=== PATIENT | male | born 1930 | race Caucasian/White ===

== ENCOUNTER → 2017-04-23 | Outpatient (CLI) | payer OTHER ==
[~2017-04-23] MED LIST: ARC10 PO; ASPI81TA28 PO; B-COTAB18 PO; FINA5TAB PO; GLC500 PO; LISI-461 PO; PANT40TA PO; SIMV40TA2 PO; TERA1CAP63 PO
[2017-04-23 12:28] LABS: HEMATOCRIT 34.1 % (42-52); MEAN CORPUSCULAR HEMOGLOBIN 29.5 pg (25-34); MEAN CORPUSCULAR HGB CONC 31.1 g/dl (32-36); MEAN PLATELET VOLUME 15.5 fL (7.4-10.4); PLATELET COUNT 199 K/uL (130-400); RED BLOOD COUNT 3.59 M/uL (4.7-6.1); WHITE BLOOD COUNT 4.67 K/uL (4.8-10.8)
[2017-04-23 13:12] LABS: BLOOD UREA NITROGEN 29 mg/dl (7-18); BUN/CREATININE RATIO 16.9 (10-20); CALCIUM 8.5 mg/dl (8.5-10.1); CARBON DIOXIDE 27 mmol/L (21-32); CHLORIDE 109 mmol/L (98-107); GLUCOSE 88 mg/dl (70-99); POTASSIUM 4.2 mmol/L (3.5-5.1); SODIUM 141 mmol/L (136-145)
== END | disposition home or self-care (01) ==
LOC: C.LABWYN 15:23
PROVIDERS: ATTEND Internal Medicine
DX: N18.9 Chronic kidney disease, unspecified (principal); M85.80 Other specified disorders of bone density and structure, unspecified site; E55.9 Vitamin D deficiency, unspecified

== ENCOUNTER → 2018-03-30 | Outpatient (CLI) | payer OTHER ==
[2018-03-30 12:54] LABS: HEMATOCRIT 36.2 % (42-52); HEMOGLOBIN 11.2 g/dL (14.0-18.0); MEAN CELL VOLUME 94.8 fL (80-100); MEAN CORPUSCULAR HEMOGLOBIN 29.3 pg (25-34); MEAN CORPUSCULAR HGB CONC 30.9 g/dl (32-36); MEAN PLATELET VOLUME 14.9 fL (7.4-10.4); PLATELET COUNT 220 K/uL (130-400); RED CELL DISTRIBUTION WIDTH CV 14.4 % (11.5-14.5); WHITE BLOOD COUNT 6.42 K/uL (4.8-10.8)
[2018-03-30 13:33] LABS: BLOOD UREA NITROGEN 31 mg/dl (7-18); CALCIUM 8.7 mg/dl (8.5-10.1); CARBON DIOXIDE 25 mmol/L (21-32); CREATININE 1.72 mg/dl (0.60-1.40); GLUCOSE 87 mg/dl (70-99); POTASSIUM 4.1 mmol/L (3.5-5.1); SODIUM 139 mmol/L (136-145)
== END | disposition home or self-care (01) ==
LOC: C.LABWYN 16:22
PROVIDERS: ATTEND Internal Medicine
DX: N18.2 Chronic kidney disease, stage 2 (mild) (principal)

== ENCOUNTER 2019-06-02 12:48 | Inpatient (IN) ==
[2019-06-02] MEDS ORDERED: OPTIRAY 320 125ml IV PRN (12:58)
--- NOTE | 2019-06-02 13:10 | CT Scan Report ---
HEAD CT NONCONTRAST CT DOSE: 1331.70 mGy.cm HISTORY: Stroke evaluation TECHNIQUE: Multiaxial CT images of the head were performed without the use of intravenous contrast. A utomated exposure control was utilized for this study. A dose lowering technique was utilized adheri ng to the principles of ALARA. Comparison: Head CT 05/15/2018. Findings: Mild mucosal thickening within the paranasal sinuses. The mastoid air cells are clear. 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 The calvarium and skull base are intact. There is no mass, hematoma, midli ne shift, acute infarct. White matter hypodensity is nonspecific but suggestive of microvascular isch emic change. The ventricles and sulci demonstrate mild age-related involutional changes. Focal area o f encephalomalacia within the left posterior temporal lobe consistent with an old MCA territory infar ct. Impression: No acute intracranial abnormality. Old left MCA territory infarct. Electronically signed by: Daryn Taylor M.D. 06/02/2019 1:08 PM
--- NOTE | 2019-06-02 13:16 | XRay Report ---
XR chest 1V portable CLINICAL HISTORY: weakness COMPARISON STUDY: 11/12/2018 FINDINGS: The heart is enlarged. There is no lobar consolidation. There is no failure. There are no s ignificant pleural effusions. There is minor basilar atelectasis/scarring.[ IMPRESSION: No active disease in the chest. Electronically signed by: Wesley Dinh M.D. 06/02/2019 1:15 PM
--- NOTE | 2019-06-02 13:16 | CT Scan Report ---
CT angio head w con CLINICAL HISTORY: weakness TECHNIQUE: CT angiography of the head was performed in a dynamic helical fashion during intravenous a dministration of 119 cc of Optiray 320. MIP imaging was performed. A dose lowering technique was util ized adhering to the principles of ALARA. CT DOSE: COMPARISON STUDY: May 15, 2018 FINDINGS: There are no lesion suspicious for aneurysm. There are no major intracranial branch occlusi ons. The dural venous sinuses appear patent. There is an old left temporal lobe infarct IMPRESSION: 1. Old left temporal lobe infarct 2. Otherwise unremarkable CT angiography of the brain. Electronically signed by: Wesley Dinh M.D. 06/02/2019 1:14 PM
--- NOTE | 2019-06-02 13:19 | CT Scan Report ---
CT angio neck with con CLINICAL HISTORY: 89 years-old Male presenting with weakness, stroke evaluation. TECHNIQUE: Multidetector CT angiography of the neck was performed after the administration of intrave nous contrast. 3-D volumetric and/or maximum intensity projection (MIP) images were subsequently boris nstructed for review. IV contrast: 119 mL of Optiray 320. One or more dose lowering techniques were u sed consistent with the principles of ALARA (as low as reasonably achievable), including automatic ex posure control, mA or kV adjustment to individual patient size, and/or use of iterative reconstructio n. Stenosis measurements were based on NASCET-like criteria (distal lumen diameter as the denominator for stenosis measurement). COMPARISON: 05/15/2018. CT DOSE (mGy.cm): The estimated cumulative dose is 1331.70. FINDINGS: Patch Sander topogram: Unremarkable. Aortic arch: Atherosclerosis of the three-vessel aortic arch with patent origins of the branch vessel s. Innominate artery: Patent. Right subclavian artery: Patent. Right common carotid artery: Patent. Right internal and external carotid arteries: Extensive largely calcified atherosclerotic plaque at t he carotid bifurcation. This does not result in significant narrowing of the origins or lumens of the internal/external carotid arteries. Left common carotid artery: Patent. Left internal and external carotid arteries: Predominantly calcified atherosclerotic plaque at the ca rotid bifurcation with less than 25% stenosis of the origin of the internal carotid artery. The remai nder of the course of the internal carotid artery is widely patent. External carotid artery origin an d proximal course narrowed less than 50% by noncalcified atherosclerotic plaque. Left subclavian artery: Patent. Vertebral arteries: Codominant vertebral arteries. Origins and courses of the bilateral vertebral art eries patent. Other: Limited intracranial evaluation within normal limits. Soft tissues of the neck normal allowing for the phase of contrast. Degenerative changes of the cervical spine. 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 Lung apices clear. IMPRESSION: 1. Atherosclerosis with less than 25% stenosis of the left ICA. No significant stenosis of the right ICA. 2. No evidence of focal vessel occlusion or dissection. Electronically signed by: Ole Allen M.D. 06/02/2019 1:18 PM
[2019-06-02 13:22] LABS: Basophils # (auto) 0.07 K/uL (0-0.2); Basophils % (auto) 1.4 %; Eosinophils # (auto) 0.71 K/uL (0-0.5); Eosinophils % (auto) 13.7 %; Hematocrit (blood only) 26.5 % (42-52); Hemoglobin 8.1 g/dL (14.0-18.0); Immature Granulocytes # (auto) 0.01 K/uL (0.00-0.02); Immature Granulocytes % (auto) 0.2 %; Lymphocytes # (auto) 0.56 K/uL (1.2-3.4); Lymphocytes % (auto) 10.8 %; Mean Corpuscular Hemoglobin 26.7 pg (25-34); Mean Corpuscular Hgb Conc 30.6 g/dL (32-36); Mean Corpuscular Volume 87.5 fL (80-100); Mean Platelet Volume 10.4 fL (7.4-10.4); Monocytes # (auto) 0.57 K/uL (0.11-0.59); Neutrophils # (auto) 3.25 K/uL (1.4-6.5); Neutrophils % (auto) 62.9 %; Platelet Count 207 K/uL (130-400); RDW Coefficient of Variation 16.4 % (11.5-14.5); RDW Standard Deviation 52.6 fL (36.4-46.3); Red Blood Count 3.03 M/uL (4.7-6.1); White Blood Count 5.17 K/uL (4.8-10.8)
[2019-06-02] MEDS ORDERED: ALTEPLASE For Stroke IV STA (13:28)
[2019-06-02 13:33] LABS: INR 1.1 (0.9-1.1); Partial Thromboplastin Ratio 0.9; Partial Thromboplastin Time 23.9 Seconds (21.0-31.0); Prothrombin Time 11.5 Seconds (9.0-12.0)
[2019-06-02] MEDS ORDERED: SODIUM CHLORIDE 0.9% 1000ML 500 ML IV ONE (13:36)
[2019-06-02] MEDS ORDERED: Alteplase Bolus 9 MG in SYRINGE 0 ML IV ONE (13:38)
[2019-06-02 13:39] LABS: Alanine Aminotransferase 13 U/L (12-78); Albumin Level 3.2 gm/dl (3.4-5.0); Aspartate Aminotransferase 10 U/L (15-37); BUN Creatinine Ratio 15.5 (10-20); Blood Urea Nitrogen 26 mg/dl (7-18); Calcium 7.8 mg/dl (8.5-10.1); Carbon Dioxide 27 mmol/L (21-32); Chloride 107 mmol/L (98-107); Est GFR (African American) 42.6; Est GFR (Non-African American) 36.8; Glucose 99 mg/dl (70-99); Magnesium 2.2 mg/dl (1.8-2.4); Potassium 4.4 mmol/L (3.5-5.1); Sodium 138 mmol/L (136-145)
[2019-06-02] MEDS ORDERED: ALTEPLASE, RECOMBINANT 81 MG in EMPTY BAG 0 ML IV ONE (13:39)
[2019-06-02] MEDS ORDERED: PRIMARY PLUMSET, PE LINED TUBING, 113 IN, NON-DEHP (2260-0500) IV ONE (13:39)
[2019-06-02 13:44] LABS: Albumin Globulin Ratio 0.9 (0.9-2); Alkaline Phosphatase 73 U/L (45-117); Bilirubin,Total 0.4 mg/dl (0.2-1); Globulin 3.6 gm/dl (2.5-4.0); Total Protein 6.8 gm/dl (6.4-8.2); Troponin I < 0.015 ng/ml (0-0.045)
[2019-06-02 13:49] LABS: iSTAT Creatinine 1.8 mg/dl (0.6-1.3); iSTAT Hemoglobin 8.2 g/dl (14.0-18.0); iSTAT Ionized Calcium 1.12 mmol/l (1.12-1.32); iSTAT Potassium 4.4 mEq/L (3.3-5.0)
[2019-06-02] MEDS: MAGNESIUM SULFATE / D5W 1 GM/100 ML BAG IV SCH ×2 (13:49→14:43)
[2019-06-02] MEDS: SODIUM CHLORIDE 0.9% 1000ML 1,000 ML IV SCH (13:49)
--- NOTE | 2019-06-02 13:59 | Emergency Department Note ---
Entered by Monica Crystal acting as a scribe for Vinny Pina DO History of Present Illness General Chief complaint: Stroke Alert Time Seen by Provider: 06/02/19 12:49 Source: family and EMS History of Present Illness Provider complaint: stroke symtpoms Onset (ago): hour(s) less than 1 Location: head Radiation: non-radiation Pain Consistency: + constant Quality: + other (stroke symtpoms) The patient is an 89 y/o male who presents to the emergency department for evaluation of stroke symptoms that began prior to arrival. EMS states that the last known well was when he was up and walking around at 09:30am. At 11:50am they note that he was found slumped over by staff. They note that he takes Plavix and aspirin daily. EMS states that the patient is conscious but was not answering questions well. The son notes that the patient does have a dementia history but a few days ago when they talked the patient was slightly confused. They note that the patient had a stroke in 04/2018. The patient was following commands but was not answering questions on exam. HPI and ROS are limited secondary to patients condition. Home Medications Home Medications Medication Instructions Recorded Confirmed Type aspirin [Aspirin Low Dose] 81 mg PO QAM 05/15/18 06/02/19 History finasteride 5 mg PO DAILY 05/15/18 06/02/19 History lisinopril 5 mg PO DAILY 05/15/18 06/02/19 History loratadine 10 mg PO DAILY 05/15/18 06/02/19 History pantoprazole 40 mg PO DAILYBB 05/15/18 06/02/19 History terazosin 10 mg PO DAILY 05/15/18 06/02/19 History vitamin B complex [B Complex 1] 1 tab PO DAILY 05/15/18 06/02/19 History clopidogrel 75 mg PO QAM #90 tab 05/18/18 06/02/19 Rx acetaminophen [Tylenol] 650 mg PO Q6H PRN 11/12/18 06/02/19 History atorvastatin [Lipitor] 40 mg PO QAM 11/12/18 06/02/19 History dextromethorphan-guaifenesin 5 ml PO Q4 PRN 11/12/18 06/02/19 History [Tussin DM] triamcinolone acetonide 1 applic TOPICAL BID PRN 06/02/19 06/02/19 History Allergies Allergy/AdvReac Type Severity Reaction Status Date / Time No Known Allergies Allergy Unverified 06/02/19 13:23 Past Med/Surg History Medical History History of ischemic left MCA stroke (Chronic) CKD (chronic kidney disease), stage III (Chronic) Hyperlipidemia (Chronic) Dementia (Chronic) BPH (benign prostatic hyperplasia) (Chronic) Hypertension (Chronic) Anemia (Chronic) Surgical History History of shoulder surgery (Resolved) History of hernia surgery (Resolved 2014) Hx of cataract surgery (Resolved 2013) Family History Other Hypertension Social History Preferred Language: Armenian Communication Ability: Impaired [employer]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 status: retired Other Information That Helps Us Care for You: No Feels Safe at Home: Yes Safety Concerns: Feels Safe At This Time Smoking Status: Never smoker Hx Alcohol Use: No Hx Substance Use: No Review of Systems HPI and ROS are limited secondary to patients condition. Physical Exam Vital Signs Vital Signs - 24 hr 06/02/19 12:54 06/02/19 13:52 06/02/19 14:07 Temperature 36.7 C Temperature Source Oral Sepsis Recent Fever Within 48 Hours No Sepsis Action Taken by Nursing No Action Required Pulse Rate 61 Pulse Rate [Apical] 60 57 L Pulse Rhythm Regular Pulse Rhythm [Apical] Regular Regular Pulse Strength Normal Pulse Strength [Apical] Normal Respiratory Rate 18 18 20 Respiratory Effort / Characteristics Non-Labored Spontaneous Non-Labored Spontaneous Non-Labored Spontaneous Respiratory Depth Normal Normal Normal Respiratory Pattern Regular Regular Regular Blood Pressure 131/52 L Blood Pressure [Left Arm] 120/51 L 120/62 Blood Pressure Mean 78 Blood Pressure Mean [Left Arm] 74 81 Blood Pressure Position [Left Arm] Lying Pulse Oximetry 99 99 97 Oxygen Delivery Method Room Air Room Air Room Air 06/02/19 14:22 06/02/19 14:37 06/02/19 14:52 Temperature Temperature Source Sepsis Recent Fever Within 48 Hours Sepsis Action Taken by Nursing Pulse Rate Pulse Rate [Apical] 67 58 L 64 Pulse Rhythm Pulse Rhythm [Apical] Regular Pulse Strength Pulse Strength [Apical] Normal Normal Respiratory Rate 18 20 20 Respiratory Effort / Characteristics Non-Labored Spontaneous Non-Labored Spontaneous Non-Labored Spontaneous Respiratory Depth Normal Normal Normal Respiratory Pattern Regular Regular Regular Blood Pressure Blood Pressure [Left Arm] 128/49 L 134/49 L 141/59 H Blood Pressure Mean Blood Pressure Mean [Left Arm] 75 77 86 Blood Pressure Position [Left Arm] Sitting Sitting Sitting Pulse Oximetry 99 99 100 Oxygen Delivery Method Room Air Room Air Room Air 06/02/19 15:07 06/02/19 15:22 06/02/19 15:37 Temperature Temperature Source Sepsis Recent Fever Within 48 Hours Sepsis Action Taken by Nursing Pulse Rate Pulse Rate [Apical] 74 63 63 Pulse Rhythm Pulse Rhythm [Apical] Regular Regular Regular Pulse Strength Pulse Strength [Apical] Respiratory Rate 20 20 20 Respiratory Effort / Characteristics Non-Labored Spontaneous Non-Labored Spontaneous Non-Labored Spontaneous Respiratory Depth Normal Normal Normal Respiratory Pattern Regular Regular Blood Pressure Blood Pressure [Left Arm] 151/60 H 132/63 138/57 L Blood Pressure Mean Blood Pressure Mean [Left Arm] 90 86 84 Blood Pressure Position [Left Arm] Lying Lying Lying Pulse Oximetry 98 97 97 Oxygen Delivery Method Room Air Room Air Room Air GENERAL: Patient is listless and slow to respond to questions. He does respond to questions and follows commands slowly. EYES: The conjunctivae are clear. The pupils are round and reactive. No gaze preference was noted. EARS, NOSE, MOUTH AND THROAT: The nose is without any evidence of any deformity. Mucous membranes are moist tongue is midline NECK: The neck is nontender and supple. RESPIRATORY: Normal respiratory effort is noted there is no evidence of wheezing rhonchi or rales CARDIOVASCULAR: Irregular rhythm was noted to auscultation. There was a systolic murmur noted to auscultation. GASTROINTESTINAL: The abdomen is soft. The abdomen is mildly distended. There is no tenderness. Rectal exam revealed brown stool that was heme-negative. MUSCULOSKELETAL/EXTREMITIES: There is no evidence of gross deformity full range of motion is noted in the hips and shoulders SKIN: There is no obvious evidence of any rash. Pedal edema was noted bilaterally. NEUROLOGIC: Patient appeared aphasic and could not answer questions. He mumbles and his speech was incomprehensible. Patient's payment specialist strength was symmetric but diminished bilaterally. Patient is able to hold each leg off the bed for less than 5 seconds. Course 1258: Past medical records reviewed. The patient was evaluated in room B01. A complete history and physical exam was performed. 1307: I spoke with Dr Sharla calabrese. 1352: I spoke with Amelia Rojas for Dr. Patton. She will evaluate for further management. 1234: I checked on the patient. 1435: I reevaluated the patient and he is looking much better and is talking now. Administered Medications Sodium Chloride (Nss 1000ml) 1,000 mls @ 50 mls/hr IV .Q20H HYACINTH Stop: 07/02/19 12:59 Last Admin: 06/02/19 13:49 Dose: 50 mls/hr Documented by: [id number] Ioversol (Optiray 320 125ml) 119 ml IV ONCE PRN PRN Reason: Interaction Checking Stop: 06/06/19 12:57 Last Admin: 06/02/19 12:59 Dose: 119 ml Documented by: [id number] Discontinued Medications Alteplase, Recombinant (Activase For Stroke) 1 ea IV NOW STA; Protocol Stop: 06/02/19 13:29 Last Admin: 06/02/19 14:36 Dose: Not Given Documented by: [id number] Alteplase, Recombinant 9 mg/ (Syringe) 9 mls @ 9 mls/min IV ONCE ONE Stop: 06/02/19 13:39 Last Admin: 06/02/19 13:37 Dose: 9 mls/min Documented by: [id number] Cosigned by: [id number] Alteplase, Recombinant 81 mg/ (EMPTY BAG) 0.81 mls @ 0.81 mls/hr IV ONCE ONE Stop: 06/02/19 13:40 Last Infusion: 06/02/19 14:43 Dose: 0 mls/hr Documented by: [id number] Cosigned by: [id number] Admin: 06/02/19 13:41 Dose: 0.8 mls/hr Documented by: [id number] Cosigned by: [id number] Magnesium Sulfate/Dextrose (Magnesium Sulfate / D5w) 1 gm in 100 mls @ 100 mls/hr IV Q1H HYACINTH Stop: 06/02/19 15:44 Last Admin: 06/02/19 14:43 Dose: 100 mls/hr Documented by: [id number] Infusion: 06/02/19 14:43 Dose: 100 mls/hr Documented by: [id number] Admin: 06/02/19 13:49 Dose: 100 mls/hr Documented by: [id number] Sodium Chloride (Nss 1000ml) 500 mls @ 999 mls/hr IV .Q31M ONE Stop: 06/02/19 14:06 Last Infusion: 06/02/19 14:47 Dose: 0 mls/hr Documented by: [id number] Admin: 06/02/19 13:49 Dose: 999 mls/hr Documented by: [id number] Medical Decision Making Differential Diagnosis Differential includes acute coronary syndrome, myocardial infarction, CVA, TIA, anemia, infection, pneumonia, UTI, pyelonephritis, poor nutrition, dehydration, electrolyte disturbance,hypoglycemia. Medical Records Attestation: I reviewed the patient's medical records. Home Medications Current Medication List: was personally reviewed by me Laboratory Data Attestation: I reviewed the patient's lab results. Result diagrams: 06/02/19 13:09 06/02/19 13:09 Lab Results 06/02/19 06/02/19 06/02/19 Range/Units 13:09 13:09 13:09 WBC 5.17 (4.8-10.8) K/uL RBC 3.03 L (4.7-6.1) M/uL Hgb 8.1 L (14.0-18.0) g/dL POC Hgb (14.0-18.0) g/dl Hct 26.5 L (42-52) % POC Hct (42-52) % MCV 87.5 (80-100) fL MCH 26.7 (25-34) pg MCHC 30.6 L (32-36) g/dL RDW Std Deviation 52.6 H (36.4-46.3) fL RDW Coeff of Octavio 16.4 H (11.5-14.5) % Plt Count 207 (130-400) K/uL MPV 10.4 (7.4-10.4) fL Immature Gran % (Auto) 0.2 % Neut % (Auto) 62.9 % Lymph % (Auto) 10.8 % [place] % (Auto) 11.0 % Eos % (Auto) 13.7 % Baso % (Auto) 1.4 % Immature Gran # (Auto) 0.01 (0.00-0.02) K/uL Neut # (Auto) 3.25 (1.4-6.5) K/uL Lymph # (Auto) 0.56 L (1.2-3.4) K/uL [place] # (Auto) 0.57 (0.11-0.59) K/uL Eos # (Auto) 0.71 H (0-0.5) K/uL Baso # (Auto) 0.07 (0-0.2) K/uL PT 11.5 (9.0-12.0) Seconds INR 1.1 (0.9-1.1) APTT 23.9 (21.0-31.0) Seconds PTT Ratio 0.9 POC Sodium (135-144) mEq/L Sodium 138 (136-145) mmol/L POC Potassium (3.3-5.0) mEq/L Potassium 4.4 (3.5-5.1) mmol/L POC Chloride (101-112) mEq/L Chloride 107 (98-107) mmol/L Carbon Dioxide 27 (21-32) mmol/L POC Total CO2 (24-31) mEq/l Anion Gap 4.0 (3-11) POC Anion Gap (16-25) mmol/L POC BUN (7-18) mg/dl BUN 26 H (7-18) mg/dl Creatinine 1.65 H (0.6-1.4) mg/dl POC Creatinine (0.6-1.3) mg/dl Est Cr Clr Drug Dosing Not Reportable Est GFR ( Amer) 42.6 Est GFR (Non-Af Amer) 36.8 BUN/Creatinine Ratio 15.5 (10-20) Glucose 99 (70-99) mg/dl POC Glucose (70-99) POC Glucose (other) (70-99) mg/dl Calcium 7.8 L (8.5-10.1) mg/dl POC Ioniz Calcium Juan C (1.12-1.32) mmol/l Magnesium 2.2 (1.8-2.4) mg/dl Total Bilirubin 0.4 (0.2-1) mg/dl AST 10 L (15-37) U/L ALT 13 (12-78) U/L Alkaline Phosphatase 73 (45-117) U/L Troponin I < 0.015 (0-0.045) ng/ml Total Protein 6.8 (6.4-8.2) gm/dl Albumin 3.2 L (3.4-5.0) gm/dl Globulin 3.6 (2.5-4.0) gm/dl Albumin/Globulin Ratio 0.9 (0.9-2) Urine Color Urine Appearance (Clear) Urine pH (4.5-7.5) Ur Specific [place] (1.000-1.030) Urine Protein (Negative) Urine Glucose (UA) (Negative) Urine Ketones (Negative) Urine Blood (Negative) Urine Nitrite (Negative) Urine Bilirubin (Negative) Urine Urobilinogen (Negative) Ur Leukocyte Esterase (Negative) Blood Type Antibody Screen 06/02/19 06/02/19 06/02/19 Range/Units 13:09 13:12 13:13 WBC (4.8-10.8) K/uL RBC (4.7-6.1) M/uL Hgb (14.0-18.0) g/dL POC Hgb 8.2 L (14.0-18.0) g/dl Hct (42-52) % POC Hct 24 L (42-52) % MCV (80-100) fL MCH (25-34) pg MCHC (32-36) g/dL RDW Std Deviation (36.4-46.3) fL RDW Coeff of Octavio (11.5-14.5) % Plt Count (130-400) K/uL MPV (7.4-10.4) fL Immature Gran % (Auto) % Neut % (Auto) % Lymph % (Auto) % [place] % (Auto) % Eos % (Auto) % Baso % (Auto) % Immature Gran # (Auto) (0.00-0.02) K/uL Neut # (Auto) (1.4-6.5) K/uL Lymph # (Auto) (1.2-3.4) K/uL [place] # (Auto) (0.11-0.59) K/uL Eos # (Auto) (0-0.5) K/uL Baso # (Auto) (0-0.2) K/uL PT (9.0-12.0) Seconds INR (0.9-1.1) APTT (21.0-31.0) Seconds PTT Ratio POC Sodium 139 (135-144) mEq/L Sodium (136-145) mmol/L POC Potassium 4.4 (3.3-5.0) mEq/L Potassium (3.5-5.1) mmol/L POC Chloride 104 (101-112) mEq/L Chloride (98-107) mmol/L Carbon Dioxide (21-32) mmol/L POC Total CO2 25 (24-31) mEq/l Anion Gap (3-11) POC Anion Gap 16.0 (16-25) mmol/L POC BUN 26 H (7-18) mg/dl BUN (7-18) mg/dl Creatinine (0.6-1.4) mg/dl POC Creatinine 1.8 H (0.6-1.3) mg/dl Est Cr Clr Drug Dosing Est GFR ( Amer) Est GFR (Non-Af Amer) BUN/Creatinine Ratio (10-20) Glucose (70-99) mg/dl POC Glucose 105 H (70-99) POC Glucose (other) 103 H (70-99) mg/dl Calcium (8.5-10.1) mg/dl POC Ioniz Calcium Juan C 1.12 (1.12-1.32) mmol/l Magnesium (1.8-2.4) mg/dl Total Bilirubin (0.2-1) mg/dl AST (15-37) U/L ALT (12-78) U/L Alkaline Phosphatase (45-117) U/L Troponin I (0-0.045) ng/ml Total Protein (6.4-8.2) gm/dl Albumin (3.4-5.0) gm/dl Globulin (2.5-4.0) gm/dl Albumin/Globulin Ratio (0.9-2) Urine Color Urine Appearance (Clear) Urine pH (4.5-7.5) Ur Specific [place] (1.000-1.030) Urine Protein (Negative) Urine Glucose (UA) (Negative) Urine Ketones (Negative) Urine Blood (Negative) Urine Nitrite (Negative) Urine Bilirubin (Negative) Urine Urobilinogen (Negative) Ur Leukocyte Esterase (Negative) Blood Type A Positive Antibody Screen NEGATIVE 06/02/19 Range/Units 14:17 WBC (4.8-10.8) K/uL RBC (4.7-6.1) M/uL Hgb (14.0-18.0) g/dL POC Hgb (14.0-18.0) g/dl Hct (42-52) % POC Hct (42-52) % MCV (80-100) fL MCH (25-34) pg MCHC (32-36) g/dL RDW Std Deviation (36.4-46.3) fL RDW Coeff of Octavio (11.5-14.5) % Plt Count (130-400) K/uL MPV (7.4-10.4) fL Immature Gran % (Auto) % Neut % (Auto) % Lymph % (Auto) % [place] % (Auto) % Eos % (Auto) % Baso % (Auto) % Immature Gran # (Auto) (0.00-0.02) K/uL Neut # (Auto) (1.4-6.5) K/uL Lymph # (Auto) (1.2-3.4) K/uL [place] # (Auto) (0.11-0.59) K/uL Eos # (Auto) (0-0.5) K/uL Baso # (Auto) (0-0.2) K/uL PT (9.0-12.0) Seconds INR (0.9-1.1) APTT (21.0-31.0) Seconds PTT Ratio POC Sodium (135-144) mEq/L Sodium (136-145) mmol/L POC Potassium (3.3-5.0) mEq/L Potassium (3.5-5.1) mmol/L POC Chloride (101-112) mEq/L Chloride (98-107) mmol/L Carbon Dioxide (21-32) mmol/L POC Total CO2 (24-31) mEq/l Anion Gap (3-11) POC Anion Gap (16-25) mmol/L POC BUN (7-18) mg/dl BUN (7-18) mg/dl Creatinine (0.6-1.4) mg/dl POC Creatinine (0.6-1.3) mg/dl Est Cr Clr Drug Dosing Est GFR ( Amer) Est GFR (Non-Af Amer) BUN/Creatinine Ratio (10-20) Glucose (70-99) mg/dl POC Glucose (70-99) POC Glucose (other) (70-99) mg/dl Calcium (8.5-10.1) mg/dl POC Ioniz Calcium Juan C (1.12-1.32) mmol/l Magnesium (1.8-2.4) mg/dl Total Bilirubin (0.2-1) mg/dl AST (15-37) U/L ALT (12-78) U/L Alkaline Phosphatase (45-117) U/L Troponin I (0-0.045) ng/ml Total Protein (6.4-8.2) gm/dl Albumin (3.4-5.0) gm/dl Globulin (2.5-4.0) gm/dl Albumin/Globulin Ratio (0.9-2) Urine Color Yellow Urine Appearance Clear (Clear) Urine pH 5.0 (4.5-7.5) Ur Specific [place] 1.022 (1.000-1.030) Urine Protein Negative (Negative) Urine Glucose (UA) Negative (Negative) Urine Ketones Negative (Negative) Urine Blood Negative (Negative) Urine Nitrite Negative (Negative) Urine Bilirubin Negative (Negative) Urine Urobilinogen Negative (Negative) Ur Leukocyte Esterase Negative (Negative) Blood Type Antibody Screen Imaging Data Radiologist's Impression: Radiology results as stated below per my review and the radiologist's interpretation: CT angio neck with con CLINICAL HISTORY: 89 years-old Male presenting with weakness, stroke evaluation. TECHNIQUE: Multidetector CT angiography of the neck was performed after the administration of intravenous contrast. 3-D volumetric and/or maximum intensity projection (MIP) images were subsequently reconstructed for review. IV contrast: 119 mL of Optiray 320. One or more dose lowering techniques were used consistent with the principles of ALARA (as low as reasonably achievable), including automatic exposure control, mA or kV adjustment to individual patient size, a nd/or use of iterative reconstruction. Stenosis measurements were based on NASCET-like criteria (distal lumen diameter as the denominator for stenosis measurement). COMPARISON: 05/15/2018. CT DOSE (mGy.cm): The estimated cumulative dose is 1331.70. FINDINGS: Job Setter topogram: Unremarkable. Aortic arch: Atherosclerosis of the three-vessel aortic arch with patent origins of the branch vessels. Innominate artery: Patent. Right subclavian artery: Patent. Right common carotid artery: Patent. Right internal and external carotid arteries: Extensive largely calcified atherosclerotic plaque at the carotid bifurcation. This does not result in significant narrowing of the origins or lumens of the internal/external carotid arteries. Left common carotid artery: Patent. Left internal and external carotid arteries: Predominantly calcified atherosclerotic plaque at the carotid bifurcation with less than 25% stenosis of the origin of the internal carotid artery. The remainder of the course of the internal carotid artery is widely patent. External carotid artery origin and proximal course narrowed less than 50% by noncalcified atherosclerotic plaque. Left subclavian artery: Patent. Vertebral arteries: Codominant vertebral arteries. Origins and courses of the bilateral vertebral arteries patent. Other: Limited intracranial evaluation within normal limits. Soft tissues of the neck normal allowing for the phase of contrast. Degenerative changes of the cervical spine. 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 Lung apices clear. IMPRESSION: 1. Atherosclerosis with less than 25% stenosis of the left ICA. No significant stenosis of the right ICA. 2. No evidence of focal vessel occlusion or dissection. Electronically signed by: Ole Allen M.D. 06/02/2019 1:[address] NONCONTRAST CT DOSE: 1331.70 mGy.cm HISTORY: Stroke evaluation TECHNIQUE: Multiaxial CT images of the head were performed without the use of in travenous contrast. Automated exposure control was utilized for this study. A dose lowering technique was utilized adhering to the principles of ALARA. Comparison: Head CT 05/15/2018. Findings: Mild mucosal thickening within the paranasal sinuses. The mastoid air cells are clear. 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 The calvarium and skull base are intact. There is no mass, hematoma, midline shift, acute infarct. White matter hypodensity is nonspecific but suggestive of microvascular ischemic change. The ventricles and sulci demonstrate mild age-related involutional changes. Focal area of encephalomalacia within the left posterior temporal lobe consistent with an old MCA territory infarct. Impression: No acute intracranial abnormality. Old left MCA territory infarct. Electronically signed by: Daryn Taylor M.D. 06/02/2019 1:[address] angio head w con CLINICAL HISTORY: weakness TECHNIQUE: CT angiography of the head was performed in a dynamic helical fashion during intravenous administration of 119 cc of Optiray 320. MIP imaging was pe rformed. A dose lowering technique was utilized adhering to the principles of ALARA. CT DOSE: COMPARISON STUDY: May 15, 2018 FINDINGS: There are no lesion suspicious for aneurysm. There are no major intracranial branch occlusions. The dural venous sinuses appear patent. There is an old left temporal lobe infarct IMPRESSION: 1. Old left temporal lobe infarct 2. Otherwise unremarkable CT angiography of the brain. Electronically signed by: Wesley Dinh M.D. 06/02/2019 1:14 PM XR chest 1V portable CLINICAL HISTORY: weakness COMPARISON STUDY: 11/12/2018 FINDINGS: The heart is enlarged. There is no lobar consolidation. There is no failure. There are no significant pleural effusions. There is minor basilar atelectasis/scarring.[ IMPRESSION: No active disease in the chest. Electronically signed by: Wesley Dinh M.D. 06/02/2019 1:15 PM ECG Data Attestation: I personally reviewed and interpreted this ECG as follows: Indication: other (stroke) Rate (beats per minute): 64 Rhythm: atrial fibrillation Findings: + other (poor R wave progression, ); no PVC Comparison ECG Date: from (11/12/18) Change: the following changes noted (A-fib replaced sinus rhythm ) Blood Pressure Blood Pressure Findings: Elevated blood pressure Blood Pressure Disposition: further management by hospitalist DONOVAN Narrative The patient is an 89-year-old male who presented to the emergency department as a stroke alert. I did receive a prehospital notification about this patient. The patient was in his normal state of health at approximately 930 this morning but he was found to be obtunded and confused. My exam revealed very significant change from his baseline mental status according to his family members. It was not a clear stroke presentation although it was definitely a change from his baseline. I consulted with the stroke neurologist at [facility]. After their evaluation they agreed given the patient's history presence of A. fib and lack of anticoagulation that he may be at high risk for an embolic CVA at this time. For this reason he was felt to be a candidate for TPA. He received TPA as well as IV fluids in the emergency department. He was reevaluated multiple times. The patient continued to improve while he was in the emergency department. I discussed his case with the on-call [facility]. They have agreed to evaluate the patient in the emergency department for further management disposition. We did discuss the benefits and the risks of TPA with the family members multiple times. Ultimately they did wish to have TPA even though they know the patient presented to the emergency department and was only a candidate for TPA on the extended window. Impression & Plan Acute CVA (cerebrovascular accident), Anemia, AMS (altered mental status) Critical Care Time Critical Care Time: Yes Total Critical Care Time: 60 I have personally spent 60 minutes of critical care time in the direct management of this patient. This includes bedside care, interpretation of diagn ostic studies, and testing, discussion with consultants, patient, and family members, and other required patient management activities. This 60 minutes is in excess of all separately billable procedures. Discharge Plan Visit Data Chief Complaint: Stroke Alert ED Provider: Vinny Pina Discharge Problem: Acute CVA (cerebrovascular accident), Anemia, AMS (altered mental status) Patient Disposition: Being Evaluated by Hospitalist Forms Stand Alone Forms: My [facility] Prescriptions Prescriptions: No Action pantoprazole 40 mg tablet,delayed release (DR/EC) 40 mg PO DAILYBB RF: 0 vitamin B complex [B Complex 1] Tablet 1 tab PO DAILY RF: 0 lisinopril 5 mg tablet 5 mg PO DAILY RF: 0 terazosin 10 mg capsule 10 mg PO DAILY RF: 0 finasteride 5 mg tablet 5 mg PO DAILY RF: 0 loratadine 10 mg Tablet 10 mg PO DAILY RF: 0 aspirin [Aspirin Low Dose] 81 mg Tablet,Delayed Release (Dr/Ec) 81 mg PO QAM RF: 0 clopidogrel 75 mg Tablet 75 mg PO QAM Qty: 90 RF: 0 atorvastatin [Lipitor] 40 mg tablet 40 mg PO QAM RF: 0 acetaminophen [Tylenol] 325 mg Capsule 650 mg PO Q6H PRN (Reason: Fever Or Pain) RF: 0 dextromethorphan-guaifenesin [Tussin DM] 10-100 mg/5 mL Liquid 5 ml PO Q4 PRN (Reason: Cough) RF: 0 triamcinolone acetonide 0.025 % lotion 1 applic topical BID PRN (Reason: Itching) RF: 0 Referrals Referrals: JARED ALATORRE ADDIE [Primary Care Provider] - The scribe's documentation has been prepared under my direction and personally reviewed by me in its entirety. I confirm that the note above accurately reflects all work, treatment, procedures, and medical decision making performed by me.
[2019-06-02 14:29] LABS: Appearance Urine Clear (Clear); Bilirubin Urine Negative (Negative); Blood Urine Negative (Negative); Color Urine Yellow; Glucose Urine UA Negative (Negative); Ketones Urine Negative (Negative); Leukocyte Esterase Urine Negative (Negative); Nitrite Urine Negative (Negative); Protein Urine Negative (Negative); Specific Gravity Urine 1.022 (1.000-1.030); Urobilinogen Urine Negative (Negative)
[2019-06-02] MEDS ORDERED: PNEUMOCOCCAL ADMINISTRATION CHARGE ONE (14:30)
[2019-06-02] MEDS ORDERED: PNEUMOCOCCAL POLYSACCHARIDES 25 MCG/0.5 ML VIAL/SYR IM ONE (14:30)
--- NOTE | 2019-06-02 15:10 | History & Physical Report ---
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 -Found altered and non-responsive around 11:30 am. Evaluated in ED with stroke a lert and telestroke neurologist recommended tpa administration with concern for global infarct -Other differentials include unwitnessed seizure with postictal state versus encephalopathy -CT head, CTA head/neck without acute abnormality but evidence of old L MCA infarct -Has clinically improved since and is A&Ox3, no focal neuro deficits at this time -Discussed with Dr. Hanna, who will continue managing in ICU -MRI brain w/wo contrast, 2D echo with bubble study ordered -Has been taking aspirin, plavix and statin -Neuro checks, PT, OT, speech therapy evaluations. Routine neuro consult (3) Hypertension: BP 138/57 -Maintain blood pressure below 180/105 mmHg during and for 24 hours following thrombolytic therapy -Management per ICU (4) Hyperlipidemia: Continue statin (5) Anemia: Hgb of 8.1 today (most recent hgb of 8.7 in March 2019, hgb of 10 last year) -Monitor for active bleeding in setting of tpa administration -Daily CBC (6) CKD (chronic kidney disease), stage III: Kidney function at baseline (baseline Cr~ 1.6-1.8) -Monitor with daily BMP (7) BPH (benign prostatic hyperplasia): Continue Finasteride, Terazosin Code status: FULL, per discussion with patient and family PCP: Savi Dispo: Admitted to ICU. Discharge planning ordered per stroke set protocol Patient seen in collaboration with Dr. Patton. Please see addendum. 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 Patient was last seen up and walking around around 9:30 this morning. Around 11:30 AM, staff found patient slumped over in his room staring forward and not speaking. Seemed to have bilateral weakness at this time. Stroke alert was called in route and patient was evaluated by tele-stroke upon arrival, who decided to administer TPA for concern of global infarct. Other differentials include unwitnessed seizure with postictal state versus encephalopathy. CT head, CTA head/neck without acute abnormality but evidence of old L MCA infarct. During time of evaluation in ED, patient was speaking clearly and was A&Ox 3 with some situational confusion. Denies any lightheadedness, headache, difficulty speaking, chest pain, SOB, weakness or sensory deficits. Is on plavix and statin for history of left MCA infarct in April 2018. Family notes some residual dysphagia and cognitive slowing since that time but patient still able to ambulate independently. Allergies Allergy/AdvReac Type Severity Reaction Status Date / Time No Known Allergies Allergy Unverified 06/02/19 13:23 Home Medications Home Medications Medication Instructions Recorded Confirmed Type aspirin [Aspirin Low Dose] 81 mg PO QAM 05/15/18 06/02/19 History finasteride 5 mg PO DAILY 05/15/18 06/02/19 History lisinopril 5 mg PO DAILY 05/15/18 06/02/19 History loratadine 10 mg PO DAILY 05/15/18 06/02/19 History pantoprazole 40 mg PO DAILYBB 05/15/18 06/02/19 History terazosin 10 mg PO DAILY 05/15/18 06/02/19 History vitamin B complex [B Complex 1] 1 tab PO DAILY 05/15/18 06/02/19 History clopidogrel 75 mg PO QAM #90 tab 05/18/18 06/02/19 Rx acetaminophen [Tylenol] 650 mg PO Q6H PRN 11/12/18 06/02/19 History atorvastatin [Lipitor] 40 mg PO QAM 11/12/18 06/02/19 History dextromethorphan-guaifenesin 5 ml PO Q4 PRN 11/12/18 06/02/19 History [Tussin DM] triamcinolone acetonide 1 applic TOPICAL BID PRN 06/02/19 06/02/19 History Past Med/Surg History Medical History History of ischemic left MCA stroke (Chronic) CKD (chronic kidney disease), stage III (Chronic) Hyperlipidemia (Chronic) Dementia (Chronic) BPH (benign prostatic hyperplasia) (Chronic) Hypertension (Chronic) Anemia (Chronic) Surgical History History of shoulder surgery (Resolved) History of hernia surgery (Resolved 2014) Hx of cataract surgery (Resolved 2013) Family History Other Hypertension Social History Preferred Language: Malagasy Communication Ability: Impaired Pigs Feet Finisher Required: No Beliefs That Will Affect Care: None marital status: Current Living Situation: Detention Current Living Situation Comment: [facility] current occupational status: retired Other Information That Helps Us Care for You: No Feels Safe at Home: Yes Safety Concerns: Feels Safe At This Time Smoking Status: Never smoker Hx Alcohol Use: No Hx Substance Use: No Review of Systems Review of Systems: At least ten systems reviewed and negative except as noted in the HPI. Physical Exam Physical Exam: General Appearance: WD/WN, vitals as above, NAD, sitting up in bed, pleasant, able to converse Head: normocephalic, atraumatic Eyes: normal inspection, PERRL, conjunctivae normal, anicteric sclerae ENT: hard of hearing, external ear and nose normal, oropharynx normal Neck: trachea midline, no thyromegaly normal visual inspection Respiratory: lungs clear to auscultation, no wheeze, rales, rhonchi. Normal insp/exp effort, no accessory muscle use Cardiovascular: regular rate, rhythm, systolic murmur, normal peripheral pulses, BLE edema (chronic R>L). Vessels: no JVD or carotid bruit Chest: Sternal bruising, otherwise normal inspection of chest Abdomen/GI: normal bowel sounds, soft, nontender, no hepatosplenomegaly Extremities/Musculoskelatal: no cyanosis or clubbing, extremities motor strength 5/5, no sensory deficits Neurologic: PERRL, EOMI, accommodation nl, no face palsy, no dysarthria CN's II-XI intact bilaterally and moves all extremities, did not assess gait Psychiatric: A+Ox3, euthymic affect Skin: no rashes, normal color, warm/dry Results & Data Vital Signs (Past 12 Hours) Vital Signs Temp Pulse Pulse Resp BP BP Pulse Ox 06/02/19 14:52 64 20 141/59 H 100 06/02/19 14:37 58 L 20 134/49 L 99 06/02/19 14:22 67 18 128/49 L 99 06/02/19 14:07 57 L 20 120/62 97 06/02/19 13:52 60 18 120/51 L 99 06/02/19 12:54 36.7 C 61 18 131/52 L 99 Laboratory Results Short CBC 06/02/19 06/02/19 06/02/19 Range/Units 13:09 13:09 13:09 WBC 5.17 (4.8-10.8) K/uL RBC 3.03 L (4.7-6.1) M/uL Hgb 8.1 L (14.0-18.0) g/dL POC Hgb (14.0-18.0) g/dl Hct 26.5 L (42-52) % POC Hct (42-52) % MCV 87.5 (80-100) fL MCH 26.7 (25-34) pg MCHC 30.6 L (32-36) g/dL RDW Std Deviation 52.6 H (36.4-46.3) fL RDW Coeff of Octavio 16.4 H (11.5-14.5) % Plt Count 207 (130-400) K/uL MPV 10.4 (7.4-10.4) fL Immature Gran % (Auto) 0.2 % Neut % (Auto) 62.9 % Lymph % (Auto) 10.8 % Spink % (Auto) 11.0 % Eos % (Auto) 13.7 % Baso % (Auto) 1.4 % Immature Gran # (Auto) 0.01 (0.00-0.02) K/uL Neut # (Auto) 3.25 (1.4-6.5) K/uL Lymph # (Auto) 0.56 L (1.2-3.4) K/uL Spink # (Auto) 0.57 (0.11-0.59) K/uL Eos # (Auto) 0.71 H (0-0.5) K/uL Baso # (Auto) 0.07 (0-0.2) K/uL PT 11.5 (9.0-12.0) Seconds INR 1.1 (0.9-1.1) APTT 23.9 (21.0-31.0) Seconds PTT Ratio 0.9 POC Sodium (135-144) mEq/L Sodium 138 (136-145) mmol/L POC Potassium (3.3-5.0) mEq/L Potassium 4.4 (3.5-5.1) mmol/L POC Chloride (101-112) mEq/L Chloride 107 (98-107) mmol/L Carbon Dioxide 27 (21-32) mmol/L POC Total CO2 (24-31) mEq/l Anion Gap 4.0 (3-11) POC Anion Gap (16-25) mmol/L POC BUN (7-18) mg/dl BUN 26 H (7-18) mg/dl Creatinine 1.65 H (0.6-1.4) mg/dl POC Creatinine (0.6-1.3) mg/dl Est Cr Clr Drug Dosing Not Reportable Est GFR ( Amer) 42.6 Est GFR (Non-Af Amer) 36.8 BUN/Creatinine Ratio 15.5 (10-20) Glucose 99 (70-99) mg/dl POC Glucose (70-99) POC Glucose (other) (70-99) mg/dl Calcium 7.8 L (8.5-10.1) mg/dl POC Ioniz Calcium Juan C (1.12-1.32) mmol/l Magnesium 2.2 (1.8-2.4) mg/dl Total Bilirubin 0.4 (0.2-1) mg/dl AST 10 L (15-37) U/L ALT 13 (12-78) U/L Alkaline Phosphatase 73 (45-117) U/L Troponin I < 0.015 (0-0.045) ng/ml Total Protein 6.8 (6.4-8.2) gm/dl Albumin 3.2 L (3.4-5.0) gm/dl Globulin 3.6 (2.5-4.0) gm/dl Albumin/Globulin Ratio 0.9 (0.9-2) Urine Color Urine Appearance (Clear) Urine pH (4.5-7.5) Ur Specific [place] (1.000-1.030) Urine Protein (Negative) Urine Glucose (UA) (Negative) Urine Ketones (Negative) Urine Blood (Negative) Urine Nitrite (Negative) Urine Bilirubin (Negative) Urine Urobilinogen (Negative) Ur Leukocyte Esterase (Negative) Blood Type Antibody Screen 06/02/19 06/02/19 06/02/19 Range/Units 13:09 13:12 13:13 WBC (4.8-10.8) K/uL RBC (4.7-6.1) M/uL Hgb (14.0-18.0) g/dL POC Hgb 8.2 L (14.0-18.0) g/dl Hct (42-52) % POC Hct 24 L (42-52) % MCV (80-100) fL MCH (25-34) pg MCHC (32-36) g/dL RDW Std Deviation (36.4-46.3) fL RDW Coeff of Octavio (11.5-14.5) % Plt Count (130-400) K/uL MPV (7.4-10.4) fL Immature Gran % (Auto) % Neut % (Auto) % Lymph % (Auto) % Spink % (Auto) % Eos % (Auto) % Baso % (Auto) % Immature Gran # (Auto) (0.00-0.02) K/uL Neut # (Auto) (1.4-6.5) K/uL Lymph # (Auto) (1.2-3.4) K/uL Spink # (Auto) (0.11-0.59) K/uL Eos # (Auto) (0-0.5) K/uL Baso # (Auto) (0-0.2) K/uL PT (9.0-12.0) Seconds INR (0.9-1.1) APTT (21.0-31.0) Seconds PTT Ratio POC Sodium 139 (135-144) mEq/L Sodium (136-145) mmol/L POC Potassium 4.4 (3.3-5.0) mEq/L Potassium (3.5-5.1) mmol/L POC Chloride 104 (101-112) mEq/L Chloride (98-107) mmol/L Carbon Dioxide (21-32) mmol/L POC Total CO2 25 (24-31) mEq/l Anion Gap (3-11) POC Anion Gap 16.0 (16-25) mmol/L POC BUN 26 H (7-18) mg/dl BUN (7-18) mg/dl Creatinine (0.6-1.4) mg/dl POC Creatinine 1.8 H (0.6-1.3) mg/dl Est Cr Clr Drug Dosing Est GFR ( Amer) Est GFR (Non-Af Amer) BUN/Creatinine Ratio (10-20) Glucose (70-99) mg/dl POC Glucose 105 H (70-99) POC Glucose (other) 103 H (70-99) mg/dl Calcium (8.5-10.1) mg/dl POC Ioniz Calcium Juan C 1.12 (1.12-1.32) mmol/l Magnesium (1.8-2.4) mg/dl Total Bilirubin (0.2-1) mg/dl AST (15-37) U/L ALT (12-78) U/L Alkaline Phosphatase (45-117) U/L Troponin I (0-0.045) ng/ml Total Protein (6.4-8.2) gm/dl Albumin (3.4-5.0) gm/dl Globulin (2.5-4.0) gm/dl Albumin/Globulin Ratio (0.9-2) Urine Color Urine Appearance (Clear) Urine pH (4.5-7.5) Ur Specific [place] (1.000-1.030) Urine Protein (Negative) Urine Glucose (UA) (Negative) Urine Ketones (Negative) Urine Blood (Negative) Urine Nitrite (Negative) Urine Bilirubin (Negative) Urine Urobilinogen (Negative) Ur Leukocyte Esterase (Negative) Blood Type A Positive Antibody Screen NEGATIVE 06/02/19 Range/Units 14:17 WBC (4.8-10.8) K/uL RBC (4.7-6.1) M/uL Hgb (14.0-18.0) g/dL POC Hgb (14.0-18.0) g/dl Hct (42-52) % POC Hct (42-52) % MCV (80-100) fL MCH (25-34) pg MCHC (32-36) g/dL RDW Std Deviation (36.4-46.3) fL RDW Coeff of Octavio (11.5-14.5) % Plt Count (130-400) K/uL MPV (7.4-10.4) fL Immature Gran % (Auto) % Neut % (Auto) % Lymph % (Auto) % Spink % (Auto) % Eos % (Auto) % Baso % (Auto) % Immature Gran # (Auto) (0.00-0.02) K/uL Neut # (Auto) (1.4-6.5) K/uL Lymph # (Auto) (1.2-3.4) K/uL Spink # (Auto) (0.11-0.59) K/uL Eos # (Auto) (0-0.5) K/uL Baso # (Auto) (0-0.2) K/uL PT (9.0-12.0) Seconds INR (0.9-1.1) APTT (21.0-31.0) Seconds PTT Ratio POC Sodium (135-144) mEq/L Sodium (136-145) mmol/L POC Potassium (3.3-5.0) mEq/L Potassium (3.5-5.1) mmol/L POC Chloride (101-112) mEq/L Chloride (98-107) mmol/L Carbon Dioxide (21-32) mmol/L POC Total CO2 (24-31) mEq/l Anion Gap (3-11) POC Anion Gap (16-25) mmol/L POC BUN (7-18) mg/dl BUN (7-18) mg/dl Creatinine (0.6-1.4) mg/dl POC Creatinine (0.6-1.3) mg/dl Est Cr Clr Drug Dosing Est GFR ( Amer) Est GFR (Non-Af Amer) BUN/Creatinine Ratio (10-20) Glucose (70-99) mg/dl POC Glucose (70-99) POC Glucose (other) (70-99) mg/dl Calcium (8.5-10.1) mg/dl POC Ioniz Calcium Juan C (1.12-1.32) mmol/l Magnesium (1.8-2.4) mg/dl Total Bilirubin (0.2-1) mg/dl AST (15-37) U/L ALT (12-78) U/L Alkaline Phosphatase (45-117) U/L Troponin I (0-0.045) ng/ml Total Protein (6.4-8.2) gm/dl Albumin (3.4-5.0) gm/dl Globulin (2.5-4.0) gm/dl Albumin/Globulin Ratio (0.9-2) Urine Color Yellow Urine Appearance Clear (Clear) Urine pH 5.0 (4.5-7.5) Ur Specific [place] 1.022 (1.000-1.030) Urine Protein Negative (Negative) Urine Glucose (UA) Negative (Negative) Urine Ketones Negative (Negative) Urine Blood Negative (Negative) Urine Nitrite Negative (Negative) Urine Bilirubin Negative (Negative) Urine Urobilinogen Negative (Negative) Ur Leukocyte Esterase Negative (Negative) Blood Type Antibody Screen BMP 06/02/19 13:09 Sodium 138 Potassium 4.4 Chloride 107 Carbon Dioxide 27 BUN 26 H Creatinine 1.65 H Glucose 99 Calcium 7.8 L Cardiac Enzymes 06/02/19 Range/Units 13:09 Troponin I < 0.015 (0-0.045) ng/ml Liver Function 06/02/19 Range/Units 13:09 Total Bilirubin 0.4 (0.2-1) mg/dl AST 10 L (15-37) U/L ALT 13 (12-78) U/L Alkaline Phosphatase 73 (45-117) U/L Albumin 3.2 L (3.4-5.0) gm/dl Urine 06/02/19 Range/Units 14:17 Urine Color Yellow Urine Appearance Clear (Clear) Urine pH 5.0 (4.5-7.5) Ur Specific [place] 1.022 (1.000-1.030) Urine Protein Negative (Negative) Urine Glucose (UA) Negative (Negative) Diagnostic Findings CT head: Impression: No acute intracranial abnormality. Old left MCA territory infarct. CTA head: IMPRESSION: 1. Old left temporal lobe infarct 2. Otherwise unremarkable CT angiography of the brain. CTA neck: IMPRESSION: 1. Atherosclerosis with less than 25% stenosis of the left ICA. No significant stenosis of the right ICA. 2. No evidence of focal vessel occlusion or dissection. CXR: IMPRESSION: No active disease in the chest. Code Status & VTE Plan VTE Prophylaxis Plan VTE Prophylaxis will be ordered: No Supervising Physician Co-Signing Physician Notes HISTORY: Record reviewed. Patient interviewed and examined. Care coordinated with Amelia Daley PA-C. Please refer to her documentation for patient's history. Briefly, 89-year-old gentleman with history of left MCA ischemic stroke in 2018; also has history of dementia. Episode of decreased responsiveness this morning without focal neurologic symptoms. Brought to ED for evaluation. Tele-stroke consultation with [facility] [place] and thrombolytic therapy with TPA was recommended and administered. Neurologic symptoms resolved with return to baseline neurocognitive status. EXAM: General- no distress Lungs- clear to auscultation; no respiratory distress Cardiovascular- RRR; III/ systolic murmur at base; no gallop; no JVD; 1+ pretibial edema Abdomen- + bowel sounds, soft, nontender Extremities- no cyanosis; no calf tenderness Neuro- alert, oriented only to person; PERRL, EOMI; no facial palsy; no dysarthria or aphasia; motor strength upper and lower extremities 5/5; plantar reflexes downgoing Skin- warm & dry DATA: CT head- old left MCA stroke, no acute findings. CTA head & neck- mild atherosclerosis left ICA. Chest x-ray did not show any active disease. Lab studies as noted. EKG performed at 1304 reviewed and demonstrated sinus rhythm at 64/minute, first-degree AV block, PACs, left axis deviation. ASSESSMENT AND PLAN: Known cerebrovascular disease with prior left MCA ischemic stroke without significant residual deficits. Episode of decreased responsiveness this morning, possible acute neurovascular event. No acute findings on CT of head without contrast. Thrombolytic therapy recommended by [facility] tele-stroke consult. Neuro symptoms improved after ministration of TPA. Check MRI of brain. Check echocardiogram. Monitor for arrhythmias. Check lipid profile. PT/OT/WASHROOM OPERATOR evaluations. Consult Neurology. Patient has history of dementia. Monitor for delirium. Avoid anticholinergic medications and other medications with MACARONI MAKER side effects whenever possible. Cardiac exam reveals grade 3/6 systolic murmur at base. Check echocardiogram to assess for valvular pathology. Resuscitation status discussed with patient and his family. Despite his dementia, patient was able to express his wishes that resuscitation be attempted in the event of cardiopulmonary arrest if there is a reasonable chance of meaningful recovery. However, he does not want extraordinary measures initiated or continued if terminally ill. Please refer to TYREE Daley's documentation for discussion of other issues.
[2019-06-02] MEDS ORDERED: INFLUENZA VACCINE HIGH DOSE 65+ 0.5 ML SYR IM ONE (15:30)
[2019-06-02] MEDS ORDERED: INFLUENZA ADMINISTRATION CHARGE ONE (15:30)
[2019-06-02] MEDS ORDERED: ICU PROTOCOL FOR HYPERGLYCEMIA PRN (17:24)
[2019-06-02] MEDS ORDERED: PHARMACIST DISCHARGE MED REC CONSULT PRN (17:36)
[2019-06-02] MEDS ORDERED: GADOBUTROL 65ML VIAL IV PRN (21:10)
--- NOTE | 2019-06-02 22:04 | Magnetic Resonance Report ---
MR brain wo/w con HISTORY: 89 years-old Male unresponsive episode concerning for cva, s/p tpa acutely altered mental s tatus with dementia. Clinical concern for possible stroke COMPARISON: Head CT of same day TECHNIQUE: Multiplanar multisequence MRI of the brain was obtained both with and without the use of 1 0.0 mL Gadavist. FINDINGS: Cnc Programmer localizer images demonstrate no gross extracranial abnormality. Study is motion degraded. There is no restricted diffusion to suggest acute or subacute infarction. Midline structures including the corpus callosum, brainstem, optic chiasm, pituitary and pineal gland s appear unremarkable on the sagittal T1 series. There is no cerebellar tonsillar herniation. Degener ative changes noted about the imaged cervical spine. There is no acute intracranial hemorrhage, midline shift, abnormal extra-axial collection, hydrocepha julio or intracranial mass identified. Age-related involutional changes with ex vacuo ventriculomegaly. Extensive patchy T2/FLAIR hyperintensities suggesting advanced chronic microvascular ischemic diseas e. Encephalomalacia and gliosis from remote infarct involves the left temporal lobe. Subcentimeter re mote lacunar infarct noted about the left lentiform nucleus. No abnormal intra-axial or extra-axial e nhancement. Major flow voids at the level of the skull base appear patent. Moderate mucosal thickening of the par anasal sinuses with areas of polypoid mucosal disease noted about the maxillary sinuses. Prior bilate ral cataract repair. Skull and soft tissues are unremarkable. IMPRESSION: 1. No acute intracranial abnormality. 2. No abnormal enhancement. 3. Chronic findings as above. The above report was generated using voice recognition software. It may contain grammatical, syntax o r spelling errors. Electronically signed by: Christ Fernandez M.D. 06/02/2019 10:03 PM
--- NOTE | 2019-06-03 08:43 | Critical Care Progress Note ---
Date of Service June 03, 2019 Assessment & Plan (1) Admitted to intensive care unit: Reason Critically Ill: Stroke alert s/p tPA administration NEURO Stroke Alert- concern for global infarct. tPA administered CT head, CTA head/neck without acute abnormality MRI Brain- No acute intracranial abnormality H/O of L MCA infarct in Apr 2018. H/O Dementia NIHSS 24 --> 3 today Neuro exam unremarkable [address] Head- no hemorrhage, mass effect, or evidence of acute territorial ischemia Restarted aspirin, plavix Appreciate Neuro assistance CV ECHO Reviewed HTN, HLD- Cont aspirin 81 mg and plavix 75 mg , Atorvastatin 40 mg qam, Lisinopril 5mg PULM No acute concerns ABD/GI DC'd IVF /RENAL CKD III- Kidney function at baseline (baseline Cr~ 1.6-1.8) BPH- Continue Finasteride, Terazosin ID No acute concerns for infectious etiology Cont trend fever curve HEME Anemia- around baseline Hgb ~8-10 Monitor for active bleeding in setting of tpa administration Daily CBC's DVT Prophylaxis: SCD's. PPx held 2/2 tPA admin FULL CODE DISPO: Stable for downgrade out of ICU. PT/OT pending Supervising Physician Co-Signing Physician Notes Dr. Galan was resident physician during care of patient. I separately evaluated patient for pacheco portions of the history and the exam. I was present during the critical portion of medical decision making, and I discussed the case with the resident. I generally agree with the findings and plan. Significant improvement in patient's symptoms from presentation. We have ordered day 2 stroke protocol orders. Stable for downgrade out of ICU. Subjective 89 yo M found in bed this AM in NAD. No reported overnight events. Pt with baseline dementia. No other acute concerns or complaints. Review of Systems Review of Systems: All systems reviewed & are unremarkable except as noted in HPI & below Physical Exam Constitutional: WD/WN, vitals as above Eyes: PERRL, conjunctivae normal, anicteric sclerae ENMT: external ear and nose normal, oropharynx normal Respiratory: normal respiratory effort, lungs clear to auscultation Cardiovascular: RRR, no murmur, no edema Gastrointestinal (Abdomen): normal bowel sounds, soft, nontender, no hepatosplenomegaly Skin: no rashes, warm and dry Neurologic: CN 2-12 grossly intact No focal deficits Decreased sensation b/l LE Psychiatric: Orientation: alert and oriented to person Results & Data Vital Signs (Past 12 Hours) Vital Signs Temp Pulse Resp BP Pulse Ox 06/03/19 06:00 80 23 117/41 L 06/03/19 05:00 76 19 144/54 H 91 06/03/19 04:00 67 19 125/48 L 98 06/03/19 03:00 64 16 132/39 L 99 06/03/19 02:00 62 18 128/38 L 98 06/03/19 01:00 63 20 137/95 95 06/03/19 00:00 36.7 C 67 20 96/52 L 97 06/02/19 23:00 69 20 122/41 L 97 06/02/19 22:00 65 23 142/49 H 96 06/02/19 21:30 122 H 23 138/57 L 96 Laboratory Results Laboratory Results - last 24 hr 06/02/19 06/02/19 06/02/19 13:13 14:17 16:50 Urine Color Yellow Urine Appearance Clear Urine pH 5.0 Ur Specific [place] 1.022 Urine Protein Negative Urine Glucose (UA) Negative Urine Ketones Negative Urine Blood Negative Urine Nitrite Negative Urine Bilirubin Negative Urine Urobilinogen Negative Ur Leukocyte Esterase Negative Nasal Screen MRSA (PCR) Negative Blood Type A Positive Antibody Screen NEGATIVE Medications Administered Current Inpatient Medications Aspirin (Ecotrin Ectab) 81 mg PO QAM [facility] Stop: 07/03/19 13:59 Clopidogrel Bisulfate (Plavix) 75 mg PO QAM [facility] Stop: 07/03/19 13:59 Gadobutrol (Gadavist 65ml) 10 ml IV ONCE PRN PRN Reason: Interaction Checking Stop: 06/06/19 21:09 Last Admin: 06/02/19 21:12 Dose: 10 ml Documented by: Miscellaneous (Icu Protocol For Hyperglycemia) 1 ea N/A PRN PRN; Protocol PRN Reason: Hyperglycemia Protocol Stop: 06/04/19 17:23 Miscellaneous Information (Pharmacist Discharge Med Rec Consult) 1 ea N/A UD PRN PRN Reason: Consult Stop: 07/02/19 17:35 PG Care Time/CCT Total # of Minutes Spent Total Time Spent with Patient: Total time spent is greater than 50% in coordination of care (as documented) at patient's floor/unit and/or counseling patient: Resident Activity Tracking Resident Involvement: Resident Care Provided Care Provided: Adult [facility] Medicine
[2019-06-03] MEDS: SODIUM CHLORIDE 0.9% 1000ML 1,000 ML IV SCH (11:45)
--- NOTE | 2019-06-03 13:12 | Neurology Consultation ---
Date of Consultation June 03, 2019 Assessment & Plan (1) Acute CVA (cerebrovascular accident): 1. MRI - no acute findings 2. CTA head and neck - no significant stenosis 3. TTE no ASD 4. CT head- repeated with no hemorrhage 5. continue plavix 75 mg and aspirin 81 mg daily as home dosing 6. optimize HTN, HLD LDL <70 consider patient age 7. PT/OT speech any discharge needs 8. pleasantly confused - ongoing dementia 9 EEG as outpatient follow up with Charissa Marrero [facility] neurology 8 weeks after discharge from hospital Supervising Physician Co-Signing Physician Notes Patient was seen and examined. Awake and alert although disoriented to place and time. Reported to be back to baseline per son. No family at bedside. PAtient following simple commands. Denies complaint. Sitter at bedside. S/p TPA for reported language difficulty. History of dementia and prior left MCA stroke on DAP. Differential diagnosis certainly includes aborted stroke Vs tia Vs decompensation of old CVA. MRI reviewed - No acute infarct. Chronic left MCA stroke. CTA head and neck review. No high grade stenosis or LVO. Repeat CT head negative for hemhorrhage. OK to transfer to floor. Continue home ASA and Plavix. Continue high intensity statin. Continue telemetry. Blood pressure goal is SB<140, DBP<90 mm Hg. Recommend routine EEG as outpatient. Disposition: SNF. Outpatient neurology follow up in 8 weeks. Please call with any further questions. History of Present Illness Reason for Consultation: unresponsive episode concerning for cva, s/p tpa Requesting Physician: Andreia Jewell DO Attending Physician: Andreia Jewell DO History of Present Illness Aric is a 89 year old male who lives at [facility] in [place] with a PMH- L MCA infarct in Apr 2018, HTN, HLD, CKD III, dementia who presented as a stroke alert. He was last seen up and walking around around 9:30 then at 11:30 AM, staff found him slumped over in his room staring forward and not speaking with bilateral weakness. Stroke alert was called in route and patient was evaluated by tele-stroke upon arrival, who decided to administer TPA for concern of global infarct. Accord to son who is bedside once the tPa was given he was speaking with some situational confusion. His home medications include plavix and statin for history of left MCA infarct in April 2018. Family notes some residual dysphagia and cognitive slowing since that time but patient still able to ambulate independently. denies CP, SOB, abdominal pain, one sided weakness, numbness tingling N, V, new visions changes. Allergies Allergy/AdvReac Type Severity Reaction Status Date / Time No Known Allergies Allergy Unverified 06/02/19 13:23 Home Medications Home Medications Medication Instructions Recorded Confirmed Type aspirin [Aspirin Low Dose] 81 mg PO QAM 05/15/18 06/02/19 History finasteride 5 mg PO DAILY 05/15/18 06/02/19 History lisinopril 5 mg PO DAILY 05/15/18 06/02/19 History loratadine 10 mg PO DAILY 05/15/18 06/02/19 History pantoprazole 40 mg PO DAILYBB 05/15/18 06/02/19 History terazosin 10 mg PO DAILY 05/15/18 06/02/19 History vitamin B complex [B Complex 1] 1 tab PO DAILY 05/15/18 06/02/19 History clopidogrel 75 mg PO QAM #90 tab 05/18/18 06/02/19 Rx acetaminophen [Tylenol] 650 mg PO Q6H PRN 11/12/18 06/02/19 History atorvastatin [Lipitor] 40 mg PO QAM 11/12/18 06/02/19 History dextromethorphan-guaifenesin 5 ml PO Q4 PRN 11/12/18 06/02/19 History [Tussin DM] triamcinolone acetonide 1 applic TOPICAL BID PRN 06/02/19 06/02/19 History Patient History Medical History History of ischemic left MCA stroke (Chronic) CKD (chronic kidney disease), stage III (Chronic) Hyperlipidemia (Chronic) Dementia (Chronic) BPH (benign prostatic hyperplasia) (Chronic) Hypertension (Chronic) Anemia (Chronic) Surgical History History of shoulder surgery (Resolved) History of hernia surgery (Resolved 2014) Hx of cataract surgery (Resolved 2013) Family History Other Hypertension Social History (Reviewed 06/02/19 @ 13:15 by Monica Art Preferred Language: Setswana Communication Ability: Impaired 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 Beliefs That Will Affect Care: None marital status: Current Living Situation: [facility] Current Living Situation Comment: [place] [facility] current occupational status: retired Other Information That Helps Us Care for You: No Feels Safe at Home: Yes Safety Concerns: Feels Safe At This Time Smoking Status: Never smoker Hx Alcohol Use: No Hx Substance Use: No Physical Exam Physical Exam: Physical Exam: Constitutional: appearance nourished, healthy and normal Ears, Nose, Mouth and Throat: mucous membranes moist, no injection and skin normal, eyes normal Cardiovascular: normal S-1 and S-2 and regular rate and rhythm Respiratory: clear to auscultation (CTA) and no rales, ronchi or wheeze Musculoskeletal: no peripheral edema and good distal pulses Skin: no stigmata of neurocutaneous disease noted and normal and intact Eyes: extraocular muscles intact (EOMI) and pupils equal, round and reactive to light (PERRL) NEUROLOGIC EXAMINATION: Mental status: Alert and interactive Oriented to full date and location Oriented to person Speech fluent with no evidence of aphasia Cranial Nerves slight flattening of nasolabial fold on right Reflexes: Deep tendon reflexes were symmetrical decreased due to body habitus Sensory: decreased sensation bilaterally LE Coordination: finger to nose no bi pass Gait/Stance: Posture sitting up in bed Motor: Negative for pronator drift of out stretched arms with eyes closed. 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 bilaterally lift legs off bed plantar flex ext 5/5 Results & Data Vital Signs (Past 12 Hours) Vital Signs Temp Pulse Pulse Resp BP BP Pulse Ox 06/03/19 12:00 76 19 131/48 L 96 06/03/19 11:00 80 30 H 137/44 L 96 06/03/19 10:00 71 22 121/49 L 96 06/03/19 09:04 72 22 96 06/03/19 09:00 70 20 129/43 L 96 06/03/19 08:31 78 23 157/36 H 06/03/19 08:00 37 C 81 23 128/46 L 97 06/03/19 07:00 69 18 147/56 H 97 06/03/19 06:00 80 23 117/41 L 06/03/19 05:00 76 19 144/54 H 91 06/03/19 04:00 67 19 125/48 L 98 06/03/19 03:00 64 16 132/39 L 99 06/03/19 02:00 62 18 128/38 L 98 Laboratory Results Abnormal lab results 06/02/19 06/02/19 Range/Units 13:09 13:12 POC Hgb 8.2 L (14.0-18.0) g/dl POC Hct 24 L (42-52) % POC BUN 26 H (7-18) mg/dl BUN 26 H (7-18) mg/dl Creatinine 1.65 H (0.6-1.4) mg/dl POC Creatinine 1.8 H (0.6-1.3) mg/dl POC Glucose (other) 103 H (70-99) mg/dl Calcium 7.8 L (8.5-10.1) mg/dl AST 10 L (15-37) U/L Albumin 3.2 L (3.4-5.0) gm/dl Diagnostic Findings TTE- EF 65-70% no ASD CXR- No active disease in the chest. CT head-No acute intracranial abnormality. Old left MCA territory infarct. CTA head-Old left temporal lobe infarct Otherwise unremarkable CT angiography of the brain. CTA neck-Atherosclerosis with less than 25% stenosis of the left ICA. No significant stenosis of the right ICA. No evidence of focal vessel occlusion or dissection. MRI brain- No acute intracranial abnormality. No abnormal enhancement. Chronic findings as above. CT head- 24 hour repeat no hemorrhage
--- NOTE | 2019-06-03 13:31 | CT Scan Report ---
CT SCAN OF THE BRAIN WITHOUT IV CONTRAST CLINICAL HISTORY: 24 hours status post TPA. COMPARISON STUDY: CT an MRI of the brain dated 06/02/2019. TECHNIQUE: Unenhanced axial CT scan of the brain is performed from the vertex to the skull base. A do se lowering technique was utilized adhering to the principles of ALARA. CT DOSE: 537.48 mGy.cm FINDINGS: Brain parenchyma: Left temporal encephalomalacia is unchanged and consistent with a remote infarct. T here are age-related involutional changes noting moderate subcortical and periventricular microangio pathic change. There is no hemorrhage, mass effect, or evidence of acute territorial ischemia by CT c riteria. Weston-white matter differentiation is preserved. No extra-axial fluid collection is seen. Ventricles, sulci, cisterns: Prominent secondary to involutional change. Intracranial vasculature: There is atherosclerotic calcification of the cavernous carotid arteries. Calvarium: Unremarkable. Sinuses and mastoids: The visualized paranasal sinuses are clear. The mastoid air cells are well pneu matized. Orbits: The bony orbits are grossly intact. There are bilateral ocular lens implants. IMPRESSION: 1. There is no hemorrhage, mass effect, or evidence of acute territorial ischemia by CT criteria. 2. Senescent change and remote left temporal lobe infarct as above. Electronically signed by: Rich Titus M.D. 06/03/2019 1:30 PM
--- NOTE | 2019-06-03 13:52 | Hospitalist Progress Note ---
Date of Service June 03, 2019 Assessment & Plan (1) Stroke: s/p TPA with resolution of symptoms, pt mentating at baseline today with dementia at baseline in setting of prior strokes. DAPT restarted, cont statin. Neuro requests outpatient EEG and 8 week follow-up. To SNF when avail. (2) Hypertension: Home lisinopril on hold. BP at goal. (3) Hyperlipidemia: Continue statin (4) Anemia: no active bleeding post-tpa administration. H/H at baseline, which is lower than normal. Iron studies in am. Likely 2/2 chronic disease. (5) CKD (chronic kidney disease), stage III: Kidney function at baseline (baseline Cr~ 1.6-1.8) -Monitor with daily BMP (6) BPH (benign prostatic hyperplasia): Finasteride, Terazosin restarted (7) DVT prophylaxis: SCds s/p TPA administration Full Code Dispo-to SNF when bed available Andreia Jewell DO [facility] Hospitalist Subjective disoriented to person, place or time follows instructions but gets confused on occasion, for example, closes eyes when I ask him to open them. appears to be tolerating PO mentating at baseline per neurology notes, who spoke with family. transitioned to the PCU after TPA administration yesterday and appears to be doing well in general. Review of Systems Review of Systems: Unobtainable due to mental health condition (progressed dementia) Physical Exam Physical Exam: CONSTITUTIONAL: WNWD, vitals as above, generally well- appearing EYES: unable to perform EOMI test as couldn't follow the instruction, PERRL, normal conjunctivae, no scleral icterus ENT: MMM RESPIRATORY: clear to auscultation bilaterally, no crackles, rales or wheezes, normal respiratory effort CARDIOVASCULAR: regular rate and rhythm, 3/6 TONIO heard, no gallops or rubs, no JVD, no peripheral edema GASTROINTESTINAL: normal bowel sounds, soft, nontender, nondistended MUSCULOSKELETAL: strength 5/5 throughout, moves all extremities equally, head is normocephalic and atraumatic SKIN: warm and dry NEUROLOGIC: unable to elicit brachioradialis or patellar reflexes as patient was tensing, no facial palsy, no dysarthria. CN 2-12 grossly intact, normal cognition, normal speech PSYCHIATRIC: alert cooperative and disoriented to person, place and time. Results & Data Vital Signs (Past 12 Hours) Vital Signs Temp Pulse Pulse Resp BP BP Pulse Ox 06/03/19 13:00 76 29 H 127/49 L 95 06/03/19 12:00 76 19 131/48 L 96 06/03/19 11:00 80 30 H 137/44 L 96 06/03/19 10:00 71 22 121/49 L 96 06/03/19 09:04 72 22 96 06/03/19 09:00 70 20 129/43 L 96 06/03/19 08:31 78 23 157/36 H 06/03/19 08:00 37 C 81 23 128/46 L 97 06/03/19 07:00 69 18 147/56 H 97 06/03/19 06:00 80 23 117/41 L 06/03/19 05:00 76 19 144/54 H 91 06/03/19 04:00 67 19 125/48 L 98 06/03/19 03:00 64 16 132/39 L 99 06/03/19 02:00 62 18 128/38 L 98 Laboratory Results Urine 06/02/19 Range/Units 14:17 Urine Color Yellow Urine Appearance Clear (Clear) Urine pH 5.0 (4.5-7.5) Ur Specific [place] 1.022 (1.000-1.030) Urine Protein Negative (Negative) Urine Glucose (UA) Negative (Negative) Medications Administered Current Inpatient Medications Aspir[facility]ab) [facility] Stop: 07/03/19 13:59 Clopidogrel Bisulfate (Plavix) [facility] Stop: 07/03/19 13:59 Gadobutrol (Gadavist 65ml) 10 ml IV ONCE PRN PRN Reason: Interaction Checking Stop: 06/06/19 21:09 Last Admin: 06/02/19 21:12 Dose: 10 ml Documented by: Miscellaneous (I[facility] Protocol For Hyperglycemia) 1 ea N/A PRN PRN; Protocol PRN Reason: Hyperglycemia Protocol Stop: 06/04/19 17:23 Miscellaneous Information (Pharmacist Discharge Med Rec Consult) 1 ea N/A UD PRN PRN Reason: Consult Stop: 07/02/19 17:35
[2019-06-03 14:14] LABS: Hematocrit (blood only) 27.8 % (42-52); Hemoglobin 8.5 g/dL (14.0-18.0); Mean Corpuscular Hemoglobin 26.6 pg (25-34); Mean Corpuscular Hgb Conc 30.6 g/dL (32-36); Mean Corpuscular Volume 87.1 fL (80-100); Mean Platelet Volume 10.6 fL (7.4-10.4); Platelet Count 219 K/uL (130-400); RDW Coefficient of Variation 16.4 % (11.5-14.5); Red Blood Count 3.19 M/uL (4.7-6.1); White Blood Count 7.46 K/uL (4.8-10.8)
[2019-06-03 14:39] LABS: BUN Creatinine Ratio 15.1 (10-20); Blood Urea Nitrogen 28 mg/dl (7-18); Calcium 8.3 mg/dl (8.5-10.1); Carbon Dioxide 24 mmol/L (21-32); Chloride 109 mmol/L (98-107); Cholesterol 80 mg/dl (0-200); Est GFR (African American) 37.9; Est GFR (Non-African American) 32.7; Glucose 121 mg/dl (70-99); Potassium 4.4 mmol/L (3.5-5.1); Sodium 140 mmol/L (136-145)
[2019-06-03 14:42] LABS: Chol HDL Ratio 3; HDL Cholesterol 30 mg/dl; LDL Cholesterol Calculated 34 mg/dl; Triglycerides 82 mg/dl (0-150); VLDL Cholesterol 16 mg/dl
[2019-06-03] MEDS: ASPIRIN 81 MG ECTAB PO SCH (15:14)
[2019-06-03] MEDS: CLOPIDOGREL BISULFATE 75 MG TAB PO SCH (15:14)
[2019-06-03] MEDS: ATORVASTATIN 40 MG TAB PO SCH (20:39)
[2019-06-03] MEDS: OLANZapine 10 MG/2.1 ML SDV IM PRN (20:52)
[2019-06-04] MEDS: OLANZapine 10 MG/2.1 ML SDV IM PRN ×2 (02:33→21:31)
[2019-06-04] MEDS: PANTOprazole 40 MG TAB PO SCH (05:30)
[2019-06-04 07:14] LABS: Hematocrit (blood only) 27.3 % (42-52); Hemoglobin 8.4 g/dL (14.0-18.0); Mean Corpuscular Hemoglobin 26.7 pg (25-34); Mean Corpuscular Hgb Conc 30.8 g/dL (32-36); Mean Corpuscular Volume 86.7 fL (80-100); Mean Platelet Volume 10.5 fL (7.4-10.4); Platelet Count 227 K/uL (130-400); RDW Coefficient of Variation 16.3 % (11.5-14.5); RDW Standard Deviation 51.8 fL (36.4-46.3); Red Blood Count 3.15 M/uL (4.7-6.1); White Blood Count 8.02 K/uL (4.8-10.8)
[2019-06-04 07:58] LABS: BUN Creatinine Ratio 14.8 (10-20); Blood Urea Nitrogen 27 mg/dl (7-18); Calcium 8.3 mg/dl (8.5-10.1); Carbon Dioxide 25 mmol/L (21-32); Chloride 112 mmol/L (98-107); Est GFR (African American) 37.6; Est GFR (Non-African American) 32.4; Glucose 93 mg/dl (70-99); Iron 33 mcg/dl (35-175); Potassium 3.9 mmol/L (3.5-5.1); Sodium 142 mmol/L (136-145)
[2019-06-04 08:02] LABS: Ferritin 24.8 ng/ml (8-388); Total Iron Binding Capacity 347 mcg/dl (250-450)
[2019-06-04] MEDS: TERAZOSIN HCL 5 MG CAP PO SCH (11:04)
[2019-06-04] MEDS: LORATADINE 10 MG TAB PO SCH (11:04)
[2019-06-04] MEDS: ASPIRIN 81 MG ECTAB PO SCH (11:04)
[2019-06-04] MEDS: CLOPIDOGREL BISULFATE 75 MG TAB PO SCH (11:05)
[2019-06-04] MEDS: VITAMIN B COMPLEX TAB PO SCH (11:05)
[2019-06-04] MEDS: FINASTERIDE 5 MG TAB PO SCH (11:05)
--- NOTE | 2019-06-04 13:14 | Hospitalist Progress Note ---
Date of Service June 04, 2019 Assessment & Plan (1) Stroke: s/p TPA with resolution of symptoms, pt mentating at baseline today with dementia at baseline in setting of prior strokes. cont DAPT and statin. Neuro requests outpatient EEG and 8 week follow-up. To SNF when avail. (2) Hypertension: Home lisinopril on hold. BP at goal. (3) Hyperlipidemia: Continue statin (4) Iron deficiency anemia: started iron supplements this am, PCP to follow-up and further investigate based on family wishes/need (5) CKD (chronic kidney disease), stage III: Kidney function at baseline (baseline Cr~ 1.6-1.8) -Monitor with daily BMP (6) BPH (benign prostatic hyperplasia): Finasteride, Terazosin restarted (7) DVT prophylaxis: Heparin Full Code Dispo-to SNF when bed available DO Evie Martinez Hospitalist Subjective Pt appears to be clinically stable and improved He appears to be mentating at baseline He is calm and cooperative He doesn't know why he is here but he feels well overall and denies any symptoms. Review of Systems Review of Systems: All systems reviewed & are unremarkable except as noted in HPI & below (baseline dementia is noted) Physical Exam Physical Exam: CONSTITUTIONAL: WNWD, vitals as above, generally well- appearing EYES: pupils are equal bilaterally, glasses in place but patient reports not being able to see me or my fingers well, normal conjunctivae, no scleral icterus ENT: MMM RESPIRATORY: clear to auscultation bilaterally, no crackles, rales or wheezes, normal respiratory effort CARDIOVASCULAR: regular rate and rhythm, 3/6 TONIO heard, no gallops or rubs, no JVD, no peripheral edema GASTROINTESTINAL: normal bowel sounds, soft, nontender, nondistended MUSCULOSKELETAL: strength 5/5 throughout, moves all extremities equally, head is normocephalic and atraumatic SKIN: warm and dry NEUROLOGIC: arms moving equally, unable to get him to participate in moving his legs today, but passive motion was equal. CN 2-12 grossly intact, normal cognition, normal speech PSYCHIATRIC: sleeping when i arrived, but easily arousable to voice. Results & Data Vital Signs (Past 12 Hours) Vital Signs Temp Pulse Resp BP BP Pulse Ox 06/04/19 11:25 36.4 C L 61 22 131/46 L 116/45 L 98 06/04/19 07:05 36.9 C 87 22 133/54 L 91 06/04/19 03:24 36.7 C 85 18 134/65 93 Laboratory Results Short CBC 06/03/19 06/04/19 Range/Units 14:01 06:50 WBC 7.46 8.02 (4.8-10.8) K/uL Hgb 8.5 L 8.4 L (14.0-18.0) g/dL Hct 27.8 L 27.3 L (42-52) % Plt Count 219 227 (130-400) K/uL BMP 06/03/19 06/04/19 14:01 06:50 Sodium 140 142 Potassium 4.4 3.9 Chloride 109 H 112 H Carbon Dioxide 24 25 BUN 28 H 27 H Creatinine 1.82 H 1.83 H Glucose 121 H 93 Calcium 8.3 L 8.3 L Medications Administered Current Inpatient Medications Aspirin (Ecotrin Ectab) [facility] [place] [facility] [place]: 07/03/19 13:59 Last Admin: 06/04/19 11:04 Dose: 81 mg Documented by: Atorvastatin Calcium (Lipitor) 40 mg PO HS [facility] Stop: 07/03/19 20:59 Last Admin: 06/03/19 20:39 Dose: 40 mg Documented by: Clopidogrel Bisulfate (Plavix) 75 mg PO QAM [facility] Stop: 07/03/19 13:59 Last Admin: 06/04/19 11:05 Dose: 75 mg Documented by: Ferrous Sulfate (Feosol) 325 mg PO BIDM [facility] Stop: 07/04/19 16:59 Finasteride (Proscar) 5 mg PO DAILY [facility] Stop: 07/04/19 08:59 Last Admin: 06/04/19 11:05 Dose: 5 mg Documented by: Gadobutrol (Gadavist 65ml) 10 ml IV ONCE PRN PRN Reason: Interaction Checking Stop: 06/06/19 21:09 Last Admin: 06/02/19 21:12 Dose: 10 ml Documented by: Loratadine (Claritin) 10 mg PO DAILY [facility] Stop: 07/04/19 08:59 Last Admin: 06/04/19 11:04 Dose: 10 mg Documented by: Miscellaneous ([facility] Protocol For Hyperglycemia) 1 ea N/A PRN PRN; Protocol PRN Reason: Hyperglycemia Protocol Stop: 06/04/19 17:23 Miscellaneous Information (Pharmacist Discharge Med Rec Consult) 1 ea N/A UD PRN PRN Reason: Consult Stop: 07/02/19 17:35 Olanzapine (Zyprexa) 2.5 mg IM Q4H PRN PRN Reason: Anxiety/Agitation Stop: 07/03/19 19:46 Last Admin: 06/04/19 02:33 Dose: 2.5 mg Documented by: Pantoprazole Sodium ([facility]ix) [facility] Stop: 07/04/19 06:29 Last Admin: 06/04/19 05:30 Dose: 40 mg Documented by: Terazosin HCl (Hytrin) 10 mg PO DAILY [facility] Stop: 07/04/19 08:59 Last Admin: 06/04/19 11:04 Dose: 10 mg Documented by: Vitamin B Complex (Vitamin B Complex) 1 tab PO DAILY [facility] Stop: 07/04/19 08:59 Last Admin: 06/04/19 11:05 Dose: 1 tab Documented by:
[2019-06-04] MEDS: FERROUS SULFATE 325 MG TAB PO SCH (18:43)
[2019-06-04] MEDS: ATORVASTATIN 40 MG TAB PO SCH (21:22)
[2019-06-04] MEDS: HEPARIN SOD 5,000 UNIT/0.5 ML VIAL SQ SCH (21:27)
[2019-06-05] MEDS: OLANZapine 10 MG/2.1 ML SDV IM PRN (05:10)
[2019-06-05] MEDS: HEPARIN SOD 5,000 UNIT/0.5 ML VIAL SQ SCH ×3 (05:30→20:53)
[2019-06-05] MEDS: ASPIRIN 81 MG ECTAB PO SCH (08:56)
[2019-06-05] MEDS: CLOPIDOGREL BISULFATE 75 MG TAB PO SCH (08:56)
[2019-06-05] MEDS: LORATADINE 10 MG TAB PO SCH (08:56)
[2019-06-05] MEDS: VITAMIN B COMPLEX TAB PO SCH (08:56)
[2019-06-05] MEDS: FERROUS SULFATE 325 MG TAB PO SCH ×2 (08:56→17:40)
[2019-06-05] MEDS: FINASTERIDE 5 MG TAB PO SCH (08:56)
[2019-06-05] MEDS: TERAZOSIN HCL 5 MG CAP PO SCH (08:56)
[2019-06-05] MEDS: PANTOprazole 40 MG TAB PO SCH (08:56)
--- NOTE | 2019-06-05 14:40 | Hospitalist Progress Note ---
Date of Service June 05, 2019 Assessment & Plan (1) Stroke: s/p TPA with resolution of symptoms, pt mentating at baseline today with dementia at baseline in setting of prior strokes. cont DAPT and statin. Neuro requests outpatient EEG and 8 week follow-up. To SNF when avail. (2) Hypertension: restart lisinopril in am. (3) Hyperlipidemia: Continue statin (4) Iron deficiency anemia: started iron supplements this am, PCP to follow-up and further investigate based on family wishes/need (5) CKD (chronic kidney disease), stage III: Kidney function at baseline (baseline Cr~ 1.6-1.8) -Monitor with daily BMP (6) BPH (benign prostatic hyperplasia): Finasteride, Terazosin restarted (7) DVT prophylaxis: Heparin Full Code Dispo-to SNF when bed available DO Evie Martinez Hospitalist Subjective overnight pt is disoriented and somnolent at this time. IM Zyprexa given overnight twice Review of Systems Review of Systems: Unobtainable due to mental health condition Physical Exam Physical Exam: CONSTITUTIONAL: WNWD, vitals as above, generally somnolent and delirious EYES: pupils are equal bilaterally, normal conjunctivae, no scleral icterus ENT: MMM RESPIRATORY: clear to auscultation bilaterally, no crackles, rales or wheezes, normal respiratory effort CARDIOVASCULAR: regular rate and rhythm, 3/6 TONIO heard, no gallops or rubs, no JVD, no peripheral edema GASTROINTESTINAL: normal bowel sounds, soft, nontender, nondistended MUSCULOSKELETAL: unable to obtain as patient uncooperative with exam SKIN: warm and dry NEUROLOGIC: unable to obtain as patient uncooperative with exam PSYCHIATRIC: sleeping when i arrived, but easily arousable to voice. Cannot orient, speaks using unintelligible words. Results & Data Vital Signs (Past 12 Hours) Vital Signs Temp Pulse Resp BP BP Pulse Ox 06/05/19 12:00 36.8 C 72 22 131/58 L 95 06/05/19 07:50 36.8 C 87 28 H 163/81 H 95 06/05/19 03:44 36.8 C 91 H 20 154/60 H 94 Medications Administered Current Inpatient Medications Aspirin (Ecotrin Ectab) 81 mg PO QAM [facility] Stop: 07/03/19 13:59 Last Admin: 06/05/19 08:56 Dose: 81 mg Documented by: Atorvastatin Calcium (Lipitor) 40 mg PO HS [facility] Stop: 07/03/19 20:59 Last Admin: 06/04/19 21:22 Dose: 40 mg Documented by: Clopidogrel Bisulfate (Plavix) 75 mg PO QAM [facility] Stop: 07/03/19 13:59 Last Admin: 06/05/19 08:56 Dose: 75 mg Documented by: Ferrous Sulfate (Feosol) 325 mg PO BIDM [facility] Stop: 07/04/19 16:59 Last Admin: 06/05/19 08:56 Dose: 325 mg Documented by: Finasteride (Proscar) 5 mg PO DAILY [facility] Stop: 07/04/19 08:59 Last Admin: 06/05/19 08:56 Dose: 5 mg Documented by: Gadobutrol (Gadavist 65ml) 10 ml IV ONCE PRN PRN Reason: Interaction Checking Stop: 06/06/19 21:09 Last Admin: 06/02/19 21:12 Dose: 10 ml Documented by: Heparin Sodium (Porcine) (Heparin Sodium (Porcine)) 5,000 units SQ Q8 [facility] Stop: 07/04/19 21:59 Last Admin: 06/05/19 13:49 Dose: 5,000 units Documented by: Loratadine (Claritin) 10 mg PO DAILY [facility] Stop: 07/04/19 08:59 Last Admin: 06/05/19 08:56 Dose: 10 mg Documented by: Miscellaneous Information (Pharmacist Discharge Med Rec Consult) 1 ea N/A UD PRN PRN Reason: Consult Stop: 07/02/19 17:35 Pantoprazole Sodium (Protonix) 40 mg PO DAILYBB [facility] Stop: 07/04/19 06:29 Last Admin: 06/05/19 08:56 Dose: 40 mg Documented by: Terazosin HCl (Hytrin) 10 mg PO DAILY [facility] Stop: 07/04/19 08:59 Last Admin: 06/05/19 08:56 Dose: 10 mg Documented by: Vitamin B Complex (Vitamin B Complex) 1 tab PO DAILY [facility] Stop: 07/04/19 08:59 Last Admin: 06/05/19 08:56 Dose: 1 tab Documented by:
[2019-06-05] MEDS: ATORVASTATIN 40 MG TAB PO SCH (20:53)
[2019-06-06] MEDS: HEPARIN SOD 5,000 UNIT/0.5 ML VIAL SQ SCH ×3 (05:57→21:26)
[2019-06-06] MEDS: PANTOprazole 40 MG TAB PO SCH (05:57)
[2019-06-06] MEDS: TERAZOSIN HCL 5 MG CAP PO SCH (08:21)
[2019-06-06] MEDS: CLOPIDOGREL BISULFATE 75 MG TAB PO SCH (08:21)
[2019-06-06] MEDS: FERROUS SULFATE 325 MG TAB PO SCH ×2 (08:22→17:52)
[2019-06-06] MEDS: LORATADINE 10 MG TAB PO SCH (08:22)
[2019-06-06] MEDS: VITAMIN B COMPLEX TAB PO SCH (08:22)
[2019-06-06] MEDS: FINASTERIDE 5 MG TAB PO SCH (08:22)
[2019-06-06] MEDS: ASPIRIN 81 MG ECTAB PO SCH (08:22)
[2019-06-06] MEDS: LISINOPRIL 5 MG TAB PO SCH (10:07)
--- NOTE | 2019-06-06 11:59 | XRay Report ---
XR chest 1V portable HISTORY: 89 years-old Male wheezing, dementia/delirium, high risk aspiration acute wheezing with dem entia COMPARISON: Chest radiograph 06/02/2018 TECHNIQUE: Portable AP view of the chest FINDINGS: Cardiac silhouette is enlarged, unchanged. Calcified plaque of the thoracic aortic arch. No overt pul monary edema. Linear right perihilar and subsegmental left basilar opacities suggest atelectasis. Unc hanged moderate hemidiaphragmatic elevation with chronic blunting of left costophrenic angle. No pneu mothorax, large pleural effusion or lobar airspace consolidation. Degenerative changes of the shoulde rs and spine. IMPRESSION: 1. Cardiomegaly without overt pulmonary edema. 2. Linear right perihilar and left basilar opacities suggest atelectasis. 3. Unchanged mild right hemidiaphragmatic elevation. The above report was generated using voice recognition software. It may contain grammatical, syntax o r spelling errors. Electronically signed by: Christ Fernandez M.D. 06/06/2019 11:58 AM
--- NOTE | 2019-06-06 15:09 | Neurology Progress Note ---
Date of Service June 06, 2019 Assessment & Plan (1) Acute CVA (cerebrovascular accident): 1. MRI - no acute findings 2. CTA head and neck - no significant stenosis 3. TTE no ASD 4. CT head- repeated with no hemorrhage 5. continue plavix 75 mg and aspirin 81 mg daily as home dosing 6. optimize HTN, HLD LDL <70 consider patient age 7. PT/OT speech any discharge needs 8. pleasantly confused - ongoing dementia 9 EEG as outpatient 10. CT head- repeat for MS change, also r/o any infectious process 11. code status should be addressed. follow up with Charissa Marrero [facility] neurology 8 weeks after discharge from hospital Supervising Physician Co-Signing Physician Notes I have seen and discussed above patient with Dr Yoan Cruz. Mr Barbosa is an 89 year old male with history of left MCA stroke on dual antiplatelet therapy. He was admitted several days ago due to altered mentation and received IV TPA. MRI brain was Negative for acute stroke. Repeat CT head reviewed and shows old left temporal infarct. I certainly agree that delirium is likely contributing to his increased confusion in the setting of his dementia. - Recommend routine EEG (ordered). - Recommend checking repeat UA (ordered) - Will check TSH, B12, folate (ordered). Darren Corbett is a 89 year old male who lives at [facility] in [place] with a PMH- L MCA infarct in Apr 2018, HTN, HLD, CKD III, dementia who presented as a stroke alert. He was last seen up and walking around around 9:30 then at 11:30 AM, staff found him slumped over in his room staring forward and not speaking with bilateral weakness. Stroke alert was called in route and patient was evaluated by tele-stroke upon arrival, who decided to administer TPA for concern of global infarct. Accord to son who is bedside once the tPa was given he was speaking with some situational confusion. His home medications include plavix and statin for history of left MCA infarct in April 2018. Family notes some residual dysphagia and cognitive slowing since that time but patient still able to ambulate independently. He is currently pleasantly confused. Nursing states he was up walking a few steps with PT today but then was very somnolent after the walk. Physical Exam Physical Exam: gen: alert to voice command lungs course breath sounds CV RRR move all extremities spontaneously squeezes with hands pulls but will not push does not know where he is or what year it is Results & Data Vital Signs (Past 12 Hours) Vital Signs Temp Pulse Resp BP Pulse Ox 06/06/19 12:34 95 06/06/19 12:05 36.3 C L 73 23 131/53 L 95 06/06/19 07:58 36.9 C 76 24 155/63 H 95 Laboratory Results no new labs Diagnostic Findings CXR-Cardiomegaly without overt pulmonary edema. Linear right perihilar and left basilar opacities suggest atelectasis. Unchanged mild right hemidiaphragmatic elevation.
--- NOTE | 2019-06-06 15:47 | CT Scan Report ---
CT head/brain wo con CLINICAL HISTORY: Change in mental status. Delirium. Recent stroke. History of TPA. COMPARISON STUDY: 06/03/2019 TECHNIQUE: Axial CT of the brain is performed from the vertex to the skull base. IV contrast was not administered for this examination. A dose lowering technique was utilized adhering to the principles of ALARA. CT DOSE: 638.56 mGycm FINDINGS: An old left temporal lobe infarct is again visualized. There is no CT evidence of acute cortical infa rction. There is no midline shift. There is no acute hemorrhage. There is stable prominence of the ex tra-axial space in the frontal regions. No calvarial fractures are visualized. There are patchy white matter hypodensities likely on a small vessel basis. There is no evidence of pathologic ventricular dilatation. There is no evidence of acute sinusitis IMPRESSION: No acute intracranial findings. Old left temporal lobe infarct. No evidence of acute hemo rrhage. Electronically signed by: Wesley Dinh M.D. 06/06/2019 3:45 PM
[2019-06-06] MEDS: ALBUT/IPRATROP 3MG/0.5MG NEB 3 ML VIAL NEB SCH ×2 (15:59→18:56)
[2019-06-06] MEDS: D5W AND NSS 1,000 ML IV SCH ×2 (16:41→23:36)
[2019-06-06 17:04] LABS: Appearance Urine Clear (Clear); Bilirubin Urine Negative (Negative); Blood Urine Negative (Negative); Color Urine Yellow; Glucose Urine UA Negative (Negative); Ketones Urine Negative (Negative); Leukocyte Esterase Urine Negative (Negative); Nitrite Urine Negative (Negative); Protein Urine Negative (Negative); Specific Gravity Urine 1.013 (1.000-1.030); Urobilinogen Urine Negative (Negative)
[2019-06-06 17:52] LABS: Vitamin B12 628 pg/ml (211-911)
[2019-06-06 17:53] LABS: Folate (Folic Acid) > 24.00 ng/ml (>5.38)
[2019-06-06 17:57] LABS: Thyroid Stimulating Hormone 10.3 uIu/ml (0.300-4.500)
[2019-06-06 18:10] LABS: T4 Free Thyroxine 1.02 ng/dl (0.8-1.6)
--- NOTE | 2019-06-06 18:42 | Hospitalist Progress Note ---
Date of Service June 06, 2019 Assessment & Plan (1) Dementia: Delirium likely related to hospitalization. Cont to support. (2) Stroke: s/p TPA with resolution of symptoms, initially. Now with delirium. Cont to monitor closely and ensure no reversible causes. Appreciate Neuro reassessment of him and any recommendations Neuro requests outpatient EEG and 8 week follow-up. To SNF when clinically stable. (3) Hypertension: Lisinopril per home regimen. (4) Hyperlipidemia: Continue statin (5) Iron deficiency anemia: started iron supplements this admission, PCP to follow-up and further investigate based on family wishes/need (6) CKD (chronic kidney disease), stage III: Kidney function at baseline (baseline Cr~ 1.6-1.8) -Monitor with daily BMP (7) BPH (benign prostatic hyperplasia): Finasteride, Terazosin per home regimen. (8) DVT prophylaxis: Heparin Full Code Dispo-to SNF when medically stable and delirium improved. Andreia Jewell DO [facility] Hospitalist Subjective delirium present, unable to communicate with patient as a result Review of Systems Review of Systems: Unobtainable due to mental health condition Physical Exam Physical Exam: CONSTITUTIONAL: WNWD, vitals as above, generally somnolent and delirious EYES: pupils are equal bilaterally, normal conjunctivae, no scleral icterus ENT: MMM RESPIRATORY: clear to auscultation bilaterally, no crackles, rales or wheezes, normal respiratory effort CARDIOVASCULAR: regular rate and rhythm, 3/6 TONIO heard, no gallops or rubs, no JVD, no peripheral edema GASTROINTESTINAL: normal bowel sounds, soft, nontender, nondistended MUSCULOSKELETAL: unable to obtain as patient uncooperative with exam SKIN: warm and dry NEUROLOGIC: unable to obtain as patient uncooperative with exam PSYCHIATRIC: sleeping but easily arousable to voice. Cannot orient, speaks using unintelligible words. Results & Data Vital Signs (Past 12 Hours) Vital Signs Temp Pulse Resp BP BP Pulse Ox 06/06/19 15:30 37.5 C 88 24 148/71 H 94 06/06/19 12:34 95 06/06/19 12:05 36.3 C L 73 23 131/53 L 95 06/06/19 07:58 36.9 C 76 24 155/63 H 95 Laboratory Results Urine 06/06/19 Range/Units 16:15 Urine Color Yellow Urine Appearance Clear (Clear) Urine pH 5.0 (4.5-7.5) Ur Specific [place] 1.013 (1.000-1.030) Urine Protein Negative (Negative) Urine Glucose (UA) Negative (Negative) Medications Administered Current Inpatient Medications Albuterol (Duoneb) 3 ml NEB QIDR [facility] Stop: 07/06/19 14:59 Last Admin: 06/06/19 15:59 Dose: Not Given Documented by: Aspirin (Ecotrin Ectab) 81 mg PO QAM [facility] Stop: 07/03/19 13:59 Last Admin: 06/06/19 08:22 Dose: 81 mg Documented by: Atorvastatin Calcium (Lipitor) 40 mg PO HS [facility] Stop: 07/03/19 20:59 Last Admin: 06/05/19 20:53 Dose: 40 mg Documented by: Clopidogrel Bisulfate (Plavix) 75 mg PO QAM [facility] Stop: 07/03/19 13:59 Last Admin: 06/06/19 08:21 Dose: 75 mg Documented by: Ferrous Sulfate (Feosol) 325 mg PO BIDM [facility] Stop: 07/04/19 16:59 Last Admin: 06/06/19 17:52 Dose: 325 mg Documented by: Finasteride (Proscar) 5 mg PO DAILY [facility] Stop: 07/04/19 08:59 Last Admin: 06/06/19 08:22 Dose: 5 mg Documented by: Gadobutrol (Gadavist 65ml) 10 ml IV ONCE PRN PRN Reason: Interaction Checking Stop: 06/06/19 21:09 Last Admin: 06/02/19 21:12 Dose: 10 ml Documented by: Heparin Sodium (Porcine) (Heparin Sodium (Porcine)) 5,000 units SQ Q8 [facility] Stop: 07/04/19 21:59 Last Admin: 06/06/19 13:15 Dose: 5,000 units Documented by: Dextrose/Sodium Chloride (D5w And Nss) 1,000 mls @ 125 mls/hr IV .Q8H [facility] Stop: 07/06/19 15:29 Last Admin: 06/06/19 16:41 Dose: 125 mls/hr Documented by: Lisinopril (Zestril) 5 mg PO DAILY [facility] Stop: 07/06/19 09:59 Last Admin: 06/06/19 10:07 Dose: 5 mg Documented by: Loratadine (Claritin) 10 mg PO DAILY [facility] Stop: 07/04/19 08:59 Last Admin: 06/06/19 08:22 Dose: 10 mg Documented by: Miscellaneous Information (Pharmacist Discharge Med Rec Consult) 1 ea N/A UD PRN PRN Reason: Consult Stop: 07/02/19 17:35 Pantoprazole Sodium (Protonix) 40 mg PO DAILYBB [facility] Stop: 07/04/19 06:29 Last Admin: 06/06/19 05:57 Dose: 40 mg Documented by: Terazosin HCl (Hytrin) 10 mg PO DAILY [facility] Stop: 07/04/19 08:59 Last Admin: 06/06/19 08:21 Dose: 10 mg Documented by: Vitamin B Complex (Vitamin B Complex) 1 tab PO DAILY [facility] Stop: 07/04/19 08:59 Last Admin: 06/06/19 08:22 Dose: 1 tab Documented by:
[2019-06-06] MEDS: ATORVASTATIN 40 MG TAB PO SCH (20:20)
[2019-06-07] MEDS: HEPARIN SOD 5,000 UNIT/0.5 ML VIAL SQ SCH ×3 (05:41→20:59)
[2019-06-07] MEDS ORDERED: XOPENEX/ATROVENT 1.25mg/0.5MG NEB COMBO NEB STA (05:43)
[2019-06-07] MEDS: PANTOprazole 40 MG TAB PO SCH (05:44)
[2019-06-07] MEDS ORDERED: LEVALBUTEROL 1.25MG/0.5ML NEB INH STA (05:52)
[2019-06-07] MEDS ORDERED: IPRATROPIUM BROMIDE NEB SOLN 0.02% 2.5 ML VIAL INH STA (05:52)
--- NOTE | 2019-06-07 06:35 | XRay Report ---
XR chest 1V portable CLINICAL HISTORY: wheeze COMPARISON STUDY: None 1419 FINDINGS: The heart is enlarged. There is mild elevation of the right hemidiaphragm. There is mild in terstitial thickening similar to the prior study. There is no focal pulmonary consolidation. There ar e no pleural effusions.[ IMPRESSION: Stable mild cardiomegaly with mild elevation of the right hemidiaphragm. No acute finding s Electronically signed by: Wesley Dinh M.D. 06/07/2019 6:34 AM
[2019-06-07 06:45] LABS: Hematocrit (blood only) 26.2 % (42-52); Hemoglobin 8.2 g/dL (14.0-18.0); Mean Corpuscular Hemoglobin 27.2 pg (25-34); Mean Corpuscular Hgb Conc 31.3 g/dL (32-36); Mean Corpuscular Volume 86.8 fL (80-100); Mean Platelet Volume 9.9 fL (7.4-10.4); Platelet Count 240 K/uL (130-400); RDW Coefficient of Variation 16.4 % (11.5-14.5); RDW Standard Deviation 51.7 fL (36.4-46.3); Red Blood Count 3.02 M/uL (4.7-6.1); White Blood Count 7.14 K/uL (4.8-10.8)
[2019-06-07 07:19] LABS: Alanine Aminotransferase 23 U/L (12-78); Albumin Level 3.1 gm/dl (3.4-5.0); Aspartate Aminotransferase 40 U/L (15-37); BUN Creatinine Ratio 15.3 (10-20); Blood Urea Nitrogen 24 mg/dl (7-18); Calcium 7.9 mg/dl (8.5-10.1); Carbon Dioxide 23 mmol/L (21-32); Chloride 112 mmol/L (98-107); Est GFR (African American) 45.3; Est GFR (Non-African American) 39.1; Glucose 121 mg/dl (70-99); Sodium 142 mmol/L (136-145)
[2019-06-07 07:21] LABS: Albumin Globulin Ratio 0.9 (0.9-2); Alkaline Phosphatase 64 U/L (45-117); Bilirubin,Total 0.6 mg/dl (0.2-1); Globulin 3.6 gm/dl (2.5-4.0); Total Protein 6.7 gm/dl (6.4-8.2)
[2019-06-07] MEDS: ALBUT/IPRATROP 3MG/0.5MG NEB 3 ML VIAL NEB SCH ×4 (07:40→21:01)
[2019-06-07] MEDS: LORATADINE 10 MG TAB PO SCH (07:52)
[2019-06-07] MEDS: ASPIRIN 81 MG ECTAB PO SCH (07:52)
[2019-06-07] MEDS: TERAZOSIN HCL 5 MG CAP PO SCH (07:52)
[2019-06-07] MEDS: CLOPIDOGREL BISULFATE 75 MG TAB PO SCH (07:52)
[2019-06-07] MEDS: FERROUS SULFATE 325 MG TAB PO SCH ×2 (07:52→17:29)
[2019-06-07] MEDS: LISINOPRIL 5 MG TAB PO SCH (07:53)
[2019-06-07] MEDS: FINASTERIDE 5 MG TAB PO SCH (07:53)
[2019-06-07] MEDS: VITAMIN B COMPLEX TAB PO SCH (07:53)
--- NOTE | 2019-06-07 13:39 | Hospitalist Progress Note ---
Date of Service June 07, 2019 Assessment & Plan (1) Dementia: Resolved delirium, still fatigued and deconditioned but more to mental baseline today. (2) Stroke: s/p TPA with resolution of symptoms, doing better today with resolution of delirium. I called son to update him. No overt infection or other reversible cause present. Cont DAPT and statin. Neuro requests outpatient EEG and 8 week follow-up. To SNF when avail. (3) Hypertension: at goal on lisinopril (4) Hyperlipidemia: Continue statin (5) Iron deficiency anemia: started iron supplements this admission, PCP to follow-up and further investigate based on family wishes/need (6) CKD (chronic kidney disease), stage III: Kidney function at baseline (baseline Cr~ 1.6-1.8) -Monitor with daily BMP (7) BPH (benign prostatic hyperplasia): Finasteride, Terazosin per home regimen (8) DVT prophylaxis: Heparin Full Code Dispo-to SNF when bed available, likely tomorrow. Updated family on plan and changes in mental status. Andreia Jewell DO [facility] Hospitalist Subjective Delirium has resolved. He is able to eat with assistance, no difficulty with swallowing. Wheezing from yesterday as resolved. CXR revealed no evidence of pneumonia or volume overload. IVF were stoped overnight, however, will not restart as patient is able to drink without issue when prompted and is frequently assisted by nursing staff. Review of Systems Review of Systems: All systems reviewed & are unremarkable except as noted in HPI & below Physical Exam Physical Exam: CONSTITUTIONAL: WNWD, vitals as above, generally somnolent but able to speak normally without speech issues. EYES: pt declines to open eyes for pupil evaluation, normal conjunctivae, no scleral icterus ENT: MMM RESPIRATORY: clear to auscultation bilaterally, no crackles, rales or wheezes, normal respiratory effort CARDIOVASCULAR: regular rate and rhythm, 3/6 TONIO heard, no gallops or rubs, no JVD, no peripheral edema GASTROINTESTINAL: normal bowel sounds, soft, nontender, nondistended MUSCULOSKELETAL: unable to obtain as patient uncooperative with exam, appears to be moving extremities equally SKIN: warm and dry NEUROLOGIC: unable to obtain as patient uncooperative with exam PSYCHIATRIC: somnolent, but easily arousable to voice. Results & Data Vital Signs (Past 12 Hours) Vital Signs Temp Pulse Pulse Resp BP Pulse Ox 06/07/19 10:59 77 19 93 06/07/19 08:06 37.2 C 89 18 130/77 95 06/07/19 05:57 68 18 95 Laboratory Results Short CBC 06/07/19 Range/Units 06:34 WBC 7.14 (4.8-10.8) K/uL Hgb 8.2 L (14.0-18.0) g/dL Hct 26.2 L (42-52) % Plt Count 240 (130-400) K/uL BMP 06/07/19 06:34 Sodium 142 Potassium 4.0 Chloride 112 H Carbon Dioxide 23 BUN 24 H Creatinine 1.57 H Glucose 121 H Calcium 7.9 L Liver Function 06/07/19 Range/Units 06:34 Total Bilirubin 0.6 (0.2-1) mg/dl AST 40 H (15-37) U/L ALT 23 (12-78) U/L Alkaline Phosphatase 64 (45-117) U/L Albumin 3.1 L (3.4-5.0) gm/dl Urine 06/06/19 Range/Units 16:15 Urine Color Yellow Urine Appearance Clear (Clear) Urine pH 5.0 (4.5-7.5) Ur Specific [place] 1.013 (1.000-1.030) Urine Protein Negative (Negative) Urine Glucose (UA) Negative (Negative) Medications Administered Current Inpatient Medications Albuterol (Duoneb) 3 ml NEB QIDR [facility] Stop: 07/06/19 14:59 Last Admin: 06/07/19 10:59 Dose: 3 ml Documented by: Aspir[facility] ([facility]) [facility] [place] Stop: 07/03/19 13:59 Last Admin: 06/07/19 07:52 Dose: 81 mg Documented by: Atorvastatin Calcium (Lipitor) 40 mg PO [facility] Stop: 07/03/19 20:59 Last Admin: 06/06/19 20:20 Dose: 40 mg Documented by: Clopidogrel [facility]ate (Plavix) [facility] [place] Stop: 07/03/19 13:59 Last Admin: 06/07/19 07:52 Dose: 75 mg Documented by: Ferrous Sulfate (Feosol) [facility] [place] Stop: 07/04/19 16:59 Last Admin: 06/07/19 07:52 Dose: 325 mg Documented by: Finasteride (Proscar) 5 mg PO DAILY [facility] Stop: 07/04/19 08:59 Last Admin: 06/07/19 07:53 Dose: 5 mg Documented by: Heparin Sodium (Porcine) (Heparin Sodium (Porcine)) 5,000 units SQ Q8 [facility] Stop: 07/04/19 21:59 Last Admin: 06/07/19 13:30 Dose: 5,000 units Documented by: Dextrose/Sodium Chloride (D5w And Nss) 1,000 mls @ 125 mls/hr IV .Q8H [facility] Stop: 07/06/19 15:29 Last Infusion: 06/07/19 05:49 Dose: 0 mls/hr Documented by: Lisinopril (Zestril) 5 mg PO DAILY [facility] Stop: 07/06/19 09:59 Last Admin: 06/07/19 07:53 Dose: 5 mg Documented by: Loratadine (Claritin) 10 mg PO DAILY [facility] Stop: 07/04/19 08:59 Last Admin: 06/07/19 07:52 Dose: 10 mg Documented by: Miscellaneous Information (Pharmacist Discharge Med Rec Consult) 1 ea N/A UD PRN PRN Reason: Consult Stop: 07/02/19 17:35 Pantoprazole Sodium (Protonix) 40 mg PO DAILYBB [facility] Stop: 07/04/19 06:29 Last Admin: 06/07/19 05:44 Dose: 40 mg Documented by: Terazosin HCl (Hytrin) 10 mg PO DAILY [facility] Stop: 07/04/19 08:59 Last Admin: 06/07/19 07:52 Dose: 10 mg Documented by: Vitamin B Complex (Vitamin B Complex) 1 tab PO DAILY [facility] Stop: 07/04/19 08:59 Last Admin: 06/07/19 07:53 Dose: 1 tab Documented by:
--- NOTE | 2019-06-07 15:48 | Electroencephalogram ---
EEG Procedure Note Date of Service June 07, 2019 Start / End Times Start Time: 09:06 End Time: 09:[address] Yoan Cruz History A 89 year old male with dementia and increased confusion. EEG performed for evaluation of epileptiform activity. Home Medication List Home Medications Medication Instructions Recorded Confirmed Type aspirin [Aspirin Low Dose] 81 mg PO QAM 05/15/18 06/02/19 History finasteride 5 mg PO DAILY 05/15/18 06/02/19 History lisinopril 5 mg PO DAILY 05/15/18 06/02/19 History loratadine 10 mg PO DAILY 05/15/18 06/02/19 History pantoprazole 40 mg PO DAILYBB 05/15/18 06/02/19 History terazosin 10 mg PO DAILY 05/15/18 06/02/19 History vitamin B complex [B Complex 1] 1 tab PO DAILY 05/15/18 06/02/19 History clopidogrel 75 mg PO QAM #90 tab 05/18/18 06/02/19 Rx acetaminophen [Tylenol] 650 mg PO Q6H PRN 11/12/18 06/02/19 History atorvastatin [Lipitor] 40 mg PO QAM 11/12/18 06/02/19 History dextromethorphan-guaifenesin 5 ml PO Q4 PRN 11/12/18 06/02/19 History [Tussin DM] triamcinolone acetonide 1 applic TOPICAL BID PRN 06/02/19 06/02/19 History Inpatient Medication List Albuterol (Duoneb) 3 ml NEB QIDR [facility] Stop: 07/06/19 14:59 Last Admin: 06/07/19 10:59 Dose: 3 ml Documented by: [id number] Admin: 06/07/19 07:40 Dose: Not Given Documented by: [id number] Admin: 06/06/19 18:56 Dose: 3 ml Documented by: [id number] Admin: 06/06/19 15:59 Dose: Not Given Documented by: [id number] Aspirin (Ecotrin Ectab) 81 mg PO QAM [facility] Stop: 07/03/19 13:59 Last Admin: 06/07/19 07:52 Dose: 81 mg Documented by: [id number] Admin: 06/06/19 08:22 Dose: 81 mg Documented by: [id number] Admin: 06/05/19 08:56 Dose: 81 mg Documented by: [id number] Admin: 06/04/19 11:04 Dose: 81 mg Documented by: [id number] Admin: 06/03/19 15:14 Dose: 81 mg Documented by: [id number] Atorvastatin Calcium (Lipitor) 40 mg PO HS [facility] Stop: 07/03/19 20:59 Last Admin: 06/06/19 20:20 Dose: 40 mg Documented by: [id number] Admin: 06/05/19 20:53 Dose: 40 mg Documented by: [id number] Admin: 06/04/19 21:22 Dose: 40 mg Documented by: [id number] Admin: 06/03/19 20:39 Dose: 40 mg Documented by: [id number] Clopidogrel Bisulfate (Plavix) 75 mg PO QAM [facility] Stop: 07/03/19 13:59 Last Admin: 06/07/19 07:52 Dose: 75 mg Documented by: [id number] Admin: 06/06/19 08:21 Dose: 75 mg Documented by: [id number] Admin: 06/05/19 08:56 Dose: 75 mg Documented by: [id number] Admin: 06/04/19 11:05 Dose: 75 mg Documented by: [id number] Admin: 06/03/19 15:14 Dose: 75 mg Documented by: [id number] Ferrous Sulfate (Feosol) 325 mg PO BIDM [facility] Stop: 07/04/19 16:59 Last Admin: 06/07/19 07:52 Dose: 325 mg Documented by: [id number] Admin: 06/06/19 17:52 Dose: 325 mg Documented by: [id number] Admin: 06/06/19 08:22 Dose: 325 mg Documented by: [id number] Admin: 06/05/19 17:40 Dose: 325 mg Documented by: [id number] Admin: 06/05/19 08:56 Dose: 325 mg Documented by: [id number] Admin: 06/04/19 18:43 Dose: 325 mg Documented by: [id number] Finasteride (Proscar) 5 mg PO DAILY [facility] Stop: 07/04/19 08:59 Last Admin: 06/07/19 07:53 Dose: 5 mg Documented by: [id number] Admin: 06/06/19 08:22 Dose: 5 mg Documented by: [id number] Admin: 06/05/19 08:56 Dose: 5 mg Documented by: [id number] Admin: 06/04/19 11:05 Dose: 5 mg Documented by: [id number] Heparin Sodium (Porcine) (Heparin Sodium (Porcine)) 5,000 units SQ Q8 [facility] Stop: 07/04/19 21:59 Last Admin: 06/07/19 13:30 Dose: 5,000 units Documented by: [id number] Cosigned by: [id number] Admin: 06/07/19 05:41 Dose: 5,000 units Documented by: [id number] Cosigned by: [id number] Admin: 06/06/19 21:26 Dose: 5,000 units Documented by: [id number] Cosigned by: [id number] Admin: 06/06/19 13:15 Dose: 5,000 units Documented by: [id number] Cosigned by: [id number] Admin: 06/06/19 05:57 Dose: 5,000 units Documented by: [id number] Cosigned by: [id number] Admin: 06/05/19 20:53 Dose: 5,000 units Documented by: [id number] Cosigned by: [id number] Admin: 06/05/19 13:49 Dose: 5,000 units Documented by: [id number] Cosigned by: [id number] Admin: 06/05/19 05:30 Dose: 5,000 units Documented by: [id number] Cosigned by: [id number] Admin: 06/04/19 21:27 Dose: 5,000 units Documented by: [id number] Cosigned by: [id number] Dextrose/Sodium Chloride (D5w And Nss) 1,000 mls @ 125 mls/hr IV .Q8H [facility] Stop: 07/06/19 15:29 Last Infusion: 06/07/19 05:49 Dose: 0 mls/hr Documented by: [id number] Admin: 06/06/19 23:36 Dose: 125 mls/hr Documented by: [id number] Infusion: 06/06/19 23:30 Dose: 125 mls/hr Documented by: [id number] Admin: 06/06/19 16:41 Dose: 125 mls/hr Documented by: [id number] Lisinopril (Zestril) 5 mg PO DAILY [facility] Stop: 07/06/19 09:59 Last Admin: 06/07/19 07:53 Dose: 5 mg Documented by: [id number] Admin: 06/06/19 10:07 Dose: 5 mg Documented by: [id number] Loratadine (Claritin) 10 mg PO DAILY [facility] Stop: 07/04/19 08:59 Last Admin: 06/07/19 07:52 Dose: 10 mg Documented by: [id number] Admin: 06/06/19 08:22 Dose: 10 mg Documented by: [id number] Admin: 06/05/19 08:56 Dose: 10 mg Documented by: [id number] Admin: 06/04/19 11:04 Dose: 10 mg Documented by: [id number] [facility]opraz[facility]) [facility] Stop: 07/04/19 06:29 Last Admin: 06/07/19 05:44 Dose: 40 mg Documented by: [id number] Admin: 06/06/19 05:57 Dose: 40 mg Documented by: [id number] Admin: 06/05/19 08:56 Dose: 40 mg Documented by: [id number] Admin: 06/04/19 05:30 Dose: 40 mg Documented by: [id number] Terazosin HCl (Hytrin) 10 mg PO DAILY [facility] Stop: 07/04/19 08:59 Last Admin: 06/07/19 07:52 Dose: 10 mg Documented by: [id number] Admin: 06/06/19 08:21 Dose: 10 mg Documented by: [id number] Admin: 06/05/19 08:56 Dose: 10 mg Documented by: [id number] Admin: 06/04/19 11:04 Dose: 10 mg Documented by: [id number] Vitamin B Complex (Vitamin B Complex) 1 tab PO DAILY [facility] Stop: 07/04/19 08:59 Last Admin: 06/07/19 07:53 Dose: 1 tab Documented by: [id number] Admin: 06/06/19 08:22 Dose: 1 tab Documented by: [id number] Admin: 06/05/19 08:56 Dose: 1 tab Documented by: [id number] Admin: 06/04/19 11:05 Dose: 1 tab Documented by: [id number] Discontinued Medications Alteplase, Recombinant (Activase For Stroke) 1 ea IV NOW STA; Protocol Stop: 06/02/19 13:29 Last Admin: 06/02/19 14:36 Dose: Not Given Documented by: [id number] Gadobutrol (Gadavist 65ml) 10 ml IV ONCE PRN PRN Reason: Interaction Checking Stop: 06/06/19 21:09 Last Admin: 06/02/19 21:12 Dose: 10 ml Documented by: [id number] Sodium Chloride (Nss 1000ml) 1,000 mls @ 50 mls/hr IV .Q20H [facility] Stop: 07/02/19 12:59 Last Admin: 06/03/19 11:45 Dose: Not Given Documented by: [id number] Infusion: 06/03/19 11:07 Dose: 0 mls/hr Documented by: [id number] Admin: 06/02/19 13:49 Dose: 50 mls/hr Documented by: [id number] Alteplase, Recombinant 9 mg/ (Syringe) 9 mls @ 9 mls/min IV ONCE ONE Stop: 06/02/19 13:39 Last Admin: 06/02/19 13:37 Dose: 9 mls/min Documented by: [id number] Cosigned by: [id number] Alteplase, Recombinant 81 mg/ (EMPTY BAG) 0.81 mls @ 0.81 mls/hr IV ONCE ONE Stop: 06/02/19 13:40 Last Infusion: 06/02/19 14:43 Dose: 0 mls/hr Documented by: [id number] Cosigned by: [id number] Admin: 06/02/19 13:41 Dose: 0.8 mls/hr Documented by: [id number] Cosigned by: [id number] Magnesium Sulfate/Dextrose (Magnesium Sulfate / D5w) 1 gm in 100 mls @ 100 mls/hr IV Q1H [facility] Stop: 06/02/19 15:44 Last Infusion: 06/02/19 16:28 Dose: 0 mls/hr Documented by: [id number] Admin: 06/02/19 14:43 Dose: 100 mls/hr Documented by: [id number] Infusion: 06/02/19 14:43 Dose: 100 mls/hr Documented by: [id number] Admin: 06/02/19 13:49 Dose: 100 mls/hr Documented by: [id number] Sodium Chloride (Nss 1000ml) 500 mls @ 999 mls/hr IV .Q31M ONE Stop: 06/02/19 14:06 Last Infusion: 06/02/19 14:47 Dose: 0 mls/hr Documented by: [id number] Admin: 06/02/19 13:49 Dose: 999 mls/hr Documented by: [id number] Influenza Virus Vaccine (Fluzone High-Dose Pf) 0.5 ml IM .ONCE ONE Stop: 06/02/19 15:31 Last Admin: 06/06/19 11:30 Dose: 0.5 ml Documented by: [id number] Cosigned by: [id number] Ioversol (Optiray 320 125ml) 119 ml IV ONCE PRN PRN Reason: Interaction Checking Stop: 06/06/19 12:57 Last Admin: 06/02/19 12:59 Dose: 119 ml Documented by: [id number] Ipratropium [place] (Atrovent 0.02% 0.5mg/2.5ml) 0.5 mg INH NOW STA Stop: 06/07/19 05:53 Last Admin: 06/07/19 05:55 Dose: 0.5 mg Documented by: [id number] Levalbuterol HCl (Xopenex 1.25mg/0.5ml Neb) 1.25 mg INH NOW STA Stop: 06/07/19 05:53 Last Admin: 06/07/19 05:55 Dose: 1.25 mg Documented by: [id number] Olanzapine (Zyprexa) 2.5 mg IM Q4H PRN PRN Reason: Anxiety/Agitation Stop: 07/03/19 19:46 Last Admin: 06/05/19 05:10 Dose: 2.5 mg Documented by: [id number] Admin: 06/04/19 21:31 Dose: 2.5 mg Documented by: [id number] Admin: 06/04/19 02:33 Dose: 2.5 mg Documented by: [id number] Admin: 06/03/19 20:52 Dose: 2.5 mg Documented by: [id number] Pneumococcal Polyvalent Vaccine (Pneumovax-23) 25 mcg IM .ONCE ONE Stop: 06/02/19 14:31 Last Admin: 06/06/19 11:33 Dose: 25 mcg Documented by: [id number] Cosigned by: [id number] Description This is a 21 electrode EEG with a single channel dedicated to limited EKG. The electrodes were placed in accordance with the International 10-20 system. REPORT: At the onset of the EEG the patient is awake. The posterior dominant rhythm in not well seen. Instead, the background is symmetric consisting of 5-7 theta activity with intermixed 2-3 Hz generalized delta activity. Drowsiness is characterized by reduced blink rate, increased slowing, and reduced muscle artifact. Photic stimulation is performed and does not illicit any additional abnormalities. No stage II sleep transients are seen. 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 No epileptiform activity is recorded.
[2019-06-07] MEDS ORDERED: ACETAMINOPHEN 325 MG TAB PO PRN (17:32)
[2019-06-07] MEDS: ATORVASTATIN 40 MG TAB PO SCH (21:00)
[2019-06-08] MEDS: PANTOprazole 40 MG TAB PO SCH (06:04)
[2019-06-08] MEDS: HEPARIN SOD 5,000 UNIT/0.5 ML VIAL SQ SCH ×3 (06:04→20:24)
[2019-06-08] MEDS: ALBUT/IPRATROP 3MG/0.5MG NEB 3 ML VIAL NEB SCH ×3 (07:17→15:17)
[2019-06-08] MEDS: LORATADINE 10 MG TAB PO SCH (08:05)
[2019-06-08] MEDS: VITAMIN B COMPLEX TAB PO SCH (08:05)
[2019-06-08] MEDS: FINASTERIDE 5 MG TAB PO SCH (08:05)
[2019-06-08] MEDS: CLOPIDOGREL BISULFATE 75 MG TAB PO SCH (08:05)
[2019-06-08] MEDS: ASPIRIN 81 MG ECTAB PO SCH (08:06)
[2019-06-08] MEDS: FERROUS SULFATE 325 MG TAB PO SCH ×2 (08:06→17:53)
[2019-06-08] MEDS: TERAZOSIN HCL 5 MG CAP PO SCH (08:06)
[2019-06-08] MEDS: LISINOPRIL 5 MG TAB PO SCH (08:06)
--- NOTE | 2019-06-08 16:49 | Hospitalist Progress Note ---
Date of Service June 08, 2019 Assessment & Plan (1) Dementia: Resolved delirium, still fatigued and deconditioned but more to mental baseline today. (2) Stroke: s/p TPA with resolution of symptoms, doing better today with resolution of delirium. Cont DAPT and statin. Neuro requests outpatient EEG and 8 week follow-up. To SNF when avail. (3) Hypertension: at goal on lisinopril (4) Hyperlipidemia: Continue statin (5) Iron deficiency anemia: started iron supplements this admission, PCP to follow-up and further investigate based on family wishes/need (6) CKD (chronic kidney disease), stage III: Kidney function at baseline (baseline Cr~ 1.6-1.8) -Monitor with daily BMP (7) BPH (benign prostatic hyperplasia): Finasteride, Terazosin per home regimen (8) DVT prophylaxis: Heparin Full Code Dispo-to SNF when bed available, likely tomorrow. Andreia Jewell DO [facility] Hospitalist Subjective Back to baseline mental status. Still has progressed dementia and cannot tell me why he is here or where he is but does know his name and he is communicating and able to follow instructions. He denies any pain or other symptoms at this time Review of Systems Review of Systems: All systems reviewed & are unremarkable except as noted in HPI & below Physical Exam Physical Exam: CONSTITUTIONAL: WNWD, vitals as above, well-appearing, sitting up in chair and conversing. EYES: normal conjunctivae, no scleral icterus ENT: MMM RESPIRATORY: clear to auscultation bilaterally, no crackles, rales or wheezes, normal respiratory effort CARDIOVASCULAR: regular rate and rhythm, 3/6 TONIO heard, no gallops or rubs, no JVD, no peripheral edema GASTROINTESTINAL: normal bowel sounds, soft, nontender, nondistended MUSCULOSKELETAL: Moves all extremities equally. Strength intact throughout SKIN: warm and dry NEUROLOGIC: No gross focal deficits. PSYCHIATRIC: Alert and oriented to self only. Results & Data Vital Signs (Past 12 Hours) Vital Signs Temp Pulse Resp BP BP Pulse Ox 06/08/19 15:17 67 16 95 06/08/19 15:15 36.7 C 68 18 122/57 L 95 06/08/19 07:18 67 14 97 06/08/19 07:15 36.8 C 79 20 142/59 H 94 Medications Administered Current Inpatient Medications Acetaminophen (Tylenol) 650 mg PO Q6H PRN PRN Reason: Pain or Fever Stop: 07/07/19 17:31 Last Admin: 06/07/19 18:13 Dose: 650 mg Documented by: Aspirin (Ecotrin Ectab) 81 mg PO QAM [facility] Stop: 07/03/19 13:59 Last Admin: 06/08/19 08:06 Dose: 81 mg Documented by: Atorvastatin Calcium (Lipitor) 40 mg PO HS [facility] Stop: 07/03/19 20:59 Last Admin: 06/07/19 21:00 Dose: 40 mg Documented by: Clopidogrel Bisulfate (Plavix) 75 mg PO QAM [facility] Stop: 07/03/19 13:59 Last Admin: 06/08/19 08:05 Dose: 75 mg Documented by: Ferrous Sulfate (Feosol) 325 mg PO BIDM [facility] Stop: 07/04/19 16:59 Last Admin: 06/08/19 17:53 Dose: 325 mg Documented by: Finasteride (Proscar) 5 mg PO DAILY [facility] Stop: 07/04/19 08:59 Last Admin: 06/08/19 08:05 Dose: 5 mg Documented by: Heparin Sodium (Porcine) (Heparin Sodium (Porcine)) 5,000 units SQ Q8 [facility] Stop: 07/04/19 21:59 Last Admin: 06/08/19 14:23 Dose: 5,000 units Documented by: Lisinopril (Zestril) 5 mg PO DAILY [facility] Stop: 07/06/19 09:59 Last Admin: 06/08/19 08:06 Dose: 5 mg Documented by: Loratadine (Claritin) 10 mg PO DAILY [facility] Stop: 07/04/19 08:59 Last Admin: 06/08/19 08:05 Dose: 10 mg Documented by: Miscellaneous Information (Pharmacist Discharge Med Rec Consult) 1 ea N/A UD PRN PRN Reason: Consult Stop: 07/02/19 17:35 Pantoprazole Sodium (Protonix) 40 mg PO DAILYBB [facility] Stop: 07/04/19 06:29 Last Admin: 06/08/19 06:04 Dose: 40 mg Documented by: Terazosin HCl (Hytrin) 10 mg PO DAILY [facility] Stop: 07/04/19 08:59 Last Admin: 06/08/19 08:06 Dose: 10 mg Documented by: Vitamin B Complex (Vitamin B Complex) 1 tab PO DAILY [facility] Stop: 07/04/19 08:59 Last Admin: 06/08/19 08:05 Dose: 1 tab Documented by:
[2019-06-08] MEDS: ATORVASTATIN 40 MG TAB PO SCH (20:24)
[2019-06-09] MEDS: HEPARIN SOD 5,000 UNIT/0.5 ML VIAL SQ SCH (06:28)
[2019-06-09] MEDS: PANTOprazole 40 MG TAB PO SCH (06:28)
--- NOTE | 2019-06-09 09:18 | Discharge Summary ---
Date of Service June 09, 2019 Admission HPI Per Admitting Provider This is an 89yo M from [facility] with a PMH of L MCA infarct in Apr 2018, HTN, HLD, CKD III, dementia and other problems listed below who present as a stroke alert from [facility]. Patient was last seen up and walking around around 9:30 this morning. Around 11:30 AM, staff found patient slumped over in his room staring forward and not speaking. Seemed to have bilateral weakness at this time. Stroke alert was called in route and patient was evaluated by tele-stroke upon arrival, who decided to administer TPA for concern of global infarct. Other differentials include unwitnessed seizure with postictal state versus encephalopathy. CT head, CTA head/neck without acute abnormality but evidence of old L MCA infarct. During time of evaluation in ED, patient was speaking clearly and was A&Ox 3 with some situational confusion. Denies any lightheadedness, headache, difficulty speaking, chest pain, SOB, weakness or sensory deficits. Is on plavix and statin for history of left MCA infarct in April 2018. Family notes some residual dysphagia and cognitive slowing since that time but patient still able to ambulate independently. Admission Exam Per Admitting Provider General Appearance: WD/WN, vitals as above, NAD, sitting up in bed, pleasant, able to converse Head: normocephalic, atraumatic Eyes: normal inspection, PERRL, conjunctivae normal, anicteric sclerae ENT: hard of hearing, external ear and nose normal, oropharynx normal Neck: trachea midline, no thyromegaly normal visual inspection Respiratory: lungs clear to auscultation, no wheeze, rales, rhonchi. Normal insp/exp effort, no accessory muscle use Cardiovascular: regular rate, rhythm, systolic murmur, normal peripheral pulses, BLE edema (chronic R>L). Vessels: no JVD or carotid bruit Chest: Sternal bruising, otherwise normal inspection of chest Abdomen/GI: normal bowel sounds, soft, nontender, no hepatosplenomegaly Extremities/Musculoskelatal: no cyanosis or clubbing, extremities motor strength 5/5, no sensory deficits Neurologic: PERRL, EOMI, accommodation nl, no face palsy, no dysarthria CN's II-XI intact bilaterally and moves all extremities, did not assess gait Psychiatric: A+Ox3, euthymic affect Skin: no rashes, normal color, warm/dry Principal Diagnosis Stroke status post TPA Delirium Dementia Iron deficiency anemia Discharge Data Allergies Allergy/AdvReac Type Severity Reaction Status Date / Time egg Allergy Verified 06/09/19 08:58 shellfish derived Allergy Verified 06/09/19 08:57 Consultations 06/02/19 13:52 ED Decision to Admit Stat 06/02/19 17:24 Consult Case Management - Discharge Planning Routine Consult Multifold Operator Routine Consult Neurology Routine Ordered Studies 06/02/19 12:49 CT angio head w con Stat CT angio neck with con Stat CT head/brain wo con Stat 06/02/19 17:24 MR brain wo/w con Routine 06/03/19 13:37 CT head/brain wo con DAILY 06/06/19 15:16 CT head/brain wo con Stat Hospital Course (1) Stroke: (2) Dementia: (3) Iron deficiency anemia: 89-year-old man presented from personal alf after unresponsive episode. Stroke alert was called with concern for global infarct therefore TPA was administered he was placed in the ICU. Neurology was consulted and recommended continuing treatment as if he had an acute CVA, however, the MRI was reviewed and revealed no acute infarct. Differential diagnosis includes aborted stroke versus TIA versus decompensation of old CVA. MRI also revealed evidence of chronic left MCA stroke was present. CTA of head and neck were reviewed with no high-grade stenosis. Repeat head CT 24 hours after TPA ministration was negative for hemorrhage. He was continued on aspirin and Plavix as well as a high intensity statin and transferred to the floor. He was continued on telemetry and throughout his entire hospitalization had no evidence of atrial arrhythmias. His blood pressure remained at goal and he remained hemodynamically stable. A routine EEG as outpatient was recommended. An echocardiogram revealed no evidence of ASD. Ejection fraction was 65 to 70% with no left ventricular wall motion abnormalities noted. He subsequently became more delirious on the floor attributed to hospital delirium. Reversible causes were investigated but were not present. Chest x-ray remained clear. Urine was checked and negative. TSH was mildly elevated around 10, but synthroid was not initiated. At time of discharge a [id number] examination was performed revealing hemodynamically stable and afebrile patient who was mentating and ambulating at baseline and tolerating p.o. Physical exam was unremarkable including a chronic 3 out of 6 systolic ejection murmur and clear lungs to auscultation. He was discharged in stable condition with close primary care follow-up recommended to investigate his iron deficiency anemia further. He was placed on iron supplementation prior to discharge. Total Time Total Time Spent Total Time Spent (In Minutes): 60 Total Time Includes: Examination of the Patient, Discharge Planning, Medication Reconciliation and Communication With Other Providers Discharge Plan Discharge Items Patient Disposition: Transfer Intermediate Fac Reason For Visit: UNRESPONSIVE EPISODE, S/P TPA Discharge Diagnosis: Stroke status post TPA Delirium Dementia Iron deficiency anemia Condition on Discharge: Good Activity: Resume your previous activity Non-emergency contact: Primary Care Provider Call non-emergency contact if: you have any medication questions, your symptoms worsen, your pain is not controlled, your pain is worsening, your pain is unusual for you, your pain is concerning for you and you have a fever Follow-up/Referrals: JARED ALATORRE ADDIE [Primary Care Provider] - Diet: Heart Healthy Diet Texture: Dental soft (bite-sized) Addtl Attending Provider Instructions: Please take all medications as instructed on discharge below. You are being placed on iron supplements secondary to iron deficiency anemia that was seen while hospitalized. Please follow-up with [facility] Neurology in 8 weeks time for follow-up of stroke. It is recommended that you follow-up with your primary care doctor within 1 week of discharge from the hospital to ensure you are still doing well. At this visit he will also need to discuss if any further investigation for iron deficiency anemia is needed. It was a pleasure taking care of you! Please call if you have any questions or problems. You can reach a [facility] Hospitalist on duty at [facility] 24 hours a day by calling [phone]. Take care of yourself. Andreia Jewell, DO [facility] Hospitalist Pending Studies at Discharge: No Stand-Alone Forms: My [facility] Skilled Items Patient informed of condition?: Yes DNR: No Discharge Level of Care: Skilled Communicable Disease: No Discharge Prognosis: Stable Lines: None Urinary Catheter: No Medications and DC Order Prescriptions: New ferrous sulfate 325 mg (65 mg iron) Tablet,Delayed Release (Dr/Ec) 325 mg PO BIDM Qty: 60 RF: 1 Continued pantoprazole 40 mg tablet,delayed release (DR/EC) 40 mg PO DAILYBB RF: 0 vitamin B complex [B Complex 1] Tablet 1 tab PO DAILY RF: 0 lisinopril 5 mg tablet 5 mg PO DAILY RF: 0 terazosin 10 mg capsule 10 mg PO DAILY RF: 0 finasteride 5 mg tablet 5 mg PO DAILY RF: 0 loratadine 10 mg Tablet 10 mg PO DAILY RF: 0 aspirin [Aspirin Low Dose] 81 mg Tablet,Delayed Release (Dr/Ec) 81 mg PO QAM RF: 0 clopidogrel 75 mg Tablet 75 mg PO QAM Qty: 90 RF: 0 atorvastatin [Lipitor] 40 mg tablet 40 mg PO QAM RF: 0 acetaminophen [Tylenol] 325 mg Capsule 650 mg PO Q6H PRN (Reason: Fever Or Pain) RF: 0 dextromethorphan-guaifenesin [Tussin DM] 10-100 mg/5 mL Liquid 5 ml PO Q4 PRN (Reason: Cough) RF: 0 triamcinolone acetonide 0.025 % lotion 1 applic topical BID PRN (Reason: Itching) RF: 0 Discharge Orders: Discharge Order (Routine); Ordered 06/09/19 Ordered By: Andreia Jewell Admission Data Admit Date/Time: 06/02/19 15:01 Attending Provider: Andreia Jewell Admit Provider: Mil Patton Primary Care Provider: JARED ALATORRE [facility] Other Providers: Mil Patton ; Heladio Hanna ; Mil Singh ; Beth Garcia [facility]
[2019-06-09] MEDS: VITAMIN B COMPLEX TAB PO SCH (09:39)
[2019-06-09] MEDS: CLOPIDOGREL BISULFATE 75 MG TAB PO SCH (09:39)
[2019-06-09] MEDS: LORATADINE 10 MG TAB PO SCH (09:39)
[2019-06-09] MEDS: LISINOPRIL 5 MG TAB PO SCH (09:40)
[2019-06-09] MEDS: ASPIRIN 81 MG ECTAB PO SCH (09:40)
[2019-06-09] MEDS: TERAZOSIN HCL 5 MG CAP PO SCH (09:40)
[2019-06-09] MEDS: FINASTERIDE 5 MG TAB PO SCH (09:40)
[2019-06-09] MEDS: FERROUS SULFATE 325 MG TAB PO SCH (09:40)
[2019-06-09] MEDS ORDERED: STROKE PATIENT DISCHARGE STA (09:57)
== END 2019-06-09 13:15 | DRG 62 ==
LOC: ED 12:48 → 1E 15:01 → SUATTDRO 15:01 → 1E 16:05 → 2E 06-03 15:38 → 2N 06-05 13:39

== ENCOUNTER 2019-08-14 09:58 | Inpatient (IN) ==
[2019-08-14] MEDS ORDERED: METOPROLOL TARTRATE 1 MG/ML VIAL IV STA ×2 (10:15→10:29)
[2019-08-14] MEDS ORDERED: SODIUM CHLORIDE 0.9% 500 ML IV ONE (10:15)
[2019-08-14] MEDS ORDERED: PHENYLEPHRINE ONE (10:44)
[2019-08-14] MEDS ORDERED: [UNRECOGNIZED DRUG - OTHER] ONE (10:44)
[2019-08-14 10:46] LABS: INR 1.2 (0.9-1.1); Partial Thromboplastin Ratio 0.9; Partial Thromboplastin Time 23.9 Seconds (21.0-31.0); Prothrombin Time 11.7 Seconds (9.0-12.0)
[2019-08-14] MEDS ORDERED: PHENYLEPHRINE 100MCG/ML 5ML SYR IV ONE (10:47)
[2019-08-14 11:00] LABS: Albumin Level 2.6 gm/dl (3.4-5.0); Aspartate Aminotransferase 10 U/L (15-37); BUN Creatinine Ratio 15.4 (10-20); Blood Urea Nitrogen 31 mg/dl (7-18); Calcium 7.7 mg/dl (8.5-10.1); Carbon Dioxide 24 mmol/L (21-32); Chloride 113 mmol/L (98-107); Est GFR (African American) 33.8; Est GFR (Non-African American) 29.1; Glucose 223 mg/dl (70-99); Magnesium 1.9 mg/dl (1.8-2.4); Potassium 4.2 mmol/L (3.5-5.1); Sodium 142 mmol/L (136-145)
[2019-08-14 11:04] LABS: Basophils # (auto) 0.03 K/uL (0-0.2); Basophils % (auto) 0.5 %; Eosinophils # (auto) 0.39 K/uL (0-0.5); Eosinophils % (auto) 6.3 %; Immature Granulocytes # (auto) 0.01 K/uL (0.00-0.02); Immature Granulocytes % (auto) 0.2 %; Lymphocytes # (auto) 0.34 K/uL (1.2-3.4); Lymphocytes % (auto) 5.5 %; Mean Corpuscular Volume 90.1 fL (80-100); Mean Platelet Volume 10.5 fL (7.4-10.4); Monocytes # (auto) 0.82 K/uL (0.11-0.59); Monocytes % (auto) 13.2 %; Neutrophils % (auto) 74.3 %; Platelet Count 214 K/uL (130-400); RDW Coefficient of Variation 17.9 % (11.5-14.5); RDW Standard Deviation 59.7 fL (36.4-46.3); Red Blood Count 3.33 M/uL (4.7-6.1); White Blood Count 6.19 K/uL (4.8-10.8)
[2019-08-14 11:05] LABS: Alanine Aminotransferase 13 U/L (12-78); Alkaline Phosphatase 73 U/L (45-117); Bilirubin Direct < 0.1 mg/dl (0-0.2); Bilirubin,Total 0.4 mg/dl (0.2-1); Total Protein 6.6 gm/dl (6.4-8.2); Troponin I < 0.015 ng/ml (0-0.045)
--- NOTE | 2019-08-14 11:39 | XRay Report ---
XR chest 1V portable CLINICAL HISTORY: Tachycardia COMPARISON STUDY: Chest CT November 12, 2018. Chest radiograph June 07, 2019. FINDINGS: Lung volumes are mildly diminished. Mild left basilar opacity favors atelectasis. Cardiomeg rossy is unchanged. There is no evidence for pulmonary edema. No pneumothorax or pleural effusion is no deb. IMPRESSION: 1. No acute findings. 2. Low lung volumes with suspected left basilar atelectasis. ACT 112: Negative or not required by law. Electronically signed by: Elvis Dixon M.D. 08/14/2019 11:37 AM
--- NOTE | 2019-08-14 11:42 | CT Scan Report ---
CT OF THE HEAD WITHOUT CONTRAST CLINICAL HISTORY: fall yesterday, headache COMPARISON STUDY: Head CT June 14, 2019. TECHNIQUE: Helical axial images of the head were obtained without IV contrast. Automated exposure con trol was utilized for the study. A dose lowering technique was utilized adhering to the principles o f ALARA. FINDINGS: No acute intracranial hemorrhage, midline shift or mass effect is present. Ventricular syst em is stable. Basilar cisterns are patent. There are no extra-axial collections. White matter hypoden sities are unchanged and suggest small vessel disease. An old left temporal lobe infarct is again not ed. There are no findings to suggest acute dural sinus thrombosis or acute territorial infarct. There is a small right frontal scalp contusion and laceration. There is no calvarial fracture. An old defe ct within the posterior arch of C1 is noted. This is unchanged. IMPRESSION: 1. No acute intracranial findings. 2. Right frontal scalp/forehead contusion and laceration. No calvarial fracture. ACT 112: Negative or not required by law. Electronically signed by: Elvis Dixon M.D. 08/14/2019 11:41 AM
--- NOTE | 2019-08-14 11:46 | CT Scan Report ---
CT OF THE CERVICAL SPINE WITHOUT CONTRAST CLINICAL HISTORY: fall, head injury COMPARISON STUDY: CTA of the neck June 02, 2019. TECHNIQUE: Helical axial images of the cervical spine were obtained without IV contrast. Sagittal a nd coronal reconstructions were viewed. Automated exposure control was utilized for the study. A do se lowering technique was utilized adhering to the principles of ALARA. FINDINGS: Craniocervical junction is intact. Facet joints are intact. There is no acute fracture with in the cervical spine. Severe multilevel facet arthrosis is noted. There is moderate to severe multil evel disc space narrowing and osteophytosis. There is no prevertebral edema. IMPRESSION: 1. No acute cervical spine fracture or subluxation. 2. Moderate to severe multilevel degenerative changes within the cervical spine. ACT 112: Negative or not required by law. Electronically signed by: Elvis Dixon M.D. 08/14/2019 11:44 AM
[2019-08-14] MEDS ORDERED: SODIUM CHLORIDE 0.9% 1000ML 500 ML IV ONE (11:47)
--- NOTE | 2019-08-14 12:43 | Cardiology Consultation ---
Date of Consultation August 14, 2019 Assessment & Plan (1) Atrial fibrillation with RVR: Hemodynamically he appears to be improving at this point. His heart rates continue to vary up into the 120s and his blood pressure is now 100 systolic. I discussed the pathophysiology along with the treatment options with his family at great lengths. They were also counseled on the risks of treatment. I believe the most prudent course of action at this point would be to challenge him with low-dose IV Cardizem drip to see if his pressures do not improve with further heart rate reduction. Further recommendations to follow. I did discuss emergent cardioversion along with the significant risks with the family. Should he become hemodynamically unstable at this point they are not sure if they would like to proceed with cardioversion due to the significant risks. (2) Hypotension: As above (3) Dementia: Significant (4) History of ischemic left MCA stroke: (5) CKD (chronic kidney disease), stage III: (6) DNR (do not resuscitate): I had a lengthy discussion with the family and they are all in agreement that they would not want any heroic measures performed The patient has voiced this desire to them previously as well. History of Present Illness Reason for Consultation: Hemodynamically unstable atrial fibrillation Requesting Physician: Dr. Dash Attending Physician: Dr. Velez History of Present Illness It was my pleasure to see Mr. Barbosa in emergent consultation today August 14, 2019. He is a very pleasant yet significantly demented 89-year-old gentleman who was not previously followed with our cardiology practice. He presented to [facility] emergency department from his assisted living facility with reports of falls and weakness. The patient is unable to provide a history 2 sons and 2 [id number]'s are at the bedside and provide the majority of the history along with chart review. Apparently is reported that he has been weak and falling for the last 2 days and today after a fall he was found to be tachycardic. Upon presentation to [facility] emergency department he was in A. fib in the 150s it was hemodynamically unstable with pressures in the 70s to 80s systolic. He was given a total of 10 mg of IV Lopressor along with 2 L of IV fluids and a very small amount of pheny lephrine for blood pressure support. Currently the patient is unable to voice any complaints but is awake family states that he looks pale otherwise no change from baseline. Patient's previously been seen here at [facility] for CVA x2 most recently MRI negative and diagnosed with a TIA in May 2019. The patient is unstable on his feet at baseline and a recurrent fall risk. Allergies Allergy/AdvReac Type Severity Reaction Status Date / Time No Known Allergies Allergy Unverified 08/14/19 10:27 Home Medications Home Medications Medication Instructions Recorded Confirmed Type aspirin [Aspirin Low Dose] 81 mg PO QAM 05/15/18 08/14/19 History finasteride 5 mg PO QAM 05/15/18 08/14/19 History lisinopril 5 mg PO QAM 05/15/18 08/14/19 History loratadine 10 mg PO QAM 05/15/18 08/14/19 History pantoprazole 40 mg PO QAM 05/15/18 08/14/19 History terazosin 10 mg PO QAM 05/15/18 08/14/19 History clopidogrel 75 mg PO QAM #90 tab 05/18/18 08/14/19 Rx atorvastatin [Lipitor] 40 mg PO QAM 11/12/18 08/14/19 History ferrous sulfate 325 mg PO BIDM #60 tab 06/09/19 08/14/19 Rx vitamin B complex 1 cap PO QAM 08/14/19 08/14/19 History Patient History Medical History Anemia (Chronic) BPH (benign prostatic hyperplasia) (Chronic) CKD (chronic kidney disease), stage III (Chronic) Dementia (Chronic) History of ischemic left MCA stroke (Chronic) Hyperlipidemia (Chronic) Hypertension (Chronic) Surgical History History of hernia surgery (Resolved 2014) History of shoulder surgery (Resolved) Hx of cataract surgery (Resolved 2013) Family History Other Hypertension Social History Preferred Language: Lithuanian Communication Ability: Impaired Regulatory Internship Required: No Beliefs That Will Affect Care: None marital status: Current Living Situation: Assisted Current Living Situation Comment: [facility] current occupational status: retired Other Information That Helps Us Care for You: No Feels Safe at Home: Yes Safety Concerns: Feels Safe At This Time Smoking Status: Former smoker Hx Alcohol Use: No Hx Substance Use: No Review of Systems Review of Systems: Unobtainable due to cognitive status Physical Exam Physical Exam: General: Awake, alert and oriented x 3. No acute distress. HEENT: Normocephalic, atraumatic. Pupils equal, round and reactive to light and accommodation. Extraocular muscles are intact. Anicteric sclera. Moist mucous membranes. Neck: No JVD. No bruit. Cardiovascular: irregularly irregular, 4 out of 6 holosystolic ejection murmur greatest at the left sternal border fifth intercostal space without radiation. Mid-to-late systolic ejection murmur 3 out of 6 with radiation of the bilateral carotids as well. Pulmonary: Clear to auscultation bilaterally. No rales, rhonchi, or wheezing. Abdomen: Bowel sounds x 4, soft. No rebound, guarding or tenderness. No organomegaly. Extremities: No clubbing, cyanosis or edema. +2 pedal pulses bilaterally. Skin: Warm and dry. Results & Data Vital Signs (Past 12 Hours) Vital Signs Temp Pulse Pulse Resp BP BP Pulse Ox 08/14/19 11:45 117 H 20 85/46 L 97 08/14/19 11:42 123 H 21 97 08/14/19 11:41 120 H 20 89/46 L 97 08/14/19 11:40 109 H 20 98 08/14/19 11:39 125 H 23 08/14/19 11:22 99 H 24 94/60 L 08/14/19 11:20 108 H 24 100 08/14/19 11:15 112 H 19 88/71 L 100 08/14/19 11:10 96 H 21 99 08/14/19 11:03 109 H 16 93/47 L 97 08/14/19 11:01 100 H 17 99 08/14/19 11:00 106 H 18 82/50 L 100 08/14/19 10:54 94 H 16 93/48 L 98 08/14/19 10:51 107 H 16 87/50 L 97 08/14/19 10:45 118 H 16 84/40 L 96 08/14/19 10:37 111 H 16 98/56 L 96 08/14/19 10:27 123 H 16 97/52 L 96 08/14/19 10:25 129 H 16 103/59 L 96 08/14/19 10:23 131 H 16 88/65 L 96 08/14/19 10:20 140 H 114/55 L 08/14/19 10:00 36.5 C 126 H 20 94/50 L 98
[2019-08-14] MEDS: dilTIAZem HCL 125 MG in DEXTROSE 5% 100 ML IV SCH ×2 (12:47→22:15)
[2019-08-14 12:53] LABS: Appearance Urine Turbid (Clear); Bacteria Urine Automated 2+ (Negative); Bilirubin Urine Negative (Negative); Blood Urine 2+ (Negative); Color Urine Dark Yellow; Glucose Urine UA Negative (Negative); Ketones Urine Negative (Negative); Leukocyte Esterase Urine 3+ (Negative); Nitrite Urine Negative (Negative); Protein Urine Negative (Negative); Specific Gravity Urine 1.017 (1.000-1.030); Urobilinogen Urine Negative (Negative); WBC Urine Automated >30 /hpf (0-5)
[2019-08-14] MEDS ORDERED: cefTRIAXone SODIUM 2,000 MG/70 ML BAG IV STA (13:00)
[2019-08-14] MEDS ORDERED: ONDANSETRON INJ 2 MG/ML 2 ML VIAL IV PRN (13:03)
[2019-08-14] MEDS ORDERED: POLYETHYLENE (MIRALAX) 17 GM PACK PO PRN (13:03)
[2019-08-14] MEDS ORDERED: ACETAMINOPHEN 325 MG TAB PO PRN (13:03)
[2019-08-14] MEDS ORDERED: GLUCOSE 40% GEL 15 GM TUBE PO PRN (13:16)
[2019-08-14] MEDS ORDERED: CARBOHYDRATES FOR HYPOGLYCEMIA PO PRN (13:16)
[2019-08-14] MEDS ORDERED: GLUCOSE 10 TABS/TUBE PO PRN (13:16)
[2019-08-14] MEDS ORDERED: GLUCAGON FOR INJ 1 MG VIAL SQ PRN (13:16)
[2019-08-14] MEDS ORDERED: DEXTROSE 50% 50 ML SYRINGE IV PRN (13:16)
--- NOTE | 2019-08-14 13:50 | History & Physical Report ---
Date of Service August 14, 2019 Assessment & Plan (1) Atrial fibrillation with RVR: (2) Hypotension: This is an 89-year-old male who has significant past medical history of CVA x2, HTN, HLD, CKD stage III, dementia who presents to ED secondary to fall x2 and elevated heart rate. In ED patient presented with A. fib RVR, heart rates in 140s 150s. He was challenged with IV Lopressor 5 mg x 2. Subsequently patient's blood pressure remained low systolically in the 90s. Emergent cardiology consult was requested by ED provider. It was recommended to start patient on diltiazem drip to see if controlling heart rates would improve hemodynamics. He was afebrile throughout ED evaluation and WBC WNL. Chest x-ray negative for acute cardiopulmonary abnormality. Urinalysis does appear concerning for UTI therefore 2 g IV Rocephin was ordered. Patient does meet SIRS criteria given hemodynamic instability with hypotension and tachycardia, lactate 1.9 Admit to PCU Cardiology consulted -appreciate Dr. Lopez input Cardizem drip ordered -monitor hemodynamics CHADSVASC 5 (age, HTN, Hx of CVA) pt poor residential anticoagulant given advanced dementia will defer to cardiology/neurology repeat echocardiogram (3) Fall: Once hemodynamically stable consult PT OT (4) Abnormal urinalysis: Urinalysis with +3 leukocyte esterase, greater than 30 WBC, +2 bacteria In setting of new onset A. fib with hemodynamic instability and underlying concern for SIRS we will treat until culture returns 2 g IV ceftriaxone daily (5) History of CVA (cerebrovascular accident): History of left MCA CVA in 2018 Presented to ED May/2019 secondary to altered mental status status post TPA Post TPA MRI revealed old left MCA CVA, but no acute CVA Follows [facility] neurology On dual antiplatelet therapy with aspirin and Plavix Consult neurology in setting of new onset A. fib -likely source of previous CVAs will need to discuss with neurology regarding appropriate treatment plan moving forward for stroke prevention (6) CKD (chronic kidney disease), stage III: BUN/creatinine 31 and 2.00 Received 1.5 L IVF in ED in response to hypotension Baseline creatinine 1.8 Monitor renal function (7) Hypertension: Hold lisinopril secondary to hypotension (8) Hyperglycemia: Unknown A1c No prior history of diabetes BSG 223 Obtain A1c Accu-Cheks AC/at bedtime NovoLog sliding scale coverage (9) Diastolic dysfunction: Last echocardiogram 05/2019 revealed EF 65 to 70%, grade 2 diastolic dysfunction, moderate aortic valve sclerosis, trace aortic regurg, moderate tricuspid regurg, pulmonary hypertension present Patient with increased lower extremity edema, per family lower extremity edema has been present and stable for about 1 year Monitor daily weights I's and O's Repeat echocardiogram ordered Cardiology on board (10) Hyperlipidemia: Continue statin (11) Dementia: At baseline mood stable (12) BPH (benign prostatic hyperplasia): Hold finasteride and terazosin for now in setting of hemodynamic instability Resume once more stable (13) Anemia: H&H 9.0 and 30.0 Normocytic normochromic Improved from prior CBC 05/2019 No signs or symptoms of bleeding Continue iron supplement (14) DVT prophylaxis: SCD/TEDS Hold chemical prophylaxis for now until determined if patient anticoagulant candidate Follow-up: PCP Dr. Hou on discharge Patient was seen and examined in collaboration with Dr. Velez, please see addendum History of Present Illness Chief Complaint: Frequent falls x2 days, elevated heart rate. Primary Care Provider: Axel Hou This is an 89-year-old male who has significant past medical history of CVA x2, HTN, HLD, CKD stage III, dementia who presents to ED secondary to fall x2 and elevated heart rate. He resides at [facility]. Both sons and [id number] at bedside. History unobtainable from patient secondary to underlying dementia. According to family he had fall yesterday in which he hit his low back. According to nursing staff he also had fallen this morning. When evaluated by staff at [facility] his heart rate was noted to be significantly elevated in the 140s and 150s, and therefore he was recommended to be seen in ED. According to family members his mental status is at baseline he does not appear to be more confused. He has not had any recent illness and there is been no reported fever, chills, nausea, vomiting, diarrhea. No prior history of atr ial arrhythmias. Of significance patient was hospitalized back in May 2019 secondary to altered mental status. Stroke alert was called and he did receive TPA. He was hospitalized in the ICU and MRI did not reveal any acute stroke. Repeat CT was -24 hours post TPA for hemorrhage. It was felt he returned back to his baseline. According to family prior to the stroke he was able to ambulate with a walker. He has been working with physical therapy and is almost back to baseline with ambulation. In ED patient presented with A. fib RVR, heart rates in 140s 150s. He was challenged with IV Lopressor 5 mg x 2. Subsequently patient's blood pressure remained low systolically in the 90s. Emergent cardiology consult was requested by ED provider. It was recommended to start patient on diltiazem drip to see if controlling heart rates would improve hemodynamics. He was afebrile throughout ED evaluation and WBC WNL. Chest x-ray negative for acute cardiopulmonary abnormality. Urinalysis does appear concerning for UTI therefore 2 g IV Rocephin was ordered. Patient does meet SIRS criteria given hemodynamic instability with hypotension and tachycardia, lactate 1.9 Allergies Allergy/AdvReac Type Severity Reaction Status Date / Time No Known Allergies Allergy Unverified 08/14/19 10:27 Home Medications Home Medications Medication Instructions Recorded Confirmed Type aspirin [Aspirin Low Dose] 81 mg PO QAM 05/15/18 08/14/19 History finasteride 5 mg PO QAM 05/15/18 08/14/19 History lisinopril 5 mg PO QAM 05/15/18 08/14/19 History loratadine 10 mg PO QAM 05/15/18 08/14/19 History pantoprazole 40 mg PO QAM 05/15/18 08/14/19 History terazosin 10 mg PO QAM 05/15/18 08/14/19 History clopidogrel 75 mg PO QAM #90 tab 05/18/18 08/14/19 Rx atorvastatin [Lipitor] 40 mg PO QAM 11/12/18 08/14/19 History ferrous sulfate 325 mg PO BIDM #60 tab 06/09/19 08/14/19 Rx vitamin B complex 1 cap PO QAM 08/14/19 08/14/19 History Past Med/Surg History Medical History Anemia (Chronic) BPH (benign prostatic hyperplasia) (Chronic) CKD (chronic kidney disease), stage III (Chronic) Dementia (Chronic) History of ischemic left MCA stroke (Chronic) Hyperlipidemia (Chronic) Hypertension (Chronic) Surgical History History of hernia surgery (Resolved 2014) History of shoulder surgery (Resolved) Hx of cataract surgery (Resolved 2013) Family History Other Hypertension Social History Preferred Language: Swiss Communication Ability: Impaired Despatching And Receiving Clerk Required: No Beliefs That Will Affect Care: None marital status: Current Living Situation[facility] Current Living Situation Comment: [facility] current occupational status: retired Other Information That Helps Us Care for You: No Feels Safe at Home: Yes Safety Concerns: Feels Safe At This Time Smoking Status: Former smoker Hx Alcohol Use: No Hx Substance Use: No Review of Systems Review of Systems: All systems reviewed & are unremarkable except as noted in HPI & below Physical Exam Physical Exam: Constitutional: Elderly, pleasantly demented male, answers questions but not appropriate, WD/WN, vitals as above, NAD, sitting up in bed Head: Normocephalic, Atraumatic Eyes: PERRL, conjunctivae normal, anicteric sclerae ENMT: external ear and nose normal, oropharynx with dry membranes Neck: trachea midline, no thyromegaly normal visual inspection Respiratory: normal respiratory effort, lungs clear to auscultation, no wheeze, rales, rhonchi. Normal insp/exp effort, no accessory muscle use Cardiovascular: IRR/IRR harsh 3/6 TONIO noted precordially, B/L LE Edema R +3, L +2, no Erythema, warmth, negative Homans sign Vessels: no JVD or carotid bruit Chest: normal inspection of chest Abdomen: normal bowel sounds, soft, nontender, no hepatosplenomegaly Musculoskeletal: no cyanosis or clubbing, extremities motor strength 5/5 Skin: no rashes, warm and dry normal turgor Neurologic: PERRL, EOMI, accommodation nl, no face palsy, no dysarthria CN's II-XI intact bilaterally and moves all extremities Psychiatric: A+O to self only, euthymic affect Lymphatic: no cervical or axillary lymphadenopathy : deferred Results & Data Vital Signs (Past 12 Hours) Vital Signs Temp Pulse Pulse Resp BP BP Pulse Ox 08/14/19 13:17 36.4 C L 113 H 22 100/46 L 97 08/14/19 12:31 120 H 26 H 94 08/14/19 12:30 130 H 22 85/47 L 97 08/14/19 12:20 108 H 20 97 08/14/19 12:15 121 H 21 100/50 L 98 08/14/19 12:10 116 H 21 97 08/14/19 12:01 122 H 24 99 08/14/19 12:00 109 H 26 H 93/48 L 99 08/14/19 11:51 116 H 23 98 08/14/19 11:50 107 H 26 H 84/42 L 98 08/14/19 11:46 120 H 21 96 08/14/19 11:45 117 H 20 85/46 L 97 08/14/19 11:42 123 H 21 97 08/14/19 11:41 120 H 20 89/46 L 97 08/14/19 11:40 109 H 20 98 08/14/19 11:39 125 H 23 08/14/19 11:22 99 H 24 94/60 L 08/14/19 11:20 108 H 24 100 08/14/19 11:15 112 H 19 88/71 L 100 08/14/19 11:10 96 H 21 99 08/14/19 11:03 109 H 16 93/47 L 97 08/14/19 11:01 100 H 17 99 08/14/19 11:00 106 H 18 82/50 L 100 08/14/19 10:54 94 H 16 93/48 L 98 08/14/19 10:51 107 H 16 87/50 L 97 08/14/19 10:45 118 H 16 84/40 L 96 08/14/19 10:37 111 H 16 98/56 L 96 08/14/19 10:27 123 H 16 97/52 L 96 08/14/19 10:25 129 H 16 103/59 L 96 08/14/19 10:23 131 H 16 88/65 L 96 08/14/19 10:20 140 H 114/55 L 08/14/19 10:00 36.5 C 126 H 20 94/50 L 98 Laboratory Results Short CBC 08/14/19 Range/Units 10:25 WBC 6.19 (4.8-10.8) K/uL Hgb 9.0 L (14.0-18.0) g/dL Hct 30.0 L (42-52) % Plt Count 214 (130-400) K/uL BMP 08/14/19 10:25 Sodium 142 Potassium 4.2 Chloride 113 H Carbon Dioxide 24 BUN 31 H Creatinine 2.00 H Glucose 223 H Calcium 7.7 L Cardiac Enzymes 08/14/19 Range/Units 10:25 Troponin I < 0.015 (0-0.045) ng/ml Liver Function 08/14/19 Range/Units 10:25 Total Bilirubin 0.4 (0.2-1) mg/dl Direct Bilirubin < 0.1 (0-0.2) mg/dl AST 10 L (15-37) U/L ALT 13 (12-78) U/L Alkaline Phosphatase 73 (45-117) U/L Albumin 2.6 L (3.4-5.0) gm/dl Urine 08/14/19 Range/Units 12:35 Urine Color Dark Yellow Urine Appearance Turbid A (Clear) Urine pH 5.0 (4.5-7.5) Ur Specific [place] 1.017 (1.000-1.030) Urine Protein Negative (Negative) Urine Glucose (UA) Negative (Negative) Diagnostic Findings CXR: IMPRESSION: 1. No acute findings. 2. Low lung volumes with suspected left basilar atelectasis. Cspine CT: IMPRESSION: 1. No acute cervical spine fracture or subluxation. 2. Moderate to severe multilevel degenerative changes within the cervical spine. Head CT: IMPRESSION: 1. No acute intracranial findings. 2. Right frontal scalp/forehead contusion and laceration. No calvarial fracture. Medications Administered Diltiazem HCl 125 mg/ Dextrose 125 mls @ 10 mls/hr IV .[id number] [facility]; Protocol Stop: 09/13/19 12:29 Last Titration: 08/14/19 13:21 Dose: 10 mg/hr, 10 mls/hr Documented by: [id number] Cosigned by: [id number] Admin: 08/14/19 12:47 Dose: 5 mg/hr, 5 mls/hr Documented by: [id number] Cosigned by: [id number] Discontinued Medications Sodium Chloride (Nss) 500 mls @ 999 mls/hr IV .Q31M ONE Stop: 08/14/19 10:45 Last Infusion: 08/14/19 10:37 Dose: 0 mls/hr Documented by: [id number] Admin: 08/14/19 10:02 Dose: 999 mls/hr Documented by: [id number] Sodium Chloride (Nss 1000ml) 500 mls @ 999 mls/hr IV .Q31M ONE Stop: 08/14/19 12:17 Last Infusion: 08/14/19 12:26 Dose: 0 mls/hr Documented by: [id number] Admin: 08/14/19 11:54 Dose: 999 mls/hr Documented by: [id number] Metoprolol Tartrate (Lopressor) 5 mg IV NOW STA Stop: 08/14/19 10:16 Last Admin: 08/14/19 10:20 Dose: 5 mg Documented by: [id number] Metoprolol Tartrate (Lopressor) 5 mg IV NOW STA Stop: 08/14/19 10:30 Last Admin: 08/14/19 10:37 Dose: 5 mg Documented by: [id number] Phenylephrine HCl (Hector-Synephrine Iv Push Ed Use) Confirm Administered Dose 100 mcg .ROUTE .STK-MED ONE Stop: 08/14/19 10:45 Last Admin: 08/14/19 10:47 Dose: 100 mcg Documented by: [id number] Cosigned by: [id number] ECG Rate (beats per minute): 145 Rhythm: atrial fibrillation Findings: + LAFB and + nonspecific-ST abn Code Status & VTE Plan Code Status DNR VTE Prophylaxis Plan VTE Prophylaxis will be ordered: Yes Supervising Physician Co-Signing Physician Notes Patient is an 89-year-old male with history of CVA, hypertension, CKD, dementia and other problems presents with history of multiple falls, elevated heart rate. History is limited secondary to patient's mental condition. Patient was found to be in A. fib RVR and hypotensive while in ED. Currently he denies any chest pain, shortness of breath, palpitations, nausea, dizziness. Discussed with cardiology, family in detail. Patient was started on Cardizem drip while in ED for rate control. Patient prefers no aggressive measures. Blood work suggestive of MARY KAY. UA suggestive of possible urinary tract infection. Please review HPI for complete details of presentation. On exam patient is obese, no apparent distress, normocephalic, lungs are clear to auscultation, irregularly irregular rhythm,+ systolic murmur, abdomen soft nontender, grossly moves all extremities. Patient is admitted for management of A. fib RVR, MARY KAY, possibly UTI. Started on IV Cardizem as per cardiology recommendations. Continue IV fluids. Hold lisinopril for now. Avoid any nephrotoxic agents as able. Also consulted neurology for recommendations on anticoagulation. Appreciate cardiology input. Agree with starting IV Rocephin for possible UTI. Blood cultures obtained. Check A1c to rule out DM. DNI/DNR as per Patient's POA. I personally reviewed the record. Patient is interviewed and examined at bedside. Patient's care is coordinated with Estee Peck PA-C. Please refer to the documentation above for details of patient's presentation and for discussion of other issues.
[2019-08-14] MEDS: cefTRIAXone SODIUM 2,000 MG in DEXTROSE 5% 50 ML IV SCH (13:53)
[2019-08-14] MEDS ORDERED: SODIUM CHLORIDE 0.9% 1000ML 1,000 ML IV SCH (14:00)
--- NOTE | 2019-08-14 15:43 | Emergency Department Note ---
Entered by Andria Garcia acting as a scribe for Arnold Candelario MD ED Provider Note Name: CORI MACHADO Age: 89 Arrives Via: Ambulance Informant: Patient, EMS, Family CC: Tachycardia HPI: 89M arrives for evaluation of hypotension. He was brought to the ED via EMS from [facility] and is accompanied by family. His family states they received a call yesterday that the patient had fallen but did not injure his head and was doing OK. The family denies any history of heart failure or fluid on the lungs. He does not take daily blood thinners and has no history of prior heart attack. He is hypotensive here in the ED. He states he is unsure if he ate breakfast yet this morning. The family notes he did have 2 strokes last year. He was given 500 CC of fluid prior to arrival with improvement of BP in the 80s. ROS: See above HPI for pertinent positives & negatives. A total of 10 systems reviewed and were otherwise negative. Past Medical History:CVA, Hyperlipidemia, dementia, bph, anemia, htn, dlp Past Surgical History:Hernia, Shoulder, cataract Family History:HTN Social History:Lives in [facility], family involved, no etoh, no smoking Home Medications:See Below Allergies:None Vitals:BP 94/50, T 36.5, P 126, R 20, O2 98% RA Physical Exam: GENERAL: Patient is pleasantly mildly demented, in no distress EYES: No scleral icterus, unremarkable pupils. ENT: Mucous membranes moist, no nasal congestion. NECK: No masses appreciated, nomeningismus, trachea is midline. RESPIRATORY: No dyspnea. Mild crackles at the bases. Clear to auscultation and equal bilaterally. No wheeze, no rhonchi. CARDIOVASCULAR: Tachycardic and irregular.No murmurs, rubs, gallops appreciated. GASTROINTESTINAL: Abdomen soft, non-tender, no peritonitis.Bowel sounds positive.No masses appreciated. BACK: No midline tenderness, no CVA tenderness EXTREMITIES: Normal motion all extremities, no cyanosis, edema to bilateral legs, (son states is chronic and unchanged). NEUROLOGIC: Alert and oriented, no acute motor or sensory deficits, no focal weakness, cranial nerves grossly intact. SKIN: No rash, no jaundice, no diaphoresis. GCS 15. ED Course: Prior Medical Record, Triage/Nursing Notes, Medications, Allergies reviewed by Me Vital Signs: reviewed and remarkable for tachy, hypotensive Labs:Reviewed and remarkable for UA concerning UTI Interventions: saline lock, nss bolus (2L total), Lopressor 5mg IV x 2, pheneylephrine 100mcg IV, Rocephin 2 gm IV Imaging:See Below EKG:Per My Interpretation: Indication Palpitations: Afib RVR 145 bpm, qtc 453. No Ischemia. Compared to EKG 06/02/19 afib is new Consults:1141: I discussed the patients case with Estee Peck PA-C, [facility]. The patient will be further evaluated. She is also requesting I speak to Dr. Lopez. 1145: I discussed the patients case with [facility]. The patient will be further evaluated. Reassessments/Times: 1010: The patient was evaluated in room B9. A complete history and physical exam were performed. 1029: Heart rate is in the 110s and BP is 100. Another 5 of Lopressor was ordered. 1101: Nursing informed me the patients pressure is in the 80s. 1045: BP is in the 70s. Heart rate is down to 100. Pharmacist is drawing up 100 mcg of Phenylephrine. 1110: BP is 94/47. His HR is 100 and irregular. He is in no distress. His family notes he did complain of a headache yesterday. I had a prolonged discussion with family who state the patient would not want heroic measures including CPR or intubation, but otherwise are comfortable with aggressive treatment. 1141: I discussed the patients case with Estee Peck PA-C, [facility]. The patient will be further evaluated. She is also requesting I speak to Dr. Lopez. 1145: I discussed the patients case with [facility]. The patient will be further evaluated. 1200: The hospitalist and cardiac team are with the patient. Blood Pressure is in the 90s. Blood pressure:Low Disposition:Remaining in the hospital. Condition: Good Prescriptions:. Differentials:Etiologies such as metabolic, infection, hypo/hyperglycemia, electrolyte abnormalities, cardiac sources, intracerebral event, toxicologic, neurologic, as well as others were entertained. Medical Decision Makin yr old male with PMH CVA, HTN, but no known CAD nor arrythmia arrives with acute weakness over last 48 hours without focal weakness. He did have fall yesterday though no acute trauma by exam. He is in afib with RVR on arrival with hypotension. Dehydrated by exam as well thus fluids ordered along with some Lopressor IV. Further lopressor given as HR improving along with further fluids. Given single dose phenylephrine for transient hypotension to 70s. After this boarder line pressures but MAP ~ 60s so held off on further pressors with a bit more fluids while watching volume status. Labs reveal no trop elevation and EKG without obvious acs at this time. Labs otherwise looking OK. Hospitalist and Cards at bedside with plan to get US. WBC normal and no fever with normal lactate. No lung pathology. UA is concerning for infection thus in setting of hypotenion was given 2 gm IV rocephin though I am not convinced that this is septic shock, but more likely cardiogenic in nature given the afib rvr. Sent to CT as fall yesterday with negative CT head/cervical. Family aware severity of situation and agree with plan. Patient is DNR for cardiac/resp resus but is agreeable to aggressive medical management. Throughout patient patient pleasant, no distress and maintains airway. Impression: Atrial fibrillation with RVR Hypotension Fall Closed head injury. Critical Care Time: I have personally spent greater than 45 minutes of critical care time in the direct management of this patient. Afib RVR with hypotension. This was a life/limb threatening event. This includes time spent evaluating patient, direct bedside care, chart review, placing orders, interpretation of diagnostic studies, discussion with consultants, patient, and family members, as well as other required patient management activities. This 45 minutes is in excess of all separately billable procedures. The scribe's documentation has been prepared under my direction and personally reviewed by me in its entirety. I confirm that the note above accurately refle cts all work, treatment, procedures, and medical decision making performed by me. Arnold Candelario MD Impression & Plan Atrial fibrillation with RVR, Hypotension, Fall, Closed head injury Past Med/Surg History Medical History Anemia (Chronic) BPH (benign prostatic hyperplasia) (Chronic) CKD (chronic kidney disease), stage III (Chronic) Dementia (Chronic) History of ischemic left MCA stroke (Chronic) Hyperlipidemia (Chronic) Hypertension (Chronic) Surgical History History of hernia surgery (Resolved 2014) History of shoulder surgery (Resolved) Hx of cataract surgery (Resolved 2013) Family History Other Hypertension Social History Preferred Language: Gabonese Communication Ability: Impaired Shellfish Sorter Required: No Beliefs That Will Affect Care: None marital status: Current Living Situation: Skilled Nursing [facility] current occupational status: retired Other Information That Helps Us Care for You: No Feels Safe at Home: Yes Safety Concerns: Feels Safe At This Time Smoking Status: Former smoker Hx Alcohol Use: No Hx Substance Use: No Results & Data Vital Signs Vital Signs - 24 hr 08/14/19 10:00 08/14/19 10:20 08/14/19 10:23 Temperature 36.5 C Temperature Source Oral Pulse Rate 126 H 140 H Pulse Rate [Finger] 131 H Pulse Rate from SpO2 Sensor Respiratory Rate 20 16 Respiratory Effort / Characteristics Non-Labored Non-Labored Respiratory Depth Normal Normal Blood Pressure 94/50 L 114/55 L Blood Pressure [Right Arm] 88/65 L Blood Pressure Mean 64 Blood Pressure Mean [Right Arm] 72 Pulse Oximetry 98 96 Oxygen Delivery Method Room Air Room Air Oxygen Flow Rate Sepsis Recent Fever Within 48 Hours No Sepsis Action Taken by Nursing No Action Required 08/14/19 10:25 08/14/19 10:27 08/14/19 10:37 Temperature Temperature Source Pulse Rate Pulse Rate [Finger] 129 H 123 H 111 H Pulse Rate from SpO2 Sensor Respiratory Rate 16 16 16 Respiratory Effort / Characteristics Non-Labored Non-Labored Respiratory Depth Normal Normal Blood Pressure Blood Pressure [Right Arm] 103/59 L 97/52 L 98/56 L Blood Pressure Mean Blood Pressure Mean [Right Arm] 73 67 70 Pulse Oximetry 96 96 96 Oxygen Delivery Method Room Air Oxygen Flow Rate Sepsis Recent Fever Within 48 Hours Sepsis Action Taken by Nursing 08/14/19 10:45 08/14/19 10:51 08/14/19 10:54 Temperature Temperature Source Pulse Rate Pulse Rate [Finger] 118 H 107 H 94 H Pulse Rate from SpO2 Sensor Respiratory Rate 16 16 16 Respiratory Effort / Characteristics Non-Labored Non-Labored Respiratory Depth Normal Normal Blood Pressure Blood Pressure [Right Arm] 84/40 L 87/50 L 93/48 L Blood Pressure Mean Blood Pressure Mean [Right Arm] 54 62 63 Pulse Oximetry 96 97 98 Oxygen Delivery Method Room Air Nasal Cannula Oxygen Flow Rate 2 Sepsis Recent Fever Within 48 Hours Sepsis Action Taken by Nursing 08/14/19 11:00 08/14/19 11:01 08/14/19 11:03 Temperature Temperature Source Pulse Rate 106 H 100 H 109 H Pulse Rate [Finger] Pulse Rate from SpO2 Sensor 101 H 97 H 109 H Respiratory Rate 18 17 16 Respiratory Effort / Characteristics Respiratory Depth Blood Pressure 82/50 L 93/47 L Blood Pressure [Right Arm] Blood Pressure Mean 60 52 Blood Pressure Mean [Right Arm] Pulse Oximetry 100 99 97 Oxygen Delivery Method Nasal Cannula Nasal Cannula Nasal Cannula Oxygen Flow Rate Sepsis Recent Fever Within 48 Hours Sepsis Action Taken by Nursing 08/14/19 11:10 08/14/19 11:15 08/14/19 11:20 Temperature Temperature Source Pulse Rate 96 H 112 H 108 H Pulse Rate [Finger] Pulse Rate from SpO2 Sensor 102 H 111 H 97 H Respiratory Rate 21 19 24 Respiratory Effort / Characteristics Respiratory Depth Blood Pressure 88/71 L Blood Pressure [Right Arm] Blood Pressure Mean 74 Blood Pressure Mean [Right Arm] Pulse Oximetry 99 100 100 Oxygen Delivery Method Nasal Cannula Nasal Cannula Nasal Cannula Oxygen Flow Rate Sepsis Recent Fever Within 48 Hours Sepsis Action Taken by Nursing 08/14/19 11:22 08/14/19 11:39 08/14/19 11:40 Temperature Temperature Source Pulse Rate 99 H 125 H 109 H Pulse Rate [Finger] Pulse Rate from SpO2 Sensor 113 H Respiratory Rate 24 23 20 Respiratory Effort / Characteristics Respiratory Depth Blood Pressure 94/60 L Blood Pressure [Right Arm] Blood Pressure Mean 73 Blood Pressure Mean [Right Arm] Pulse Oximetry 98 Oxygen Delivery Method Nasal Cannula Nasal Cannula Nasal Cannula Oxygen Flow Rate Sepsis Recent Fever Within 48 Hours Sepsis Action Taken by Nursing 08/14/19 11:41 08/14/19 11:42 08/14/19 11:45 Temperature Temperature Source Pulse Rate 120 H 123 H 117 H Pulse Rate [Finger] Pulse Rate from SpO2 Sensor 102 H 122 H 111 H Respiratory Rate 20 21 20 Respiratory Effort / Characteristics Respiratory Depth Blood Pressure 89/46 L 85/46 L Blood Pressure [Right Arm] Blood Pressure Mean 68 50 Blood Pressure Mean [Right Arm] Pulse Oximetry 97 97 97 Oxygen Delivery Method Nasal Cannula Nasal Cannula Oxygen Flow Rate Sepsis Recent Fever Within 48 Hours Sepsis Action Taken by Nursing 08/14/19 11:46 08/14/19 11:50 08/14/19 11:51 Temperature Temperature Source Pulse Rate 120 H 107 H 116 H Pulse Rate [Finger] Pulse Rate from SpO2 Sensor 116 H 112 H 114 H Respiratory Rate 21 26 H 23 Respiratory Effort / Characteristics Respiratory Depth Blood Pressure 84/42 L Blood Pressure [Right Arm] Blood Pressure Mean 49 Blood Pressure Mean [Right Arm] Pulse Oximetry 96 98 98 Oxygen Delivery Method Nasal Cannula Nasal Cannula Nasal Cannula Oxygen Flow Rate 2 2 2 Sepsis Recent Fever Within 48 Hours Sepsis Action Taken by Nursing 08/14/19 12:00 08/14/19 12:01 08/14/19 12:10 Temperature Temperature Source Pulse Rate 109 H 122 H 116 H Pulse Rate [Finger] Pulse Rate from SpO2 Sensor 110 H 117 H 109 H Respiratory Rate 26 H 24 21 Respiratory Effort / Characteristics Respiratory Depth Blood Pressure 93/48 L Blood Pressure [Right Arm] Blood Pressure Mean 68 Blood Pressure Mean [Right Arm] Pulse Oximetry 99 99 97 Oxygen Delivery Method Nasal Cannula Nasal Cannula Nasal Cannula Oxygen Flow Rate 2 2 2 Sepsis Recent Fever Within 48 Hours Sepsis Action Taken by Skilled Nursing Medications Current Medication List: was personally reviewed by me Laboratory Data Attestation: I reviewed the patient's lab results. Result diagrams: 08/14/19 10:25 08/14/19 10:25 Lab Results 08/14/19 08/14/19 08/14/19 Range/Units 10:25 10:25 10:25 WBC 6.19 (4.8-10.8) K/uL RBC 3.33 L (4.7-6.1) M/uL Hgb 9.0 L (14.0-18.0) g/dL Hct 30.0 L (42-52) % MCV 90.1 (80-100) fL MCH 27.0 (25-34) pg MCHC 30.0 L (32-36) g/dL RDW Std Deviation 59.7 H (36.4-46.3) fL RDW Coeff of Octavio 17.9 H (11.5-14.5) % Plt Count 214 (130-400) K/uL MPV 10.5 H (7.4-10.4) fL Immature Gran % (Auto) 0.2 % Neut % (Auto) 74.3 % Lymph % (Auto) 5.5 % [place] % (Auto) 13.2 % Eos % (Auto) 6.3 % Baso % (Auto) 0.5 % Immature Gran # (Auto) 0.01 (0.00-0.02) K/uL Neut # (Auto) 4.60 (1.4-6.5) K/uL Lymph # (Auto) 0.34 L (1.2-3.4) K/uL [place] # (Auto) 0.82 H (0.11-0.59) K/uL Eos # (Auto) 0.39 (0-0.5) K/uL Baso # (Auto) 0.03 (0-0.2) K/uL PT 11.7 (9.0-12.0) Seconds INR 1.2 H (0.9-1.1) APTT 23.9 (21.0-31.0) Seconds PTT Ratio 0.9 Sodium 142 (136-145) mmol/L Potassium 4.2 (3.5-5.1) mmol/L Chloride 113 H (98-107) mmol/L Carbon Dioxide 24 (21-32) mmol/L Anion Gap 5.0 (3-11) BUN 31 H (7-18) mg/dl Creatinine 2.00 H (0.6-1.4) mg/dl Est Cr Clr Drug Dosing Not Reportable Est GFR ( Amer) 33.8 Est GFR (Non-Af Amer) 29.1 BUN/Creatinine Ratio 15.4 (10-20) Glucose 223 H (70-99) mg/dl Calcium 7.7 L (8.5-10.1) mg/dl Magnesium 1.9 (1.8-2.4) mg/dl Total Bilirubin 0.4 (0.2-1) mg/dl Direct Bilirubin < 0.1 (0-0.2) mg/dl AST 10 L (15-37) U/L ALT 13 (12-78) U/L Alkaline Phosphatase 73 (45-117) U/L Troponin I < 0.015 (0-0.045) ng/ml Total Protein 6.6 (6.4-8.2) gm/dl Albumin 2.6 L (3.4-5.0) gm/dl TSH (0.300-4.500) uIu/ml 08/14/19 Range/Units 10:25 WBC (4.8-10.8) K/uL RBC (4.7-6.1) M/uL Hgb (14.0-18.0) g/dL Hct (42-52) % MCV (80-100) fL MCH (25-34) pg MCHC (32-36) g/dL RDW Std Deviation (36.4-46.3) fL RDW Coeff of Octavio (11.5-14.5) % Plt Count (130-400) K/uL MPV (7.4-10.4) fL Immature Gran % (Auto) % Neut % (Auto) % Lymph % (Auto) % [place] % (Auto) % Eos % (Auto) % Baso % (Auto) % Immature Gran # (Auto) (0.00-0.02) K/uL Neut # (Auto) (1.4-6.5) K/uL Lymph # (Auto) (1.2-3.4) K/uL [place] # (Auto) (0.11-0.59) K/uL Eos # (Auto) (0-0.5) K/uL Baso # (Auto) (0-0.2) K/uL PT (9.0-12.0) Seconds INR (0.9-1.1) APTT (21.0-31.0) Seconds PTT Ratio Sodium (136-145) mmol/L Potassium (3.5-5.1) mmol/L Chloride (98-107) mmol/L Carbon Dioxide (21-32) mmol/L Anion Gap (3-11) BUN (7-18) mg/dl Creatinine (0.6-1.4) mg/dl Est Cr Clr Drug Dosing Est GFR ( Amer) Est GFR (Non-Af Amer) BUN/Creatinine Ratio (10-20) Glucose (70-99) mg/dl Calcium (8.5-10.1) mg/dl Magnesium (1.8-2.4) mg/dl Total Bilirubin (0.2-1) mg/dl Direct Bilirubin (0-0.2) mg/dl AST (15-37) U/L ALT (12-78) U/L Alkaline Phosphatase (45-117) U/L Troponin I (0-0.045) ng/ml Total Protein (6.4-8.2) gm/dl Albumin (3.4-5.0) gm/dl TSH 3.050 (0.300-4.500) uIu/ml Administered Medications Ferrous Sulfate (Feosol) 325 mg PO BIDM HYACINTH Stop: 09/13/19 16:59 Last Admin: 08/14/19 17:00 Dose: 325 mg Documented by: [id number] Diltiazem HCl 125 mg/ Dextrose 125 mls @ 10 mls/hr IV .[id number] HYACINTH; Protocol Stop: 09/13/19 12:29 Last Titration: 08/14/19 13:21 Dose: 10 mg/hr, 10 mls/hr Documented by: [id number] Cosigned by: [id number] Admin: 08/14/19 12:47 Dose: 5 mg/hr, 5 mls/hr Documented by: [id number] Cosigned by: [id number] Ceftriaxone Sodium 2,000 mg/ (Dextrose) 70 mls @ 100 mls/hr IV DAILY HYACINTH; Protocol Stop: 08/19/19 13:59 Last Infusion: 08/14/19 14:40 Dose: 0 mls/hr Documented by: [id number] Admin: 08/14/19 13:53 Dose: 100 mls/hr Documented by: [id number] Sodium Chloride (Nss 1000ml) 1,000 mls @ 100 mls/hr IV .Q10H HYACINTH Stop: 08/14/19 23:59 Last Infusion: 08/14/19 14:40 Dose: 100 mls/hr Documented by: [id number] Infusion: 08/14/19 13:57 Dose: 0 mls/hr Documented by: [id number] Admin: 08/14/19 13:57 Dose: 100 mls/hr Documented by: [id number] Insulin Aspart (Novolog Flexpen) 0 units SC ACHS HYACINTH Stop: 09/13/19 16:29 Last Admin: 08/14/19 16:59 Dose: 2 units Documented by: [id number] Cosigned by: [id number] Discontinued Medications Sodium Chloride (Nss) 500 mls @ 999 mls/hr IV .Q31M ONE Stop: 08/14/19 10:45 Last Infusion: 08/14/19 10:37 Dose: 0 mls/hr Documented by: [id number] Admin: 08/14/19 10:02 Dose: 999 mls/hr Documented by: [id number] Sodium Chloride (Nss 1000ml) 500 mls @ 999 mls/hr IV .Q31M ONE Stop: 08/14/19 12:17 Last Infusion: 08/14/19 12:26 Dose: 0 mls/hr Documented by: [id number] Admin: 08/14/19 11:54 Dose: 999 mls/hr Documented by: [id number] Metoprolol Tartrate (Lopressor) 5 mg IV NOW STA Stop: 08/14/19 10:16 Last Admin: 08/14/19 10:20 Dose: 5 mg Documented by: [id number] Metoprolol Tartrate (Lopressor) 5 mg IV NOW STA Stop: 08/14/19 10:30 Last Admin: 08/14/19 10:37 Dose: 5 mg Documented by: [id number] Phenylephrine HCl (Hector-Synephrine Iv Push Ed Use) Confirm Administered Dose 100 mcg .ROUTE .STK-MED ONE Stop: 08/14/19 10:45 Last Admin: 08/14/19 10:47 Dose: 100 mcg Documented by: [id number] Cosigned by: [id number] Phenylephrine HCl (Hector-Synephrine 500mcg/5ml) 100 mcg IV NOW ONE Stop: 08/14/19 10:48 Last Admin: 08/14/19 13:35 Dose: Not Given Documented by: [id number] Imaging Data Radiologist's Impression: Radiology results as stated below per my review and the radiologist's interpretation: XR chest 1V portable CLINICAL HISTORY: Tachycardia COMPARISON STUDY: Chest CT November 12, 2018. Chest radiograph June 07, 2019. FINDINGS: Lung volumes are mildly diminished. Mild left basilar opacity favors atelectasis. Cardiomegaly is unchanged. There is no evidence for pulmonary edema. No pneumothorax or pleural effusion is noted. IMPRESSION: 1. No acute findings. 2. Low lung volumes with suspected left basilar atelectasis. ACT 112: Negative or not required by law. Electronically signed by: Elvis Dixon M.D. 08/14/2019 11:[address] OF THE CERVICAL SPINE WITHOUT CONTRAST CLINICAL HISTORY: fall, head injury COMPARISON STUDY: CTA of the neck June 02, 2019. TECHNIQUE: Helical axial images of the cervical spine were obtained without IV contrast. Sagittal and coronal reconstructions were viewed. Automated exposure control was utilized for the study. A dose lowering technique was utilized adhering to the principles of ALARA. FINDINGS: Craniocervical junction is intact. Facet joints are intact. There is no acute fracture within the cervical spine. Severe multilevel facet arthrosis is noted. There is moderate to severe multilevel disc space narrowing and osteophytosis. There is no prevertebral edema. IMPRESSION: 1. No acute cervical spine fracture or subluxation. 2. Moderate to severe multilevel degenerative changes within the cervical spine. ACT 112: Negative or not required by law. Electronically signed by: Elvis Dixon M.D. 08/14/2019 11:[address] OF THE HEAD WITHOUT CONTRAST CLINICAL HISTORY: fall yesterday, headache COMPARISON STUDY: Head CT June 14, 2019. TECHNIQUE: Helical axial images of the head were obtained without IV contrast. Automated exposure control was utilized for the study. A dose lowering technique was utilized adhering to the principles of ALARA. FINDINGS: No acute intracranial hemorrhage, midline shift or mass effect is present. Ventricular system is stable. Basilar cisterns are patent. There are no extra-axial collections. White matter hypodensities are unchanged and suggest small vessel disease. An old left temporal lobe infarct is again noted. There are no findings to suggest acute dural sinus thrombosis or acute territorial infarct. There is a small right frontal scalp contusion and laceration. There is no calvarial fracture. An old defect within the posterior arch of C1 is noted. This is unchanged. IMPRESSION: 1. No acute intracranial findings. 2. Right frontal scalp/forehead contusion and laceration. No calvarial fracture. ACT 112: Negative or not required by law. Electronically signed by: Elvis Dixon M.D. 08/14/2019 11:41 AM Blood Pressure Blood Pressure Findings: Low blood pressure Head Trauma GCS Score: 14 Discharge Plan Visit Data *Final* Discharge Date/Time: 08/14/19 13:26 Chief Complaint: Cardiac Assessment Stated Complaint: afib ED Provider: Arnold Candelario Discharge Problem: Atrial fibrillation with RVR, Hypotension, Fall, Closed head injury Patient Disposition: Admitted As Inpatient Discharge Instructions Interventions: ED Discharge Assessment Last Done: 08/14/19 13:26 The scribe's documentation has been prepared under my direction and personally reviewed by me in its entirety. I confirm that the note above accurately reflects all work, treatment, procedures, and medical decision making performed by me.
[2019-08-14] MEDS: INSULIN ASPART 100 UNITS/ML 3 ML PEN SC SCH ×2 (16:59→21:48)
[2019-08-14] MEDS: FERROUS SULFATE 325 MG TAB PO SCH (17:00)
[2019-08-14] MEDS: HEPARIN SOD 5,000 UNIT/0.5 ML VIAL SQ SCH (22:15)
[2019-08-15] MEDS: HEPARIN SOD 5,000 UNIT/0.5 ML VIAL SQ SCH ×3 (05:44→21:01)
[2019-08-15 05:52] LABS: Basophils # (auto) 0.01 K/uL (0-0.2); Basophils % (auto) 0.2 %; Eosinophils # (auto) 0.52 K/uL (0-0.5); Eosinophils % (auto) 9.4 %; Hemoglobin 8.9 g/dL (14.0-18.0); Immature Granulocytes # (auto) 0.02 K/uL (0.00-0.02); Immature Granulocytes % (auto) 0.4 %; Lymphocytes # (auto) 0.39 K/uL (1.2-3.4); Lymphocytes % (auto) 7.1 %; Mean Corpuscular Hemoglobin 27.2 pg (25-34); Mean Corpuscular Hgb Conc 30.7 g/dL (32-36); Mean Corpuscular Volume 88.7 fL (80-100); Mean Platelet Volume 10.1 fL (7.4-10.4); Monocytes # (auto) 0.67 K/uL (0.11-0.59); Monocytes % (auto) 12.1 %; Neutrophils # (auto) 3.91 K/uL (1.4-6.5); Neutrophils % (auto) 70.8 %; Platelet Count 227 K/uL (130-400); RDW Coefficient of Variation 18.1 % (11.5-14.5); RDW Standard Deviation 58.9 fL (36.4-46.3); Red Blood Count 3.27 M/uL (4.7-6.1); White Blood Count 5.52 K/uL (4.8-10.8)
[2019-08-15 06:28] LABS: BUN Creatinine Ratio 16.4 (10-20); Blood Urea Nitrogen 33 mg/dl (7-18); Calcium 7.4 mg/dl (8.5-10.1); Carbon Dioxide 23 mmol/L (21-32); Chloride 115 mmol/L (98-107); Est GFR (Non-African American) 28.5; Glucose 102 mg/dl (70-99); Potassium 4.2 mmol/L (3.5-5.1); Sodium 143 mmol/L (136-145)
[2019-08-15 07:18] LABS: Estimated Average Glucose 134 mg/dl; Hemoglobin A1C 6.3 % (4.5-5.6)
[2019-08-15] MEDS: INSULIN ASPART 100 UNITS/ML 3 ML PEN SC SCH ×4 (07:59→20:57)
[2019-08-15] MEDS: FERROUS SULFATE 325 MG TAB PO SCH ×2 (08:01→17:35)
[2019-08-15] MEDS: PANTOprazole 40 MG TAB PO SCH (08:01)
[2019-08-15] MEDS: ATORVASTATIN 40 MG TAB PO SCH (08:01)
[2019-08-15] MEDS: VITAMIN B COMPLEX TAB PO SCH (08:01)
[2019-08-15] MEDS: cefTRIAXone SODIUM 2,000 MG in DEXTROSE 5% 50 ML IV SCH (08:01)
[2019-08-15] MEDS: ASPIRIN 81 MG ECTAB PO SCH (08:01)
[2019-08-15] MEDS: CLOPIDOGREL BISULFATE 75 MG TAB PO SCH (08:01)
[2019-08-15] MEDS: METOPROLOL TARTRATE 25 MG TAB PO SCH ×2 (09:54→21:00)
--- NOTE | 2019-08-15 10:43 | Cardiology Progress Note ---
Date of Service August 15, 2019 Assessment & Plan (1) Atrial fibrillation with RVR: Successful conversion to normal sinus rhythm after the volume was resuscitated and initiated on antibiotics for a significant UTI. We will DC Cardizem drip at this time and start metoprolol tartrate twice daily. Obviously the patient is not a long-term anticoagulation candidate and there is no role for heparin at this time. (2) Hypotension: Secondary to urosepsis Resolved (3) Dementia: Significant (4) History of ischemic left MCA stroke: (5) CKD (chronic kidney disease), stage III: (6) DNR (do not resuscitate): I had a lengthy discussion with the family and they are all in agreement that they would not want any heroic measures performed The patient has voiced this desire to them previously as well. Subjective Patient seen and examined, significantly demented not answering questions appropriately but no acute distress. No events reported overnight by nursing. Telemetry reviewed. Patient converted to normal sinus rhythm overnight and is now in sinus rhythm with frequent PACs. Review of Systems Review of Systems: Unobtainable due to cognitive status Physical Exam Physical Exam: General: Awake. No acute distress. HEENT: Normocephalic, atraumatic. Pupils equal, round and reactive to light and accommodation. Extraocular muscles are intact. Anicteric sclera. Moist mucous membranes. Neck: No JVD. No bruit. Cardiovascular: Regular. Positive S-4. Normal S-1 and S-2. No S-3. 3/6 mid to late systolic ejection murmur, greatest at the right sternal border, second intercostal space with radiation to the bilateral carotids. No rubs. Pulmonary: Clear to auscultation bilaterally. No rales, rhonchi, or wheezing. Abdomen: Bowel sounds x 4, soft. No rebound, guarding or tenderness. No organomegaly. Extremities: No clubbing, cyanosis or edema. +2 pedal pulses bilaterally. Skin: Warm and dry. Results & Data Vital Signs (Past 12 Hours) Vital Signs Temp Pulse Resp BP Pulse Ox 08/15/19 08:00 95 08/15/19 07:41 36.8 C 74 21 107/54 L 97 08/15/19 03:29 36.4 C L 92 H 16 94/55 L 94 08/14/19 23:11 36.7 C 93 H 16 115/68 95
--- NOTE | 2019-08-15 17:44 | Hospitalist Progress Note ---
Date of Service August 15, 2019 Assessment & Plan (1) Atrial fibrillation with RVR: (2) Hypotension: Patient is an 89 yr male with H/O CVA x2, HTN, HLD, CKD stage III, dementia who presents to ED secondary to fall x2 and elevated heart rate. A. fib RVR CXR:No acute findings.Low lung volumes with suspected left basilar atelectasis. Normal TSH Limited ECHO: Small LV chamber size with normal wall motion, EF 60 to 65% IV Cardizem discontinued Converted to sinus rhythm after IV fluids, IV Cardizem Continue metoprolol 12.5 mg BID Not a long-term anticoagulation candidate Appreciate cardiology input Monitor on telemetry (3) Fall: PT/OT eval (4) Abnormal urinalysis: UTI: Urine culture: Gram-negative bacilli Blood culture: Negative to date Continue Rocephin Day #2 (5) History of CVA (cerebrovascular accident): H/O left MCA CVA in 2018 Presented to ED May/2019 secondary to altered mental status status post TPA Post TPA MRI revealed old left MCA CVA, but no acute CVA Follows [facility] neurology Continue aspirin, Plavix, Lipitor (6) CKD (chronic kidney disease), stage III: Baseline creatinine 1.8 Creatinine slightly up secondary to dehydration from UTI Monitor renal function Avoid nephrotoxic agents as able Lisinopril on hold (7) Hypertension: Hold lisinopril secondary to hypotension and MARY KAY (8) Hyperglycemia: Hb A1c:6.3 No prior history of diabetes Accu-Cheks AC/at bedtime NovoLog sliding scale coverage No strict glycemic control secondary to advanced age (9) Diastolic dysfunction: Chronic diastolic heart failure Last echocardiogram 05/2019 revealed EF 65 to 70%, grade 2 diastolic dysfunction, moderate aortic valve sclerosis, trace aortic regurg, moderate tricuspid regurg, pulmonary hypertension present B/L lower extremity edema, per family lower extremity edema has been present and stable for about 1 year Monitor daily weights I's and O's Monitor volume status Not on diuretics at home (10) Hyperlipidemia: Continue statin (11) Dementia: At baseline mood stable (12) BPH (benign prostatic hyperplasia): On finasteride Resume terazosin as able (13) Anemia: Normocytic normochromic Improved from prior CBC 05/2019 No signs or symptoms of bleeding Continue iron supplement Monitor CBC (14) DVT prophylaxis: Heparin SQ Code Status DNI/DNR Disposition Follow-up: PCP Dr. Hou on discharge PT/OT prior to discharge Subjective Patient is seen and examined at bedside Converted to sinus rhythm overnight History not reliable secondary to patient's mental status Denies any chest pain, shortness of breath, dizziness, nausea, abdominal pain Diltiazem drip discontinued Started on metoprolol 12.5 mg twice daily Review of Systems Review of Systems: All systems reviewed & are unremarkable except as noted in HPI & below Physical Exam Physical Exam: Physical Exam: Vitals signs as noted above General Appearance:Moderately built and nourished, no apparent distress, Elderly Head: normocephalic, Atraumatic Eyes: normal inspection, EOMI Neck: supple, Trachea midline Respiratory/Chest: Normal breath sounds, CTA, No accessory muscle use Cardiovascular: S1, S2, + systolic murmur Abdomen/GI:Soft, Non tender, Bowel sounds present Extremities/Musculoskelatal:normal inspection, B/L LE edema Neurologic/Psych: grossly no focal neurological deficits Skin: normal color, warm Results & Data Vital Signs (Past 12 Hours) Vital Signs Temp Pulse Pulse Resp BP BP Pulse Ox 08/15/19 16:00 74 08/15/19 15:20 37.4 C 80 20 122/73 94 08/15/19 11:29 37.0 C 70 20 102/57 L 94 08/15/19 08:00 95 08/15/19 07:41 36.8 C 74 21 107/54 L 97 Laboratory Results Short CBC 08/15/19 Range/Units 05:39 WBC 5.52 (4.8-10.8) K/uL Hgb 8.9 L (14.0-18.0) g/dL Hct 29.0 L (42-52) % Plt Count 227 (130-400) K/uL BMP 08/15/19 05:39 Sodium 143 Potassium 4.2 Chloride 115 H Carbon Dioxide 23 BUN 33 H Creatinine 2.04 H Glucose 102 H Calcium 7.4 L
[2019-08-16] MEDS: HEPARIN SOD 5,000 UNIT/0.5 ML VIAL SQ SCH ×3 (05:31→20:33)
[2019-08-16 06:01] LABS: Hematocrit (blood only) 29.6 % (42-52); Hemoglobin 8.9 g/dL (14.0-18.0)
[2019-08-16 06:32] LABS: BUN Creatinine Ratio 17.4 (10-20); Blood Urea Nitrogen 31 mg/dl (7-18); Calcium 8.1 mg/dl (8.5-10.1); Carbon Dioxide 23 mmol/L (21-32); Chloride 114 mmol/L (98-107); Est GFR (African American) 38.4; Est GFR (Non-African American) 33.1; Glucose 95 mg/dl (70-99); Potassium 4.2 mmol/L (3.5-5.1); Sodium 142 mmol/L (136-145)
[2019-08-16] MEDS: INSULIN ASPART 100 UNITS/ML 3 ML PEN SC SCH ×4 (07:46→20:34)
[2019-08-16] MEDS: FINASTERIDE 5 MG TAB PO SCH (07:48)
[2019-08-16] MEDS: FERROUS SULFATE 325 MG TAB PO SCH ×2 (07:48→17:04)
[2019-08-16] MEDS: VITAMIN B COMPLEX TAB PO SCH (07:48)
[2019-08-16] MEDS: CLOPIDOGREL BISULFATE 75 MG TAB PO SCH (07:48)
[2019-08-16] MEDS: ATORVASTATIN 40 MG TAB PO SCH (07:48)
[2019-08-16] MEDS: METOPROLOL TARTRATE 25 MG TAB PO SCH ×2 (07:48→20:33)
[2019-08-16] MEDS: ASPIRIN 81 MG ECTAB PO SCH (07:48)
[2019-08-16] MEDS: PANTOprazole 40 MG TAB PO SCH (07:48)
[2019-08-16] MEDS: cefTRIAXone SODIUM 2,000 MG in DEXTROSE 5% 50 ML IV SCH (08:25)
--- NOTE | 2019-08-16 10:41 | Cardiology Progress Note ---
Date of Service August 16, 2019 Assessment & Plan (1) Atrial fibrillation with RVR: Successful conversion to normal sinus rhythm after the volume was resuscitated and initiated on antibiotics for a significant UTI. Tolerating the metoprolol that I have initiated Obviously the patient is not a long-term anticoagulation candidate and there is no role for heparin at this time. Okay to DC telemetry or to group home from a cardiac standpoint. (2) Hypotension: Secondary to urosepsis Resolved (3) Dementia: Significant (4) History of ischemic left MCA stroke: (5) CKD (chronic kidney disease), stage III: (6) DNR (do not resuscitate): I had a lengthy discussion with the family and they are all in agreement that they would not want any heroic measures performed The patient has voiced this desire to them previously as well. Subjective Patient seen and examined with son at bedside. The patient remains sig nificantly confused and his son believes is worsened while he has been admitted. He has not verbalized any complaints of chest pain, shortness of breath, palpitations, lightheadedness, dizziness or syncope. Telemetry reviewed: Normal sinus rhythm with frequent PACs. Review of Systems Review of Systems: All systems reviewed & are unremarkable except as noted in HPI & below Physical Exam Physical Exam: General: Awake, alert and oriented x 3. No acute distress. HEENT: Normocephalic, atraumatic. Pupils equal, round and reactive to light and accommodation. Extraocular muscles are intact. Anicteric sclera. Moist mucous membranes. Neck: No JVD. No bruit. Cardiovascular: irregularly irregular, unable to appreciate murmur, rub or gallop. Pulmonary: Clear to auscultation bilaterally. No rales, rhonchi, or wheezing. Abdomen: Bowel sounds x 4, soft. No rebound, guarding or tenderness. No organomegaly. Extremities: No clubbing, cyanosis or edema. +2 pedal pulses bilaterally. Skin: Warm and dry. Results & Data Vital Signs (Past 12 Hours) Vital Signs Temp Pulse Pulse Resp BP Pulse Ox 08/16/19 08:00 36.5 C 69 62 18 124/68 99 08/16/19 03:52 36.8 C 62 18 120/73 95 08/16/19 00:15 69 08/15/19 23:37 37.2 C 62 19 133/64 95
--- NOTE | 2019-08-16 14:27 | Hospitalist Progress Note ---
Date of Service August 16, 2019 Assessment & Plan (1) Atrial fibrillation with RVR: (2) Hypotension: Patient is an 89 yr male with H/O CVA x2, HTN, HLD, CKD stage III, dementia who presents to ED secondary to fall x2 and elevated heart rate. A. fib RVR CXR:No acute findings.Low lung volumes with suspected left basilar atelectasis. Normal TSH Limited ECHO: Small LV chamber size with normal wall motion, EF 60 to 65% IV Cardizem discontinued Converted to sinus rhythm after IV fluids, IV Cardizem Continue metoprolol 12.5 mg BID Not a long-term anticoagulation candidate Appreciate cardiology input Remains in Sinus (3) Fall: PT/OT eval (4) Abnormal urinalysis: UTI: Urine culture: Citrobacter Koseri Blood culture: Negative to date Continue Rocephin Day #3 Metabolic Encephalopathy-POA Likely due to UTI CT Head:No acute intracranial findings. Right frontal scalp/forehead contusion and laceration. No calvarial fracture. Reorient frequently (5) History of CVA (cerebrovascular accident): H/O left MCA CVA in 2018 Presented to ED May/2019 secondary to altered mental status status post TPA Post TPA MRI revealed old left MCA CVA, but no acute CVA Follows [facility] neurology Continue aspirin, Plavix, Lipitor (6) CKD (chronic kidney disease), stage III: Baseline creatinine 1.8 Creatinine slightly up secondary to dehydration from UTI Monitor renal function Avoid nephrotoxic agents as able Lisinopril on hold for now (7) Hypertension: Hold lisinopril secondary to hypotension and MARY KAY Monitor (8) Hyperglycemia: Hb A1c:6.3 No prior history of diabetes Accu-Cheks AC/at bedtime NovoLog sliding scale coverage No strict glycemic control secondary to advanced age (9) Diastolic dysfunction: Chronic diastolic heart failure Last echocardiogram 05/2019 revealed EF 65 to 70%, grade 2 diastolic dysfunction, moderate aortic valve sclerosis, trace aortic regurg, moderate tricuspid regurg, pulmonary hypertension present B/L lower extremity edema, per family lower extremity edema has been present and stable for about 1 year Monitor daily weights I's and O's Monitor volume status Not on diuretics at home (10) Hyperlipidemia: Continue statin (11) Dementia: At baseline mood stable (12) BPH (benign prostatic hyperplasia): On finasteride Resume terazosin when BP better (13) Anemia: Normocytic normochromic Improved from prior CBC 05/2019 No signs or symptoms of bleeding Continue iron supplement Monitor CBC (14) DVT prophylaxis: Heparin SQ Code Status DNI/DNR Disposition Follow-up: PCP Dr. Hou on discharge PT/OT prior to discharge Subjective Patient is seen and examined at bedside Sitting in chair comfortably this morning Remains in sinus History not reliable secondary to patient's mental status Denies any chest pain, shortness of breath, dizziness, nausea, abdominal pain Urine culture growing Citrobacter Review of Systems Review of Systems: All systems reviewed & are unremarkable except as noted in HPI & below Physical Exam Physical Exam: Physical Exam: Vitals signs as noted above General Appearance:Moderately built and nourished, no apparent distress, Elderly Head: normocephalic, Atraumatic Eyes: normal inspection, EOMI Neck: supple, Trachea midline Respiratory/Chest: Normal breath sounds, CTA Cardiovascular: S1, S2, + systolic murmur Abdomen/GI:Soft, Non tender, Bowel sounds present Extremities/Musculoskelatal:normal inspection, B/L LE edema Neurologic/Psych: grossly no focal neurological deficits Skin: normal color, warm Results & Data Vital Signs (Past 12 Hours) Vital Signs Temp Pulse Pulse Resp BP Pulse Ox 08/16/19 12:00 36.8 C 74 16 132/74 98 08/16/19 08:00 36.5 C 69 62 18 124/68 99 08/16/19 03:52 36.8 C 62 18 120/73 95 Laboratory Results Short CBC 08/16/19 Range/Units 05:24 Hgb 8.9 L (14.0-18.0) g/dL Hct 29.6 L (42-52) % BMP 08/16/19 05:24 Sodium 142 Potassium 4.2 Chloride 114 H Carbon Dioxide 23 BUN 31 H Creatinine 1.80 H Glucose 95 Calcium 8.1 L
[2019-08-17] MEDS: HEPARIN SOD 5,000 UNIT/0.5 ML VIAL SQ SCH ×3 (05:57→21:13)
[2019-08-17 06:31] LABS: Hematocrit (blood only) 29.1 % (42-52); Hemoglobin 8.7 g/dL (14.0-18.0); Mean Corpuscular Hemoglobin 26.9 pg (25-34); Mean Corpuscular Hgb Conc 29.9 g/dL (32-36); Mean Corpuscular Volume 89.8 fL (80-100); Mean Platelet Volume 10.6 fL (7.4-10.4); Platelet Count 231 K/uL (130-400); RDW Coefficient of Variation 17.9 % (11.5-14.5); RDW Standard Deviation 59.3 fL (36.4-46.3); Red Blood Count 3.24 M/uL (4.7-6.1); White Blood Count 6.47 K/uL (4.8-10.8)
[2019-08-17 07:05] LABS: Blood Urea Nitrogen 33 mg/dl (7-18); Calcium 8.1 mg/dl (8.5-10.1); Carbon Dioxide 25 mmol/L (21-32); Chloride 113 mmol/L (98-107); Est GFR (African American) 40.3; Est GFR (Non-African American) 34.7; Glucose 96 mg/dl (70-99); Potassium 4.3 mmol/L (3.5-5.1); Sodium 143 mmol/L (136-145)
[2019-08-17] MEDS: INSULIN ASPART 100 UNITS/ML 3 ML PEN SC SCH ×4 (08:24→21:13)
[2019-08-17] MEDS: ATORVASTATIN 40 MG TAB PO SCH (08:27)
[2019-08-17] MEDS: FERROUS SULFATE 325 MG TAB PO SCH ×2 (08:27→16:48)
[2019-08-17] MEDS: ASPIRIN 81 MG ECTAB PO SCH (08:27)
[2019-08-17] MEDS: LORATADINE 10 MG TAB PO SCH (08:27)
[2019-08-17] MEDS: PANTOprazole 40 MG TAB PO SCH (08:28)
[2019-08-17] MEDS: METOPROLOL TARTRATE 25 MG TAB PO SCH ×2 (08:28→20:26)
[2019-08-17] MEDS: VITAMIN B COMPLEX TAB PO SCH (08:28)
[2019-08-17] MEDS: CLOPIDOGREL BISULFATE 75 MG TAB PO SCH (08:28)
[2019-08-17] MEDS: FINASTERIDE 5 MG TAB PO SCH (08:28)
[2019-08-17] MEDS: cefTRIAXone SODIUM 2,000 MG in DEXTROSE 5% 50 ML IV SCH (08:32)
--- NOTE | 2019-08-17 14:02 | Hospitalist Progress Note ---
Date of Service August 17, 2019 Assessment & Plan (1) Atrial fibrillation with RVR: (2) Hypotension: A. fib RVR CXR:No acute findings.Low lung volumes with suspected left basilar atelectasis. Normal TSH Limited ECHO: Small LV chamber size with normal wall motion, EF 60 to 65% IV Cardizem discontinued Converted to sinus rhythm after IV fluids, IV Cardizem Continue metoprolol 12.5 mg BID Cardiology recommendation noted. Not a long-term anticoagulation candidate (3) Fall: PT recommends SNF (4) UTI (urinary tract infection): (5) Abnormal urinalysis: Urine culture: Citrobacter Koseri Blood culture: Negative to date Currently on IV Rocephin. Pansensitive per sensitivities Switch to p.o. antibiotics tomorrow morning to complete therapy Metabolic Encephalopathy-POA Likely due to UTI in background of dementia CT Head:No acute intracranial findings. Right frontal scalp/forehead contusion and laceration. No calvarial fracture. Reorient frequently (6) History of CVA (cerebrovascular accident): H/O left MCA CVA in 2018 Presented to ED May/2019 secondary to altered mental status status post TPA Post TPA MRI revealed old left MCA CVA, but no acute CVA Follows [facility] neurology Continue aspirin, Plavix, Lipitor (7) CKD (chronic kidney disease), stage III: Baseline creatinine 1.8 Creatinine slightly up on admission (2) likely secondary to dehydration Improved to 1.73 today Monitor renal function Avoid nephrotoxic agents as able Lisinopril on hold for now. Reassess in AM (8) Hypertension: Lisinopril on hold as noted above due to initial hypotension and increased cr BP stable in 140s systolic Monitor (9) Hyperglycemia: Hb A1c:6.3 No prior history of diabetes Accu-Cheks AC/HS NovoLog sliding scale coverage No strict glycemic control secondary to advanced age (10) Diastolic dysfunction: Chronic diastolic heart failure Last echocardiogram 05/2019 revealed EF 65 to 70%, grade 2 diastolic dysfunction, moderate aortic valve sclerosis, trace aortic regurg, moderate tricuspid regurg, pulmonary hypertension present B/L lower extremity edema, Reported to be chronic per chart review. Dopplers of RLE from 04/2019 was negative for DVT Monitor daily weights I's and O's Monitor volume status Not on diuretics at home (11) Hyperlipidemia: Continue statin (12) Dementia: Reported to be at baseline Mood stable (13) BPH (benign prostatic hyperplasia): On finasteride Resume terazosin when BP better (14) Anemia: Normocytic normochromic Hb at baseline. Hb is 8.7 today No signs or symptoms of bleeding Continue iron supplement Monitor CBC (15) DVT prophylaxis: Heparin SQ Code Status DNI/DNR Disposition Follow-up: PCP Dr. Hou on discharge PT - SNF Subjective 89-year-old man with history of CVA x2, hypertension, hyperlipidemia, CKD 3, dementia who presented to the ER after fall x2 with elevated heart rate and was noted to have be hypotensive with A. fib with RVR. Patient was seen and evaluated this morning. He had no complaints Denied any chest pain, shortness of breath, cough, palpitations Denied any dizziness, headache Review of Systems Review of Systems: All systems reviewed and unremarkable except for mentioned above. Physical Exam 2 Physical Exam: General: Elderly man, well-nourished, alert and oriented to person and place only. Eyes: PERRL, conjunctivae normal, not pale, anicteric sclerae, EOM intact bilaterally ENMT: External ear and nose normal, oropharynx normal Neck: Normal visual inspection, no tracheal deviation, no swelling noted Respiratory: Normal respiratory effort, no respiratory distress, lungs clear to auscultation, no crackles and no wheezes Cardiovascular: Pulse is RRR. S1 S2, no murmur Chest (Breasts): Chest: normal inspection of chest Gastrointestinal (Abdomen): Abdomen is not distended, soft, non-tender to palpation, no guarding, no palpable hepatosplenomegaly, normal bowel sounds Musculoskeletal: No cyanosis or clubbing, 1+bilateral leg edema (R slightly more than L) Genitourinary: No CVA tenderness Skin: No rash noted on gross inspection, No ulcers noted Neurologic: Alert and oriented x2, No focal weakness, sensation grossly intact. Psychiatric: Alert and oriented x 2, euthymic affect, no depressed affect, Demonstrates tangentiality and forgetful Results & Data Vital Signs (Past 12 Hours) Vital Signs Temp Pulse Pulse Resp BP Pulse Ox 08/17/19 11:25 36.3 C L 60 18 148/68 H 94 08/17/19 07:45 36.4 C L 47 L 20 144/55 H 94 08/17/19 07:31 53 L 08/17/19 05:28 36.8 C 50 L 20 129/61 98 Laboratory Results Abnormal lab results 08/16/19 08/17/19 08/17/19 Range/Units 16:27 05:58 05:58 RBC 3.24 L (4.7-6.1) M/uL Hgb 8.7 L (14.0-18.0) g/dL Hct 29.1 L (42-52) % MCHC 29.9 L (32-36) g/dL RDW Std Deviation 59.3 H (36.4-46.3) fL RDW Coeff of Octavio 17.9 H (11.5-14.5) % MPV 10.6 H (7.4-10.4) fL Chloride 113 H (98-107) mmol/L BUN 33 H (7-18) mg/dl Creatinine 1.73 H (0.6-1.4) mg/dl POC Glucose 120 H (70-99) Calcium 8.1 L (8.5-10.1) mg/dl 08/17/19 Range/Units 11:18 RBC (4.7-6.1) M/uL Hgb (14.0-18.0) g/dL Hct (42-52) % MCHC (32-36) g/dL RDW Std Deviation (36.4-46.3) fL RDW Coeff of Octavio (11.5-14.5) % MPV (7.4-10.4) fL Chloride (98-107) mmol/L BUN (7-18) mg/dl Creatinine (0.6-1.4) mg/dl POC Glucose 131 H (70-99) Calcium (8.5-10.1) mg/dl
[2019-08-17] MEDS: [UNRECOGNIZED DRUG - REMARK] SCH ×2 (16:29→17:14)
[2019-08-18] MEDS: HEPARIN SOD 5,000 UNIT/0.5 ML VIAL SQ SCH ×3 (06:17→21:00)
[2019-08-18 06:39] LABS: Hematocrit (blood only) 29.9 % (42-52); Hemoglobin 9.2 g/dL (14.0-18.0); Mean Corpuscular Hemoglobin 27.1 pg (25-34); Mean Corpuscular Hgb Conc 30.8 g/dL (32-36); Mean Corpuscular Volume 87.9 fL (80-100); Mean Platelet Volume 10.6 fL (7.4-10.4); Platelet Count 234 K/uL (130-400); RDW Coefficient of Variation 17.8 % (11.5-14.5); RDW Standard Deviation 57.2 fL (36.4-46.3); White Blood Count 6.65 K/uL (4.8-10.8)
[2019-08-18 07:02] LABS: BUN Creatinine Ratio 21.3 (10-20); Calcium 8.2 mg/dl (8.5-10.1); Creatinine Clr Calc Pharmacy 47.8 ml/min; Est GFR (African American) 51.1; Est GFR (Non-African American) 44.1; Potassium 4.2 mmol/L (3.5-5.1)
[2019-08-18] MEDS: cephALEXin 500 MG CAP PO SCH ×2 (07:46→20:58)
[2019-08-18] MEDS: VITAMIN B COMPLEX TAB PO SCH (07:46)
[2019-08-18] MEDS: ASPIRIN 81 MG ECTAB PO SCH (07:46)
[2019-08-18] MEDS: CLOPIDOGREL BISULFATE 75 MG TAB PO SCH (07:46)
[2019-08-18] MEDS: ATORVASTATIN 40 MG TAB PO SCH (07:46)
[2019-08-18] MEDS: PANTOprazole 40 MG TAB PO SCH (07:46)
[2019-08-18] MEDS: FERROUS SULFATE 325 MG TAB PO SCH ×2 (07:47→17:34)
[2019-08-18] MEDS: METOPROLOL TARTRATE 25 MG TAB PO SCH ×2 (07:47→20:58)
[2019-08-18] MEDS: LORATADINE 10 MG TAB PO SCH (07:47)
[2019-08-18] MEDS: INSULIN ASPART 100 UNITS/ML 3 ML PEN SC SCH ×4 (08:27→20:59)
[2019-08-18] MEDS: FINASTERIDE 5 MG TAB PO SCH (08:29)
[2019-08-18] MEDS: [UNRECOGNIZED DRUG - REMARK] SCH ×2 (10:32→10:34)
--- NOTE | 2019-08-18 13:24 | Ultrasound Report ---
RIGHT LOWER EXTREMITY VENOUS DOPPLER CLINICAL HISTORY: Right lower extremity edema. COMPARISON STUDY: Right lower extremity venous Doppler May 05, 2019. TECHNIQUE: Sonography of the deep venous system of the right lower extremity was performed. Compress ion and augmentation were evaluated. FINDINGS: The right common femoral, superficial femoral and popliteal veins were compressible. Augme ntation was normal. Flow was shown within the deep calf vessels. Right lower extremity subcutaneous e adilia was noted. IMPRESSION: No evidence of deep venous thrombus within the right lower extremity. ACT 112: Negative or not required by law. Electronically signed by: Elvis Dixon M.D. 08/18/2019 1:23 PM
--- NOTE | 2019-08-18 13:33 | Hospitalist Progress Note ---
Date of Service August 18, 2019 Assessment & Plan (1) Atrial fibrillation with RVR: (2) Hypotension: A. fib RVR CXR:No acute findings.Low lung volumes with suspected left basilar atelectasis. Normal TSH Limited ECHO: Small LV chamber size with normal wall motion, EF 60 to 65% IV Cardizem discontinued Converted to sinus rhythm after IV fluids, IV Cardizem Rate controlled on metoprolol 12.5 mg BID Cardiology recommendations appreciated Not a long-term anticoagulation candidate (3) Fall: PT recommends SNF Discussed with family caseworker. Placement still in process (4) UTI (urinary tract infection): (5) Abnormal urinalysis: Urine culture: Citrobacter Koseri Blood culture: Negative to date Changed from iv rocephin to po keflex. Metabolic Encephalopathy-POA Likely due to UTI in background of dementia CT Head:No acute intracranial findings. Right frontal scalp/forehead contusion and laceration. No calvarial fracture. Reorient frequently (6) History of CVA (cerebrovascular accident): H/O left MCA CVA in 2018 Presented to ED May/2019 secondary to altered mental status status post TPA Post TPA MRI revealed old left MCA CVA, but no acute CVA Follows [facility] neurology Continue aspirin, Plavix, Lipitor (7) CKD (chronic kidney disease), stage III: Baseline creatinine 1.8 Creatinine slightly up on admission (2) likely secondary to dehydration Improved to 1.42 today Monitor renal function Avoid nephrotoxic agents as able Lisinopril on hold for now. Reassess in AM (8) Hypertension: Lisinopril on hold as noted above due to initial hypotension and increased cr BP stable Monitor (9) Hyperglycemia: Hb A1c:6.3 No prior history of diabetes Accu-Cheks AC/HS NovoLog sliding scale coverage No strict glycemic control secondary to advanced age (10) Diastolic dysfunction: Chronic diastolic heart failure Last echocardiogram 05/2019 revealed EF 65 to 70%, grade 2 diastolic dysfunction, moderate aortic valve sclerosis, trace aortic regurg, moderate tricuspid regurg, pulmonary hypertension present B/L lower extremity edema, Reported to be chronic per chart review. Dopplers of RLE from 04/2019 was negative for DVT Repeat dopplers today negative for DVT (11) Hyperlipidemia: Continue statin (12) Dementia: Reported to be at baseline Mood stable (13) BPH (benign prostatic hyperplasia): On finasteride Terazosin resumed. Changed from qAM home schedule to HS (14) Anemia: Normocytic normochromic Hb at baseline. Hb is 9.2 today No signs or symptoms of bleeding Continue iron supplement (15) DVT prophylaxis: Heparin SQ Code Status DNI/DNR Disposition Follow-up: PCP Dr. Hou on discharge Awaiting placement Subjective Patient has no complaint this morning Review of Systems Review of Systems: All systems reviewed and unremarkable except for mentioned above. Physical Exam Physical Exam: General: Elderly man, well-nourished, alert and oriented to person and place (hospital but does not remember name) Eyes: PERRL, conjunctivae normal, not pale, anicteric sclerae, EOM intact bilaterally ENMT: External ear and nose normal, oropharynx normal Neck: Normal visual inspection, no tracheal deviation, no swelling noted Respiratory: Normal respiratory effort, no respiratory distress, lungs clear to auscultation, no crackles and no wheezes Cardiovascular: Pulse is RRR. S1 S2 Gastrointestinal (Abdomen): Abdomen is not distended, soft, non-tender to palpation, no guarding, no palpable hepatosplenomegaly, normal bowel sounds Musculoskeletal: No cyanosis or clubbing, 1+bilateral leg edema (R > L) Genitourinary: No CVA tenderness Skin: No rash noted on gross inspection, No ulcers noted Neurologic: Alert and oriented x2, No focal weakness, sensation grossly intact. Psychiatric: Euthymic affect, no depressed affect Results & Data Vital Signs (Past 12 Hours) Vital Signs Temp Pulse Pulse Pulse Resp BP BP 08/18/19 12:00 36.4 C L 59 L 20 150/67 H 08/18/19 07:30 36.7 C 63 18 142/57 H 08/18/19 04:28 36.4 C L 54 L 18 123/56 L Pulse Ox 08/18/19 12:00 95 08/18/19 07:30 98 08/18/19 04:28 95 Laboratory Results Abnormal lab results 08/17/19 08/18/19 08/18/19 Range/Units 21:11 06:19 06:19 RBC 3.40 L (4.7-6.1) M/uL Hgb 9.2 L (14.0-18.0) g/dL Hct 29.9 L (42-52) % MCHC 30.8 L (32-36) g/dL RDW Std Deviation 57.2 H (36.4-46.3) fL RDW Coeff of Octavio 17.8 H (11.5-14.5) % MPV 10.6 H (7.4-10.4) fL Chloride 111 H (98-107) mmol/L BUN 30 H (7-18) mg/dl Creatinine 1.42 H D (0.6-1.4) mg/dl BUN/Creatinine Ratio 21.3 H (10-20) Glucose 101 H (70-99) mg/dl POC Glucose 100 H (70-99) Calcium 8.2 L (8.5-10.1) mg/dl 08/18/19 08/18/19 Range/Units 07:55 11:24 RBC (4.7-6.1) M/uL Hgb (14.0-18.0) g/dL Hct (42-52) % MCHC (32-36) g/dL RDW Std Deviation (36.4-46.3) fL RDW Coeff of Octavio (11.5-14.5) % MPV (7.4-10.4) fL Chloride (98-107) mmol/L BUN (7-18) mg/dl Creatinine (0.6-1.4) mg/dl BUN/Creatinine Ratio (10-20) Glucose (70-99) mg/dl POC Glucose 103 H 106 H (70-99) Calcium (8.5-10.1) mg/dl
[2019-08-18] MEDS: TERAZOSIN HCL 5 MG CAP PO SCH (20:58)
[2019-08-19] MEDS: HEPARIN SOD 5,000 UNIT/0.5 ML VIAL SQ SCH ×3 (05:29→21:05)
[2019-08-19] MEDS: ATORVASTATIN 40 MG TAB PO SCH (07:31)
[2019-08-19] MEDS: ASPIRIN 81 MG ECTAB PO SCH (07:31)
[2019-08-19] MEDS: CLOPIDOGREL BISULFATE 75 MG TAB PO SCH (07:31)
[2019-08-19] MEDS: METOPROLOL TARTRATE 25 MG TAB PO SCH ×2 (07:31→20:56)
[2019-08-19] MEDS: LORATADINE 10 MG TAB PO SCH (07:32)
[2019-08-19] MEDS: VITAMIN B COMPLEX TAB PO SCH (07:32)
[2019-08-19] MEDS: PANTOprazole 40 MG TAB PO SCH (07:32)
[2019-08-19] MEDS: FERROUS SULFATE 325 MG TAB PO SCH ×2 (07:32→17:18)
[2019-08-19] MEDS: cephALEXin 500 MG CAP PO SCH ×2 (07:32→20:56)
[2019-08-19] MEDS: INSULIN ASPART 100 UNITS/ML 3 ML PEN SC SCH ×4 (08:14→20:57)
[2019-08-19] MEDS: FINASTERIDE 5 MG TAB PO SCH (08:16)
--- NOTE | 2019-08-19 12:51 | Hospitalist Progress Note ---
Date of Service August 19, 2019 Assessment & Plan (1) Atrial fibrillation with RVR: (2) Hypotension: A. fib RVR CXR:No acute findings.Low lung volumes with suspected left basilar atelectasis. Normal TSH Limited ECHO: Small LV chamber size with normal wall motion, EF 60 to 65% IV Cardizem discontinued Converted to sinus rhythm after IV fluids, IV Cardizem Rate controlled on metoprolol 12.5 mg BID Cardiology recommendations appreciated Not a long-term anticoagulation candidate (3) Fall: PT recommends SNF Discussed with telephonic case manager. Placement still in process (4) UTI (urinary tract infection): (5) Abnormal urinalysis: Urine culture: Citrobacter Koseri Blood culture: Negative to date Continue po keflex to complete therapy Metabolic Encephalopathy-POA Likely due to UTI in background of dementia CT Head:No acute intracranial findings. Right frontal scalp/forehead contusion and laceration. No calvarial fracture. Reorient frequently (6) History of CVA (cerebrovascular accident): H/O left MCA CVA in 2018 Presented to ED May/2019 secondary to altered mental status status post TPA Post TPA MRI revealed old left MCA CVA, but no acute CVA Follows [facility] neurology Continue aspirin, Plavix, Lipitor (7) CKD (chronic kidney disease), stage III: Baseline creatinine 1.8 Creatinine slightly up on admission (2) likely secondary to dehydration Monitor renal function Avoid nephrotoxic agents as able Lisinopril on hold for now to follow-up with PCP (8) Hypertension: Lisinopril on hold as noted above due to initial hypotension and increased cr BP stable Monitor (9) Hyperglycemia: Hb A1c:6.3 No prior history of diabetes Accu-Cheks /HS NovoLog sliding scale coverage No strict glycemic control secondary to advanced age (10) Diastolic dysfunction: Chronic diastolic heart failure Last echocardiogram 05/2019 revealed EF 65 to 70%, grade 2 diastolic dysfunction, moderate aortic valve sclerosis, trace aortic regurg, moderate tricuspid regurg, pulmonary hypertension present B/L lower extremity edema, Reported to be chronic per chart review. Right lower extremity Dopplers negative for DVT (11) Hyperlipidemia: Continue statin (12) Dementia: At baseline Mood stable (13) BPH (benign prostatic hyperplasia): On finasteride Terazosin resumed. Changed from qA home schedule to (14) Anemia: Normocytic normochromic Hb at baseline. No signs or symptoms of bleeding Continue iron supplement (15) DVT prophylaxis: Heparin SQ Code Status DNI/DNR Disposition Follow-up: PCP Dr. Hou on discharge Awaiting placement. Still awaiting authorization and placement. Subjective Patient seen this morning. He has no complaints. Denied any chest pain, palpitation, shortness of breath, cough Denied any abdominal pain, nausea, vomiting, diarrhea No events overnight Review of Systems Review of Systems: All systems reviewed and unremarkable except for mentioned above. Physical Exam Physical Exam: General: Elderly man, well-nourished, alert and oriented to person and place (hospital but does not remember name), occasionally confused Eyes: PERRL, conjunctivae normal, not pale, anicteric sclerae, EOM intact bilaterally ENMT: External ear and nose normal, oropharynx normal Neck: Normal visual inspection, no tracheal deviation, no swelling noted Respiratory: Normal respiratory effort, no respiratory distress, lungs clear to auscultation, no crackles and no wheezes Cardiovascular: Pulse is RRR. S1 S2 Gastrointestinal (Abdomen): Abdomen is not distended, soft, non-tender to palpation, no guarding, no palpable hepatosplenomegaly, normal bowel sounds Musculoskeletal: No cyanosis or clubbing, 1+bilateral leg edema (R > L) Neurologic: Alert and oriented x2, No focal weakness, sensation grossly intact. Psychiatric: Euthymic affect, no depressed affect, occasionally confused Results & Data Vital Signs (Past 12 Hours) Vital Signs Temp Pulse Pulse Pulse Resp BP Pulse Ox 08/19/19 11:30 36.5 C 59 L 16 129/55 L 96 08/19/19 07:14 36.6 C 83 16 147/67 H 92 08/19/19 03:40 36.3 C L 63 20 118/67 96 08/19/19 02:13 58 L Laboratory Results Abnormal lab results 08/18/19 08/19/19 08/19/19 Range/Units 20:32 11:45 16:54 POC Glucose 102 H 104 H 124 H (70-99)
[2019-08-19] MEDS: TERAZOSIN HCL 5 MG CAP PO SCH (20:57)
[2019-08-20] MEDS: HEPARIN SOD 5,000 UNIT/0.5 ML VIAL SQ SCH ×3 (05:53→21:16)
[2019-08-20 08:56] LABS: Hematocrit (blood only) 30.5 % (42-52); Hemoglobin 9.5 g/dL (14.0-18.0); Mean Corpuscular Hemoglobin 27.3 pg (25-34); Mean Corpuscular Hgb Conc 31.1 g/dL (32-36); Mean Corpuscular Volume 87.6 fL (80-100); Mean Platelet Volume 11.1 fL (7.4-10.4); Platelet Count 261 K/uL (130-400); RDW Coefficient of Variation 17.7 % (11.5-14.5); RDW Standard Deviation 56.2 fL (36.4-46.3); Red Blood Count 3.48 M/uL (4.7-6.1)
[2019-08-20] MEDS: PANTOprazole 40 MG TAB PO SCH (09:10)
[2019-08-20] MEDS: ATORVASTATIN 40 MG TAB PO SCH (09:10)
[2019-08-20] MEDS: METOPROLOL TARTRATE 25 MG TAB PO SCH ×2 (09:10→21:15)
[2019-08-20] MEDS: CLOPIDOGREL BISULFATE 75 MG TAB PO SCH (09:10)
[2019-08-20] MEDS: FERROUS SULFATE 325 MG TAB PO SCH ×2 (09:10→17:30)
[2019-08-20] MEDS: FINASTERIDE 5 MG TAB PO SCH (09:10)
[2019-08-20] MEDS: cephALEXin 500 MG CAP PO SCH ×2 (09:11→21:16)
[2019-08-20] MEDS: ASPIRIN 81 MG ECTAB PO SCH (09:11)
[2019-08-20] MEDS: LORATADINE 10 MG TAB PO SCH (09:11)
[2019-08-20] MEDS: VITAMIN B COMPLEX TAB PO SCH (09:11)
[2019-08-20] MEDS: INSULIN ASPART 100 UNITS/ML 3 ML PEN SC SCH ×4 (09:13→21:16)
--- NOTE | 2019-08-20 17:11 | Hospitalist Progress Note ---
Date of Service August 20, 2019 Assessment & Plan (1) Atrial fibrillation with RVR: (2) Hypotension: A. fib RVR CXR:No acute findings.Low lung volumes with suspected left basilar atelectasis. Normal TSH Limited ECHO: Small LV chamber size with normal wall motion, EF 60 to 65% IV Cardizem discontinued Converted to sinus rhythm after IV fluids, IV Cardizem Rate controlled on metoprolol 12.5 mg BID Cardiology recommendations appreciated Not a long-term anticoagulation candidate (3) Fall: PT recommends SNF Discussed with cyanide case hardener. Informed by cyanide case hardener today the patient's SNF was not denied by patient's insurance. Patient is generally weak and will benefit from some rehab. Plan to do peer to peer. Called number for peer to peer provided by cyanide case hardener and left voicemail with callback number and information as requested. Will await callback. (4) UTI (urinary tract infection): (5) Abnormal urinalysis: Urine culture: Citrobacter Koseri Blood culture: Negative to date Continue po keflex to complete therapy. Last day of antibiotics is tomorrow Metabolic Encephalopathy-POA Likely due to UTI in background of dementia CT Head:No acute intracranial findings. Right frontal scalp/forehead contusion and laceration. No calvarial fracture. Reorient frequently (6) History of CVA (cerebrovascular accident): H/O left MCA CVA in 2018 Presented to ED May/2019 secondary to altered mental status status post TPA Post TPA MRI revealed old left MCA CVA, but no acute CVA Follows [facility] neurology Continue aspirin, Plavix, Lipitor (7) CKD (chronic kidney disease), stage III: Baseline creatinine 1.8 Creatinine slightly up on admission (2) likely secondary to dehydration Monitor renal function Avoid nephrotoxic agents as able Lisinopril on hold for now to follow-up with PCP (8) Hypertension: Lisinopril on hold as noted above due to initial hypotension and increased cr BP stable. Usually gets elevated to 150 systolic prior to a.m. meds Monitor (9) Hyperglycemia: Hb A1c:6.3 No prior history of diabetes Accu-Cheks AC/HS NovoLog sliding scale coverage No strict glycemic control secondary to advanced age (10) Diastolic dysfunction: Chronic diastolic heart failure Last echocardiogram 05/2019 revealed EF 65 to 70%, grade 2 diastolic dysfunction, moderate aortic valve sclerosis, trace aortic regurg, moderate tricuspid regurg, pulmonary hypertension present B/L lower extremity edema, Reported to be chronic per chart review. Right lower extremity Dopplers negative for DVT (11) Hyperlipidemia: Continue statin (12) Dementia: At baseline Mood stable (13) BPH (benign prostatic hyperplasia): On finasteride Terazosin resumed. Was changed from qAM home schedule to HS (14) Anemia: Normocytic normochromic Hb at baseline. No signs or symptoms of bleeding Continue iron supplement (15) DVT prophylaxis: Heparin SQ Code Status DNI/DNR Disposition Follow-up: PCP Dr. Hou on discharge Subjective Patient seen and examined this morning. Pleasant, demented. Has no complaints. Review of Systems Review of Systems: Unobtainable due to cognitive status Physical Exam Physical Exam: eneral: Elderly man, well-nourished, alert and oriented to person only, pleasant but confused. Eyes: PERRL, conjunctivae normal, EOM intact bilaterally ENMT: External ear and nose normal, oropharynx normal Neck: Normal visual inspection, no tracheal deviation, no swelling noted Respiratory: Normal respiratory effort, no respiratory distress, lungs clear to auscultation, no crackles and no wheezes Cardiovascular: Pulse is RRR. S1 S2 Gastrointestinal (Abdomen): Abdomen is not distended, soft, non-tender to palpation, no guarding, no palpable hepatosplenomegaly, normal bowel sounds Musculoskeletal: No cyanosis or clubbing, Right leg edema Neurologic: Alert and oriented x (person only), generalized weakness, sensation grossly intact. Psychiatric: Euthymic affect, pleasant, occasionally confused Results & Data Vital Signs (Past 12 Hours) Vital Signs Temp Pulse Pulse Resp BP Pulse Ox 08/20/19 15:29 36.6 C 54 L 16 133/76 94 08/20/19 11:19 36.4 C L 63 16 110/50 L 99 08/20/19 07:34 50 L 08/20/19 07:15 36.4 C L 72 16 155/64 H 95 Laboratory Results Abnormal lab results 08/19/19 08/20/19 08/20/19 Range/Units 20:41 08:31 11:36 RBC 3.48 L (4.7-6.1) M/uL Hgb 9.5 L (14.0-18.0) g/dL Hct 30.5 L (42-52) % MCHC 31.1 L (32-36) g/dL RDW Std Deviation 56.2 H (36.4-46.3) fL RDW Coeff of Octavio 17.7 H (11.5-14.5) % MPV 11.1 H (7.4-10.4) fL POC Glucose 102 H 132 H (70-99) 08/20/19 Range/Units 16:52 RBC (4.7-6.1) M/uL Hgb (14.0-18.0) g/dL Hct (42-52) % MCHC (32-36) g/dL RDW Std Deviation (36.4-46.3) fL RDW Coeff of Octavio (11.5-14.5) % MPV (7.4-10.4) fL POC Glucose 101 H (70-99)
[2019-08-20] MEDS: TERAZOSIN HCL 5 MG CAP PO SCH (21:15)
[2019-08-20] MEDS: [UNRECOGNIZED DRUG - REMARK] SCH ×3 (23:42→23:46)
[2019-08-21] MEDS: HEPARIN SOD 5,000 UNIT/0.5 ML VIAL SQ SCH ×3 (05:07→20:53)
[2019-08-21] MEDS: FINASTERIDE 5 MG TAB PO SCH (08:12)
[2019-08-21] MEDS: ATORVASTATIN 40 MG TAB PO SCH (08:13)
[2019-08-21] MEDS: ASPIRIN 81 MG ECTAB PO SCH (08:13)
[2019-08-21] MEDS: METOPROLOL TARTRATE 25 MG TAB PO SCH ×2 (08:13→20:54)
[2019-08-21] MEDS: LORATADINE 10 MG TAB PO SCH (08:13)
[2019-08-21] MEDS: CLOPIDOGREL BISULFATE 75 MG TAB PO SCH (08:13)
[2019-08-21] MEDS: PANTOprazole 40 MG TAB PO SCH (08:13)
[2019-08-21] MEDS: VITAMIN B COMPLEX TAB PO SCH (08:13)
[2019-08-21] MEDS: FERROUS SULFATE 325 MG TAB PO SCH ×2 (08:13→17:45)
[2019-08-21] MEDS: INSULIN ASPART 100 UNITS/ML 3 ML PEN SC SCH ×4 (08:14→20:53)
--- NOTE | 2019-08-21 13:46 | Hospitalist Progress Note ---
Date of Service August 21, 2019 Assessment & Plan (1) Atrial fibrillation with RVR: (2) Hypotension: A. fib RVR CXR:No acute findings.Low lung volumes with suspected left basilar atelectasis. Normal TSH Limited ECHO: Small LV chamber size with normal wall motion, EF 60 to 65% Required iv cardizem initially, now discontinued Converted to sinus rhythm after IV fluids, IV Cardizem Rate controlled on metoprolol 12.5 mg BID Cardiology recommendations appreciated Not a long-term anticoagulation candidate (3) Fall: PT recommends SNF Discussed with case hardener yesterday who reported that his insurance denied SNF and I called the number provided for peer to peer and left a voicemail with call back as requested but has not received a call back Informed by case hardener today the patient's SNF was not denied by patient's insurance. Patient is generally weak and will benefit from some rehab. Spoke with case hardener today who stated that the peer to peer may not call back till tomorrow due to weekend Will call again tomorrow morning (4) UTI (urinary tract infection): (5) Abnormal urinalysis: Urine culture: Citrobacter Koseri Blood culture: Negative to date Continue po keflex to complete therapy. Last day of antibiotics is today Metabolic Encephalopathy-POA Likely due to UTI in background of dementia CT Head:No acute intracranial findings. Right frontal scalp/forehead contusion and laceration. No calvarial fracture. Reorient frequently (6) History of CVA (cerebrovascular accident): H/O left MCA CVA in 2018 Presented to ED May/2019 secondary to altered mental status status post TPA Post TPA MRI revealed old left MCA CVA, but no acute CVA Follows [facility] neurology Continue aspirin, Plavix, Lipitor (7) CKD (chronic kidney disease), stage III: Baseline creatinine 1.8 Creatinine slightly up on admission (2) likely secondary to dehydration Monitor renal function Avoid nephrotoxic agents as able Lisinopril on hold for now to follow-up with PCP (8) Hypertension: Lisinopril on hold as noted above due to initial hypotension and increased cr BP stable. Continue to monitor BP Will plan to not resume lisinopril even on discharge (9) Hyperglycemia: Hb A1c:6.3 No prior history of diabetes Accu-Cheks AC/HS NovoLog sliding scale coverage No strict glycemic control secondary to advanced age (10) Diastolic dysfunction: Chronic diastolic heart failure Last echocardiogram 05/2019 revealed EF 65 to 70%, grade 2 diastolic dysfunction, moderate aortic valve sclerosis, trace aortic regurg, moderate tricuspid regurg, pulmonary hypertension present B/L lower extremity edema, Reported to be chronic per chart review. Right lower extremity Dopplers negative for DVT (11) Hyperlipidemia: Continue statin (12) Dementia: At baseline Mood stable (13) BPH (benign prostatic hyperplasia): On finasteride Terazosin resumed. Was changed from qAM home schedule to HS (14) Anemia: Normocytic normochromic Hb at baseline. No signs or symptoms of bleeding Continue iron supplement (15) DVT prophylaxis: Heparin SQ Code Status DNI/DNR Disposition Follow-up: PCP Dr. Hou on discharge Subjective Patient seen and examined. No complaints this time. No overnight events. Review of Systems Review of Systems: Unobtainable due to cognitive status Physical Exam Physical Exam: General: Elderly man, well-nourished, alert and oriented to person only, pleasant but confused. Eyes: PERRL, conjunctivae normal, EOM intact bilaterally ENMT: External ear and nose normal, oropharynx normal Neck: Normal visual inspection, no tracheal deviation, no swelling noted Respiratory: Normal respiratory effort, no respiratory distress, lungs clear to auscultation, no crackles and no wheezes Cardiovascular: Pulse is RRR. S1 S2 Gastrointestinal (Abdomen): Abdomen is not distended, soft, non-tender to palpation, no guarding, no palpable hepatosplenomegaly, normal bowel sounds Musculoskeletal: No cyanosis or clubbing, Right leg edema Neurologic: Alert and oriented x (person only), generalized weakness, difficulty sitting up and out of bed without 2 person assist Results & Data Vital Signs (Past 12 Hours) Vital Signs Temp Pulse Pulse Resp BP Pulse Ox 08/21/19 11:25 36.9 C 54 L 16 112/62 96 08/21/19 07:20 36.5 C 70 16 126/55 L 96 08/21/19 07:11 59 L 08/21/19 03:35 36.8 C 68 20 128/68 93 Laboratory Results Abnormal lab results 08/20/19 08/21/19 Range/Units 16:52 11:32 POC Glucose 101 H 148 H (70-99)
[2019-08-21] MEDS: TERAZOSIN HCL 5 MG CAP PO SCH (20:54)
[2019-08-22] MEDS: HEPARIN SOD 5,000 UNIT/0.5 ML VIAL SQ SCH (05:21)
[2019-08-22] MEDS: METOPROLOL TARTRATE 25 MG TAB PO SCH (08:55)
[2019-08-22] MEDS: CLOPIDOGREL BISULFATE 75 MG TAB PO SCH (08:55)
[2019-08-22] MEDS: VITAMIN B COMPLEX TAB PO SCH (08:55)
[2019-08-22] MEDS: ATORVASTATIN 40 MG TAB PO SCH (08:55)
[2019-08-22] MEDS: FERROUS SULFATE 325 MG TAB PO SCH (08:55)
[2019-08-22] MEDS: LORATADINE 10 MG TAB PO SCH (08:55)
[2019-08-22] MEDS: PANTOprazole 40 MG TAB PO SCH (08:55)
[2019-08-22] MEDS: FINASTERIDE 5 MG TAB PO SCH (08:56)
[2019-08-22] MEDS: INSULIN ASPART 100 UNITS/ML 3 ML PEN SC SCH ×2 (08:56→12:30)
[2019-08-22] MEDS: ASPIRIN 81 MG ECTAB PO SCH (08:56)
--- NOTE | 2019-08-22 11:11 | Discharge Summary ---
Date of Service August 22, 2019 Admission HPI Per Admitting Provider This is an 89-year-old male who has significant past medical history of CVA x2, HTN, HLD, CKD stage III, dementia who presents to ED secondary to fall x2 and elevated heart rate. He resides at [facility]. Both sons and [id number] at bedside. History unobtainable from patient secondary to underlying dementia. According to family he had fall yesterday in which he hit his low back. According to nursing staff he also had fallen this morning. When evaluated by staff at [facility] his heart rate was noted to be significantly elevated in the 140s and 150s, and therefore he was recommended to be seen in ED. According to family members his mental status is at baseline he does not appear to be more confused. He has not had any recent illness and there is been no reported fever, chills, nausea, vomiting, diarrhea. No prior history of atrial arrhythmias. Of significance patient was hospitalized back in May 2019 secondary to altered mental status. Stroke alert was called and he did receive TPA. He was hospitalized in the ICU and MRI did not reveal any acute stroke. Repeat CT was -24 hours post TPA for hemorrhage. It was felt he returned back to his baseline. According to family prior to the stroke he was able to ambulate with a walker. He has been working with physical therapy and is almost back to baseline with ambulation. In ED patient presented with A. fib RVR, heart rates in 140s 150s. He was challenged with IV Lopressor 5 mg x 2. Subsequently patient's blood pressure remained low systolically in the 90s. Emergent cardiology consult was requested by ED provider. It was recommended to start patient on diltiazem drip to see if controlling heart rates would improve hemodynamics. He was afebrile throughout ED evaluation and WBC WNL. Chest x-ray negative for acute cardiopulmonary abnormality. Urinalysis does appear concerning for UTI therefore 2 g IV Rocephin was ordered. Patient does meet SIRS criteria given hemodynamic instability with hypotension and tachycardia, lactate 1.9 Admission Exam Per Admitting Provider Constitutional: Elderly, pleasantly demented male, answers questions but not appropriate, WD/WN, vitals as above, NAD, sitting up in bed Head: Normocephalic, Atraumatic Eyes: PERRL, conjunctivae normal, anicteric sclerae ENMT: external ear and nose normal, oropharynx with dry membranes Neck: trachea midline, no thyromegaly normal visual inspection Respiratory: normal respiratory effort, lungs clear to auscultation, no wheeze, rales, rhonchi. Normal insp/exp effort, no accessory muscle use Cardiovascular: IRR/IRR harsh 3/6 TONIO noted precordially, B/L LE Edema R +3, L +2, no Erythema, warmth, negative Homans sign Vessels: no JVD or carotid bruit Chest: normal inspection of chest Abdomen: normal bowel sounds, soft, nontender, no hepatosplenomegaly Musculoskeletal: no cyanosis or clubbing, extremities motor strength 5/5 Skin: no rashes, warm and dry normal turgor Neurologic: PERRL, EOMI, accommodation nl, no face palsy, no dysarthria CN's II-XI intact bilaterally and moves all extremities Psychiatric: A+O to self only, euthymic affect Lymphatic: no cervical or axillary lymphadenopathy : deferred Principal Diagnosis Atrial fibrillation with rapid ventricular rate Hypotension Fall Urinary tract infection [Citrobacter] Discharge Exam General: Elderly man, well-nourished, alert and oriented to person only, pleasant but confused. Eyes: PERRL, conjunctivae normal, EOM intact bilaterally ENMT: External ear and nose normal, oropharynx normal Neck: Normal visual inspection, no tracheal deviation, no swelling noted Respiratory: Normal respiratory effort, no respiratory distress, lungs clear to auscultation, no crackles and no wheezes Cardiovascular: Pulse is RRR. S1 S2 Gastrointestinal (Abdomen): Abdomen is not distended, soft, non-tender to palpation, no guarding, no palpable hepatosplenomegaly, normal bowel sounds Musculoskeletal: No cyanosis or clubbing, Right leg edema Neurologic: Alert and oriented x (person only), generalized weakness, difficulty sitting up and out of bed without assist Discharge Data Allergies Allergy/AdvReac Type Severity Reaction Status Date / Time No Known Allergies Allergy Unverified 08/14/19 10:27 Consultations 08/14/19 11:41 ED Decision to Admit Stat 08/14/19 11:46 Consult Cardiology Stat 08/14/19 13:03 Consult Case Management - Discharge Planning Routine Ordered Studies 08/14/19 11:11 CT cervical spine wo con Stat CT head/brain wo con Stat 08/18/19 10:06 US venous doppler LE RT Stat Hospital Course (1) Atrial fibrillation with RVR: (2) Hypotension: A. fib RVR CXR:No acute findings.Low lung volumes with suspected left basilar atelectasis. Normal TSH Limited ECHO: Small LV chamber size with normal wall motion, EF 60 to 65% Required iv cardizem initially, now discontinued Converted to sinus rhythm after IV fluids, IV Cardizem Rate controlled on metoprolol 12.5 mg BID Was evaluated by cardiology while inpatient. Not a long-term anticoagulation candidate (3) Fall: PT recommends SNF Son prefers to have rehab at [facility] He stated that patient usually does better at the [facility] as he shares a room with his and usually less delirious and familiar environment Discussed son's request with welfare case worker who informed [facility] personnel who evaluated and stated they can provide continued rehab at the home. (4) UTI (urinary tract infection): (5) Abnormal urinalysis: Urine culture: Citrobacter Koseri Blood culture: Negative to date Completed antibiotics while inpatient Metabolic Encephalopathy-POA Likely due to UTI in background of dementia CT Head:No acute intracranial findings. Right frontal scalp/forehead contusion and laceration. No calvarial fracture. Reorient frequently (6) History of CVA (cerebrovascular accident): H/O left MCA CVA in 2018 Presented to ED May/2019 secondary to altered mental status status post TPA Post TPA MRI revealed old left MCA CVA, but no acute CVA Follows [facility] neurology Continue aspirin, Plavix, Lipitor (7) CKD (chronic kidney disease), stage III: Baseline creatinine 1.8 Creatinine slightly up on admission (2) likely secondary to dehydration and returned to baseline Monitor renal function Avoid nephrotoxic agents as able (8) Hypertension: Lisinopril was initially on hold as noted above due to initial hypotension and increased cr BP stable. Continue to monitor BP Do not continue lisinopril on discharge as blood pressure has remained control led on current regimen Follow-up with PCP and continue management as needed (9) Hyperglycemia: Hb A1c:6.3 No prior history of diabetes Accu-Cheks AC/HS NovoLog sliding scale coverage No strict glycemic control secondary to advanced age (10) Diastolic dysfunction: Chronic diastolic heart failure Last echocardiogram 05/2019 revealed EF 65 to 70%, grade 2 diastolic dysfunction, moderate aortic valve sclerosis, trace aortic regurg, moderate tricuspid regurg, pulmonary hypertension present B/L lower extremity edema, Reported to be chronic per chart review. Right lower extremity Dopplers negative for DVT (11) Hyperlipidemia: Continue statin (12) Dementia: At baseline Mood stable (13) BPH (benign prostatic hyperplasia): On finasteride Terazosin resumed. Was changed from qAM home schedule to HS (14) Anemia: Normocytic normochromic Hb at baseline. No signs or symptoms of bleeding Continue iron supplement Total Time Total Time Spent Total Time Spent (In Minutes): 35 Total Time Includes: Examination of the Patient, Discharge Planning and Medication Reconciliation Discharge Plan Discharge Items Patient Disposition: Home - Home Health Services Reason For Visit: FALL, AFIB, RVR Discharge Diagnosis: Atrial fibrillation with rapid ventricular rate Hypotension Fall Urinary tract infection [Citrobacter] Condition on Discharge: Fair Activity: As commented below Activity Comment: Per Physical therapist recommendations Non-emergency contact: Primary Care Provider Call non-emergency contact if: you have any medication questions and your symptoms worsen Follow-up/Referrals: Axel Hou [Primary Care Provider] - Diet: Heart Healthy Addtl Attending Provider Instructions: Mr. Barbosa You were brought to the hospital due to frequent falls and elevated heart rate. You were evaluated in the hospital. You were noted to have abnormal heart rhythm called atrial fibrillation with elevated heart rate and low blood pressure. You were started on medications and abnormal heart rhythm reverted back to normal. You are currently on medications to keep your heart rate controlled. You are being discharged on new medication, metoprolol. Stop taking lisinopril due to low blood pressure. You were never started on any anticoagulation [blood thinners] which will reduce the risk of blood clots and strokes with this kind of heart rhythm due to your risk of fall. Were also found to have a urinary tract infection and has completed antibiotic treatment for this. It is very important that you follow-up with your primary doctor. You are being discharged to your [facility] with physical therapy over there. Please follow up with your Primary Doctor. It was a pleasure taking care of you. Pending Studies at Discharge: No Stand-Alone Forms: My Partender, Smoking Cessation Medications and DC Order Prescriptions: New metoprolol tartrate 25 mg Tablet 12.5 mg PO BID 30 Days Qty: 30 RF: 0 Continued pantoprazole 40 mg tablet,delayed release (DR/EC) 40 mg PO QAM RF: 0 finasteride 5 mg tablet 5 mg PO QAM RF: 0 loratadine 10 mg Tablet 10 mg PO QAM RF: 0 aspirin [Aspirin Low Dose] 81 mg Tablet,Delayed Release (Dr/Ec) 81 mg PO QAM RF: 0 clopidogrel 75 mg Tablet 75 mg PO QAM Qty: 90 RF: 0 atorvastatin [Lipitor] 40 mg tablet 40 mg PO QAM RF: 0 ferrous sulfate 325 mg (65 mg iron) Tablet,Delayed Release (Dr/Ec) 325 mg PO BIDM Qty: 60 RF: 1 vitamin B complex Capsule 1 cap PO QAM RF: 0 Changed terazosin 10 mg capsule 10 mg PO HS Qty: 0 RF: 0 Discontinued lisinopril 5 mg tablet 5 mg PO QAM RF: 0 Discharge Orders: Discharge Order (Routine); Ordered 08/22/19 Ordered By: Ligia Plasencia Admission Data Admit Date/Time: 08/14/19 12:15 Attending Provider: Ligia Plasencia I. Admit Provider: Michael Velez Primary Care Provider: Axel Hou Other Providers: Michael Velez ; Hugh Lopez ; Beth Portillo at [place] Other Interventions: Discharge Summary Assessment (RN) Last Done: 08/22/19 13:16 DC Date/Time DO NOT enter until pt leaves facility: 08/22/19 13:57
== END 2019-08-22 13:57 | disposition home health service (06) | DRG 308 ==
LOC: ED 09:58 → 2S 12:15 → SUATTDRO 12:15 → 2S 13:26 → 2W 08-16 14:13

== ENCOUNTER 2020-07-18 13:32 | Inpatient (IN) ==
[2020-07-18] MEDS ORDERED: METOPROLOL TARTRATE 1 MG/ML VIAL IV STA (14:08)
[2020-07-18 14:23] LABS: Hematocrit (blood only) 31.5 % (42-52); Hemoglobin 9.7 g/dL (14.0-18.0); Mean Corpuscular Hemoglobin 29.6 pg (25-34); Mean Corpuscular Hgb Conc 30.8 g/dL (32-36); Mean Platelet Volume 10.5 fL (7.4-10.4); Platelet Count 186 K/uL (130-400); RDW Coefficient of Variation 16.9 % (11.5-14.5); Red Blood Count 3.28 M/uL (4.7-6.1); White Blood Count 7.94 K/uL (4.8-10.8)
--- NOTE | 2020-07-18 14:30 | Emergency Department Note ---
Impression & Plan Atrial fibrillation with rapid ventricular response, Weakness, Pedal edema, Cellulitis, Bilateral leg pain ED Provider Note NAME: CORI MACHADO AGE: 89 SEX: M : 1930 ARRIVES VIA: Ambulance INFORMANT: [Patient, ems, nursing] ED PROVIDER(S): [Rich Mark MD] CHIEF COMPLAINT: Edema, weakness HISTORY OF PRESENT ILLNESS: Patient is an 89-year-old male who presents to the ED with complaints of pedal edema and weakness. The patient has dementia so history from him is limited. The patient apparently has had increasing weakness and pedal edema. He was sent for an evaluation here in the ED. He is currently a resident at [facility]. There has been no reported fever. The patient does complain of some moderate pain in his legs especially when he walks. More pain on the left. He denies any chest pain, he denies any shortness of breath or abdominal pain. No further history obtainable given his dementia. There is no one at the bedside. REVIEW OF SYSTEMS: See HPI for pertinent positives and negatives. A total of ten systems were reviewed and were otherwise negative. PMHx/PSHx: See Below SOCIAL HISTORY: See Below. PHYSICAL EXAM: GENERAL: Patient is in no acute distress. HEENT: No acute trauma, normocephalic atraumatic, mucous membranes moist, no nasal congestion, no scleral icterus. NECK: No stridor, no adenopathy, no meningismus, trachea is midline. LUNGS: Few scattered wheezes, equal breath sounds, there is no respiratory distress. HEART: Tachycardic, irregular, no murmurs. ABDOMEN: Soft, nontender, bowel sounds positive, no hernias, no peritonitis. EXTREMITIES: No cyanosis, significant bilateral pedal edema with bilateral leg erythema and warmth, worse on the right. Full range of motion of all the joints without pain or difficulty, no signs for acute trauma. NEUROLOGIC: Awake and alert, no acute motor or sensory deficits, no focal weakness. SKIN: No rash, no jaundice, no diaphoresis. Groin: No erythema, some scrotal edema is noted. DIFFERENTIAL DIAGNOSIS: Infection, dehydration, metabolic abnormality, DVT, cellulitis, sepsis, bacteremia, CHF, hypo/hyperglycemia, electrolyte disturbance, anemia, hypoxia, cardiac sources, intracerebral event, toxicologic, neurologic, as well as other pathologies. EMERGENCY DEPARTMENT COURSE/PROCEDURES: ECG: Indication was weakness. The ECG shows what appears to be rapid A. fib. The rate is 117. There is a poor baseline. There is a potential old septal infarct. The QTc is 418. There is no ST elevation, no PVCs. Compared to an ECG from 16 August 2019, A. fib is now present. Continuous Cardiac Monitoring: An order was placed for continuous cardiac monitoring. The monitor shows a rate of 115 with atrial fibrillation. Critical Care Note: I have personally spent 41 minutes of critical care time in the direct management of this patient. This includes bedside care, interpretation of diagnostic studies, and testing, discussion with consultants, patient, and family members, and other required patient management activities. This 41 minutes is in excess of all separately billable procedures. MEDICAL DECISION MAKING: There is no leukocytosis. The patient is anemic but this appears baseline looking back at previous testing. There is a normal platelet count. No coagulopathy. There is some renal insufficiency noted but this is baseline looking back at previous testing. Lactic acid level is not elevated making sepsis less likely. There was no worrisome liver enzyme elevation. TSH was slightly elevated however, the T4 was normal. Urinalysis did not show infection. Covid testing was negative. Bilateral lower extremity ultrasound does not show any evidence for DVT. Chest film does not show pneumonia or CHF. ECG shows a rapid atrial fibrillation, no acute ischemia. Cardiac enzyme testing x1 is not consistent with acute cardiac injury. Patient was given IV Lopressor for the faster heart rate/A. fib. He received IV ceftriaxone as empiric antibiotic coverage. The patient remained in atrial fibrillation at a more rapid rate however, as his blood pressure was tenuous, I did not give any additional IV Lopressor. I suspect the patient's weakness is multifactorial. He is in a rapid A. fib which is contributing. He has significant pedal edema which is contributing. He has what appears to be a bilateral lower extremity cellulitis which is also a contributing factor. Given all the findings, given his presentation, I do think a hospital stay is warranted. I spoke to the patient and to case management. The on-call hospitalist was consulted. Past Med/Surg History Medical History Anemia BPH (benign prostatic hyperplasia) CKD (chronic kidney disease), stage III Diastolic dysfunction History of ischemic left MCA stroke Hyperlipidemia Hypertension Surgical History History of hernia surgery (2014) History of shoulder surgery Hx of cataract surgery (2013) Family History Other Hypertension Social History Smoking Status: Unknown if ever smoked Hx Alcohol Use: No Hx Substance Use: No Preferred Language: Vietnamese Communication Ability: Impaired Chainstitch Seat Joiner Required: No Beliefs That Will Affect Care: None marital status: Current Living Situation: Intermediate Current Living Situation Comment: [facility] current occupational status: retired Other Information That Helps Us Care for You: No Feels Safe at Home: Yes Safety Concerns: Feels Safe At This Time Assistive Devices: Glasses and Walker Allergies Allergies Allergy/AdvReac Type Severity Reaction Status Date / Time No Known Allergies Allergy Unverified 07/18/20 15:00 Home Meds Home Medications Medication Instructions Recorded Confirmed aspirin [Aspirin Low Dose] 81 mg PO QAM 05/15/18 07/18/20 finasteride 5 mg PO QAM 05/15/18 07/18/20 loratadine 10 mg PO QAM 05/15/18 07/18/20 pantoprazole 40 mg PO QAM 05/15/18 07/18/20 atorvastatin [Lipitor] 40 mg PO QAM 11/12/18 07/18/20 vitamin B complex 1 cap PO QAM 08/14/19 07/18/20 albuterol sulfate 2 puff INHALATION Q4H PRN 07/18/20 07/18/20 furosemide 20 mg PO QAM 07/18/20 07/18/20 metoprolol tartrate 12.5 mg PO BID 07/18/20 07/18/20 Previous Rx's Medication Instructions Recorded clopidogrel 75 mg PO QAM #90 tab 05/18/18 ferrous sulfate 325 mg PO BIDM #60 tab 06/09/19 terazosin 10 mg PO HS #0 cap 08/22/19 Results & Data (ED) Vital Signs Vital Signs - 24 hr 07/18/20 13:37 07/18/20 13:41 07/18/20 13:57 Temperature 36.6 C Temperature Source Oral Pulse Rate 117 H 108 H 109 H Pulse Rate [Left] Pulse Rate from SpO2 Sensor 123 H 112 H Respiratory Rate 18 12 14 Respiratory Effort / Characteristics Non-Labored Spontaneous Respiratory Depth Normal Blood Pressure 120/72 120/72 Blood Pressure [Left Arm] Blood Pressure Mean 77 88 Blood Pressure Mean [Left Arm] Blood Pressure Position Lying Blood Pressure Position [Left Arm] Pulse Oximetry 97 97 96 Oxygen Delivery Method Room Air Sepsis Recent Fever Within 48 Hours No Sepsis New/Unexplained Change in Mental Status N/A Sepsis Action Taken by Nursing No Action Required 07/18/20 14:00 07/18/20 14:10 07/18/20 14:11 Temperature Temperature Source Pulse Rate 122 H 119 H 118 H Pulse Rate [Left] 118 H Pulse Rate from SpO2 Sensor 118 H 126 H 114 H Respiratory Rate 14 18 19 Respiratory Effort / Characteristics Non-Labored Spontaneous Respiratory Depth Normal Blood Pressure 133/52 L 110/78 Blood Pressure [Left Arm] 110/78 Blood Pressure Mean 70 82 Blood Pressure Mean [Left Arm] 88 Blood Pressure Position Blood Pressure Position [Left Arm] Lying Pulse Oximetry 96 96 97 Oxygen Delivery Method Room Air Sepsis Recent Fever Within 48 Hours Sepsis New/Unexplained Change in Mental Status Sepsis Action Taken by Nursing 07/18/20 14:12 07/18/20 14:20 07/18/20 14:30 Temperature Temperature Source Pulse Rate 112 H 116 H 110 H Pulse Rate [Left] Pulse Rate from SpO2 Sensor 117 H 114 H Respiratory Rate 16 22 14 Respiratory Effort / Characteristics Respiratory Depth Blood Pressure 131/66 Blood Pressure [Left Arm] Blood Pressure Mean 92 Blood Pressure Mean [Left Arm] Blood Pressure Position Blood Pressure Position [Left Arm] Pulse Oximetry 97 97 97 Oxygen Delivery Method Room Air Sepsis Recent Fever Within 48 Hours Sepsis New/Unexplained Change in Mental Status Sepsis Action Taken by Nursing 07/18/20 14:31 07/18/20 14:38 07/18/20 14:40 Temperature Temperature Source Pulse Rate 118 H 110 H 115 H Pulse Rate [Left] Pulse Rate from SpO2 Sensor 117 H 121 H Respiratory Rate 22 9 L Respiratory Effort / Characteristics Respiratory Depth Blood Pressure 131/66 Blood Pressure [Left Arm] Blood Pressure Mean Blood Pressure Mean [Left Arm] Blood Pressure Position Blood Pressure Position [Left Arm] Pulse Oximetry 97 98 Oxygen Delivery Method Sepsis Recent Fever Within 48 Hours Sepsis New/Unexplained Change in Mental Status Sepsis Action Taken by Nursing 07/18/20 16:30 07/18/20 16:50 Temperature Temperature Source Pulse Rate 116 H 120 H Pulse Rate [Left] Pulse Rate from SpO2 Sensor Respiratory Rate 16 20 Respiratory Effort / Characteristics Respiratory Depth Blood Pressure 113/86 Blood Pressure [Left Arm] Blood Pressure Mean 89 Blood Pressure Mean [Left Arm] Blood Pressure Position Blood Pressure Position [Left Arm] Pulse Oximetry 98 98 Oxygen Delivery Method Room Air Sepsis Recent Fever Within 48 Hours Sepsis New/Unexplained Change in Mental Status Sepsis Action Taken by Intermediate Medications Current Medication List: was personally reviewed by me Laboratory Data Attestation: I reviewed the patient's lab results. Result diagrams: 07/18/20 13:55 07/18/20 13:55 Lab Results 07/18/20 07/18/20 07/18/20 Range/Units 13:55 13:55 13:55 WBC 7.94 (4.8-10.8) K/uL RBC 3.28 L (4.7-6.1) M/uL Hgb 9.7 L (14.0-18.0) g/dL Hct 31.5 L (42-52) % MCV 96.0 (80-100) fL MCH 29.6 (25-34) pg MCHC 30.8 L (32-36) g/dL RDW Std Deviation 59.0 H (36.4-46.3) fL RDW Coeff of Octavio 16.9 H (11.5-14.5) % Plt Count 186 (130-400) K/uL MPV 10.5 H (7.4-10.4) fL Immature Gran % (Auto) 0.4 % Neut % (Auto) 78.1 % Lymph % (Auto) 12.2 % Clay % (Auto) 6.7 % Eos % (Auto) 2.5 % Baso % (Auto) 0.1 % Neut # (Auto) 6.20 (1.4-6.5) K/uL Lymph # (Auto) 0.97 L (1.2-3.4) K/uL Clay # (Auto) 0.53 (0.11-0.59) K/uL Eos # (Auto) 0.20 (0-0.5) K/uL Baso # (Auto) 0.01 (0-0.2) K/uL Immature Gran # (Auto) 0.03 H (0.00-0.02) K/uL PT 11.6 (9.0-12.0) Seconds INR 1.1 (0.9-1.1) APTT 27.9 (21.0-31.0) Seconds PTT Ratio 1.0 Sodium 139 (136-145) mmol/L Potassium 4.0 (3.5-5.1) mmol/L Chloride 107 (98-107) mmol/L Carbon Dioxide 28 (21-32) mmol/L Anion Gap 4.0 (3-11) BUN 33 H (7-18) mg/dl Creatinine 1.75 H (0.6-1.4) mg/dl Est Cr Clr Drug Dosing Not Reportable Est GFR ( Amer) 39.4 Est GFR (Non-Af Amer) 34.0 BUN/Creatinine Ratio 18.9 (10-20) Glucose 130 H (70-99) mg/dl Lactate (0.4-2.0) mmol/L Calcium 7.9 L (8.5-10.1) mg/dl Magnesium 2.4 (1.8-2.4) mg/dl Total Bilirubin 0.8 (0.2-1) mg/dl AST 25 (15-37) U/L ALT 19 (12-78) U/L Alkaline Phosphatase 79 (45-117) U/L Troponin I 0.016 (0-0.045) ng/ml Total Protein 7.1 (6.4-8.2) gm/dl Albumin 3.2 L (3.4-5.0) gm/dl Globulin 3.9 (2.5-4.0) gm/dl Albumin/Globulin Ratio 0.8 L (0.9-2) TSH 7.410 H (0.300-4.500) uIu/ml Free T4 0.82 (0.8-1.6) ng/dl 07/18/20 Range/Units 14:38 WBC (4.8-10.8) K/uL RBC (4.7-6.1) M/uL Hgb (14.0-18.0) g/dL Hct (42-52) % MCV (80-100) fL MCH (25-34) pg MCHC (32-36) g/dL RDW Std Deviation (36.4-46.3) fL RDW Coeff of Octavio (11.5-14.5) % Plt Count (130-400) K/uL MPV (7.4-10.4) fL Immature Gran % (Auto) % Neut % (Auto) % Lymph % (Auto) % Clay % (Auto) % Eos % (Auto) % Baso % (Auto) % Neut # (Auto) (1.4-6.5) K/uL Lymph # (Auto) (1.2-3.4) K/uL Clay # (Auto) (0.11-0.59) K/uL Eos # (Auto) (0-0.5) K/uL Baso # (Auto) (0-0.2) K/uL Immature Gran # (Auto) (0.00-0.02) K/uL PT (9.0-12.0) Seconds INR (0.9-1.1) APTT (21.0-31.0) Seconds PTT Ratio Sodium (136-145) mmol/L Potassium (3.5-5.1) mmol/L Chloride (98-107) mmol/L Carbon Dioxide (21-32) mmol/L Anion Gap (3-11) BUN (7-18) mg/dl Creatinine (0.6-1.4) mg/dl Est Cr Clr Drug Dosing Est GFR ( Amer) Est GFR (Non-Af Amer) BUN/Creatinine Ratio (10-20) Glucose (70-99) mg/dl Lactate 1.5 (0.4-2.0) mmol/L Calcium (8.5-10.1) mg/dl Magnesium (1.8-2.4) mg/dl Total Bilirubin (0.2-1) mg/dl AST (15-37) U/L ALT (12-78) U/L Alkaline Phosphatase (45-117) U/L Troponin I (0-0.045) ng/ml Total Protein (6.4-8.2) gm/dl Albumin (3.4-5.0) gm/dl Globulin (2.5-4.0) gm/dl Albumin/Globulin Ratio (0.9-2) TSH (0.300-4.500) uIu/ml Free T4 (0.8-1.6) ng/dl Administered Medications Heparin Sodium (Porcine) (Heparin Sod 5,000 Unit/0.5 Ml Vial) 5,000 units SQ Q8 HYACINTH Stop: 08/17/20 21:59 Last Admin: 07/18/20 20:33 Dose: 5,000 units Documented by: [id number] Doxycycline Hyclate 100 mg/ (Dextrose) 110 mls @ 50 mls/hr IV Q12H HYACINTH Stop: 07/25/20 16:59 Last Infusion: 07/18/20 20:29 Dose: 0 mls/hr Documented by: [id number] Admin: 07/18/20 18:08 Dose: 50 mls/hr Documented by: [id number] Metoprolol Tartrate (Metoprolol Tartrate 25 Mg Tab) 25 mg PO BID HYACINTH Stop: 08/17/20 20:59 Last Admin: 07/18/20 20:29 Dose: 25 mg Documented by: [id number] Terazosin HCl (Terazosin Hcl 5 Mg Cap) 10 mg PO HS HYACINTH Stop: 08/17/20 20:59 Last Admin: 07/18/20 20:29 Dose: 10 mg Documented by: [id number] Discontinued Medications Ceftriaxone Sodium (Rocephin) 2,000 mg in 70 mls @ 140 mls/hr IV NOW STA Stop: 07/18/20 16:02 Last Infusion: 07/18/20 16:52 Dose: 0 mls/hr Documented by: [id number] Admin: 07/18/20 16:22 Dose: 140 mls/hr Documented by: [id number] Metoprolol Tartrate (Metoprolol Tartrate 1 Mg/Ml Vial) 5 mg IV NOW STA Stop: 07/18/20 14:09 Last Admin: 07/18/20 14:38 Dose: 5 mg Documented by: [id number] Imaging Data Radiologist's Impression: XR chest 1V portable HISTORY: weakness COMPARISON: Chest 07/09/2020. FINDINGS: Cardiac silhouette remains mildly enlarged. There are few left basilar linear densities suggesting subsegmental atelectasis. Otherwise, lungs are clear. No pleural effusions. No pneumothorax. IMPRESSION: 1. Stable mild cardiomegaly. 2. Left basilar linear densities favor scarring or subsegmental atelectasis. BILATERAL LOWER EXTREMITY VENOUS DOPPLER CLINICAL HISTORY: swelling COMPARISON STUDY: Right lower extremity venous Doppler ultrasound August 18, 2019. Left lower cavity venous Doppler ultrasound November 12, 2018. TECHNIQUE: Sonography of the deep venous system of the bilateral lower extremities was performed. Compression and augmentation were evaluated. FINDINGS: The bilateral common femoral, superficial femoral and popliteal veins were compressible. Augmentation was normal. Flow was shown within the deep calf vessels. Lower extremity edema was noted. IMPRESSION: No evidence of deep venous thrombus within the bilateral lower extremities although exam compromised by suboptimal penetration. Discharge Plan Visit Data Chief Complaint: Swelling/Edema to Extremity Stated Complaint: LOWER BODY EDEMA, REFERRED BY PCP ED Provider: Rich Mark Discharge Problem: Atrial fibrillation with rapid ventricular response, Weakness, Pedal edema, Cellulitis, Bilateral leg pain Patient Disposition: Admitted As Inpatient Condition: Fair Discharge Instructions Interventions: ED Discharge Assessment Last Done: 07/18/20 18:25 Discharge Problem: Cellulitis Qualifiers: Site of cellulitis: extremity Site of cellulitis of extremity: lower extremity Laterality: unspecified laterality Qualified Code(s): L03.119 - Cellulitis of un specified part of limb
[2020-07-18 14:31] LABS: Alanine Aminotransferase 19 U/L (12-78); Albumin Level 3.2 gm/dl (3.4-5.0); Aspartate Aminotransferase 25 U/L (15-37); BUN Creatinine Ratio 18.9 (10-20); Blood Urea Nitrogen 33 mg/dl (7-18); Calcium 7.9 mg/dl (8.5-10.1); Carbon Dioxide 28 mmol/L (21-32); Chloride 107 mmol/L (98-107); Est GFR (African American) 39.4; Glucose 130 mg/dl (70-99); Magnesium 2.4 mg/dl (1.8-2.4); Sodium 139 mmol/L (136-145)
[2020-07-18 14:36] LABS: INR 1.1 (0.9-1.1); Partial Thromboplastin Time 27.9 Seconds (21.0-31.0); Prothrombin Time 11.6 Seconds (9.0-12.0)
--- NOTE | 2020-07-18 14:37 | XRay Report ---
XR chest 1V portable HISTORY: weakness COMPARISON: Chest 07/09/2020. FINDINGS: Cardiac silhouette remains mildly enlarged. There are few left basilar linear densities sug gesting subsegmental atelectasis. Otherwise, lungs are clear. No pleural effusions. No pneumothorax. IMPRESSION: 1. Stable mild cardiomegaly. 2. Left basilar linear densities favor scarring or subsegmental atelectasis. ACT 112: Negative or not required by law. Electronically signed by: Daryn Taylor M.D. 07/18/2020 2:36 PM
[2020-07-18 14:42] LABS: Albumin Globulin Ratio 0.8 (0.9-2); Alkaline Phosphatase 79 U/L (45-117); Bilirubin,Total 0.8 mg/dl (0.2-1); Globulin 3.9 gm/dl (2.5-4.0); Total Protein 7.1 gm/dl (6.4-8.2); Troponin I 0.016 ng/ml (0-0.045)
[2020-07-18 14:52] LABS: Basophils # (auto) 0.01 K/uL (0-0.2); Basophils % (auto) 0.1 %; Eosinophils % (auto) 2.5 %; Immature Granulocytes # (auto) 0.03 K/uL (0.00-0.02); Immature Granulocytes % (auto) 0.4 %; Lymphocytes # (auto) 0.97 K/uL (1.2-3.4); Lymphocytes % (auto) 12.2 %; Monocytes # (auto) 0.53 K/uL (0.11-0.59); Monocytes % (auto) 6.7 %; Neutrophils % (auto) 78.1 %
[2020-07-18 15:01] LABS: T4 Free Thyroxine 0.82 ng/dl (0.8-1.6)
[2020-07-18] MEDS ORDERED: cefTRIAXone SODIUM 2,000 MG/70 ML BAG IV STA (15:33)
--- NOTE | 2020-07-18 15:40 | Ultrasound Report ---
BILATERAL LOWER EXTREMITY VENOUS DOPPLER CLINICAL HISTORY: swelling COMPARISON STUDY: Right lower extremity venous Doppler ultrasound August 18, 2019. Left lower cavi ty venous Doppler ultrasound November 12, 2018. TECHNIQUE: Sonography of the deep venous system of the bilateral lower extremities was performed. Co mpression and augmentation were evaluated. FINDINGS: The bilateral common femoral, superficial femoral and popliteal veins were compressible. A ugmentation was normal. Flow was shown within the deep calf vessels. Lower extremity edema was noted. IMPRESSION: No evidence of deep venous thrombus within the bilateral lower extremities although exam compromised by suboptimal penetration. ACT 112: Negative or not required by law. Electronically signed by: Elvis Dixon M.D. 07/18/2020 3:38 PM
--- NOTE | 2020-07-18 16:39 | History & Physical Report ---
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 -Increased swelling and erythma x 1.5-2 weeks, per discussion with staff over phone. Some improvement with topical antibiotic cream -Given Rocephin in ED. Continue Rocephin and added doxycycline -Chronic lower extremity edema and venous insufficiency, per review. Continue h ome lasix dose -No evidence of DVT on bilateral lower extremity Doppler ultrasound -PT/OT eval (2) Atrial fibrillation with RVR: EKG with A. fib with RVR with HR of 117. Previously admitted with atrial fibrillation in July 2019 and converted to sinus rhythm at that time after IV fluids and Cardizem -Increase home dose metoprolol tartrate to 25mg BID. 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 -Follows with [facility] neurology -Continue aspirin, Plavix, Lipitor (4) Diastolic dysfunction: Chronic diastolic heart failure, 2D echo in 08/12 with EF 60-65%, normal wall motion. Grade 2 diastolic dysfunction, moderate aortic valve sclerosis, trace aortic regurg, moderate tricuspid regurg noted previously -Bilateral lower extremity edema reported to be chronic, per chart review. Jhonny nue home lasix (5) Dementia: Alert and oriented to self. Mood stable (6) CKD (chronic kidney disease), stage III: Cr at baseline of 1.75. Monitor renal function, avoid nephrotoxic agents as able (7) Hypertension: Normotensive. Continue lopressor (8) Iron deficiency anemia: Hgb at baseline. Continue iron supplement and daily CBC (9) BPH (benign prostatic hyperplasia): Continue finasteride and terazosin (10) Hyperlipidemia: Continue statin DVT Ppx: SQ heparin Code status: DNR per chart review PCP: [facility] - Dispo: Admitted to [facility]. Discharge planning ordered. Patient seen in collaboration with Dr. Velez. Please see addendum. 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 Patient has advanced dementia, so histor y limited. No family at bedside. Per phone discussion with staff, patient has been having more frequent falls with increased lower extremity swelling over the past month. Ambulates with walker. Was last seen by provider at the beginning of June and was started on Lasix 20 mg, atorvastatin 40 mg and aspirin 81 mg daily. Over the past week or so, patient has been complaining of lower extremi ty pain with some redness and warmth as well. Staff has been applying topical antibiotic cream with some improvement. Denies any chest pain, shortness of breath, abdominal pain or pain in legs at this time. ROS otherwise limited due to cognitive state. In ED, patient is afebrile and saturating at 97% on room air. EKG with A. fib with RVR with HR of 117. Previously admitted with atrial fibrillation in July 2019. At that time, patient was determined to be a poor candidate for anticoagulation due to dementia and fall risk. CXR with stable mild cardiomegaly and left basilar linear densities favor scarring or subsegmental atelectasis. Bilateral venous Dopplers without evidence of DVT. Creatinine of 1.75, which is at baseline. COVID screen is negative. Potassium of 4, magnesium of 2.4. TSH elevated at 7.4 but free T4 within normal range. Allergies Allergy/AdvReac Type Severity Reaction Status Date / Time No Known Allergies Allergy Unverified 07/18/20 15:00 Home Medications Medication Instructions Recorded Confirmed Type aspirin [Aspirin Low Dose] 81 mg PO QAM 05/15/18 07/18/20 History finasteride 5 mg PO QAM 05/15/18 07/18/20 History loratadine 10 mg PO QAM 05/15/18 07/18/20 History pantoprazole 40 mg PO QAM 05/15/18 07/18/20 History clopidogrel 75 mg PO QAM #90 tab 05/18/18 07/18/20 Rx atorvastatin [Lipitor] 40 mg PO QAM 11/12/18 07/18/20 History ferrous sulfate 325 mg PO BIDM #60 tab 06/09/19 07/18/20 Rx vitamin B complex 1 cap PO QAM 08/14/19 07/18/20 History terazosin 10 mg PO HS #0 cap 08/22/19 07/18/20 Rx albuterol sulfate 2 puff INHALATION Q4H PRN 07/18/20 07/18/20 History furosemide 20 mg PO QAM 07/18/20 07/18/20 History metoprolol tartrate 12.5 mg PO BID 07/18/20 07/18/20 History Past Med/Surg History Medical History (Updated 07/18/20 @ 21:00 by Rich Mark MD) Anemia BPH (benign prostatic hyperplasia) CKD (chronic kidney disease), stage III Diastolic dysfunction History of ischemic left MCA stroke Hyperlipidemia Hypertension Surgical History History of hernia surgery (2014) History of shoulder surgery Hx of cataract surgery (2013) Family History Other Hypertension Social History Smoking Status: Unknown if ever smoked Hx Alcohol Use: No Hx Substance Use: No Preferred Language: Swedish Communication Ability: Impaired 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 Physical Exam Physical Exam: General Appearance: vitals as above, NAD, sitting up in bed, pleasantly confused, dysarthric Head: normocephalic, atraumatic Eyes: normal inspection, PERRL, conjunctivae normal, anicteric sclerae ENT: external ear and nose normal, oropharynx normal Neck: normal visual inspection, trachea midline, no thyromegaly Respiratory: normal respiratory effort, scattered expiratory wheezes, no rales or rhonchi. No accessory muscle use Cardiovascular: irregular rate & rhythm, no murmur appreciated, normal peripheral pulses, 2+ pitting BLE edema. Vessels: no JVD Chest: normal inspection of chest Abdomen/GI: normal bowel sounds, soft but distended, nontender, no hepatosplenomegaly Extremities/Musculoskeletal: BLE with 2+ pitting edema, and overlying erythema on anterior shins, warm to touch with scant serous draining. No cyanosis or clubbing, extremities motor strength 5/5 Neurologic: PERRL, + dysarthria, CN's II-XI intact bilaterally and moves all extremities Psychiatric: Alert and oriented to self but not place, time or situation. Euthymic affect Skin: normal color, warm/dry, scattered ecchymosis on BUE. + See MSK Results & Data Results & Data ([facility]) Vital Signs (Past 12 Hours) Vital Signs Temp Pulse Pulse Resp BP BP Pulse Ox 07/18/20 14:40 115 H 9 L 98 07/18/20 14:38 110 H 131/66 07/18/20 14:31 118 H 22 97 07/18/20 14:30 110 H 14 131/66 97 07/18/20 14:20 116 H 22 97 07/18/20 14:12 112 H 16 97 07/18/20 14:11 118 H 19 110/78 97 07/18/20 14:10 119 H 118 H 18 110/78 96 07/18/20 14:00 122 H 14 133/52 L 96 07/18/20 13:57 109 H 14 96 07/18/20 13:41 36.6 C 108 H 12 120/72 97 07/18/20 13:37 117 H 18 120/72 97 Laboratory Results Short CBC 07/18/20 Range/Units 13:55 WBC 7.94 (4.8-10.8) K/uL Hgb 9.7 L (14.0-18.0) g/dL Hct 31.5 L (42-52) % Plt Count 186 (130-400) K/uL BMP 07/18/20 13:55 Sodium 139 Potassium 4.0 Chloride 107 Carbon Dioxide 28 BUN 33 H Creatinine 1.75 H Glucose 130 H Calcium 7.9 L Cardiac Enzymes 07/18/20 Range/Units 13:55 Troponin I 0.016 (0-0.045) ng/ml Liver Function 07/18/20 Range/Units 13:55 Total Bilirubin 0.8 (0.2-1) mg/dl AST 25 (15-37) U/L ALT 19 (12-78) U/L Alkaline Phosphatase 79 (45-117) U/L Albumin 3.2 L (3.4-5.0) gm/dl Urine 07/18/20 Range/Units 16:58 Urine Color Yellow Urine Appearance Clear (Clear) Urine pH 5.0 (4.5-7.5) Ur Specific [place] 1.018 (1.000-1.030) Urine Protein Negative (Negative) Urine Glucose (UA) Negative (Negative) Diagnostic Findings CXR: IMPRESSION: 1. Stable mild cardiomegaly. 2. Left basilar linear densities favor scarring or subsegmental atelectasis. Venous doppler study: IMPRESSION: No evidence of deep venous thrombus within the bilateral lower extremities although exam compromised by suboptimal penetration. Supervising Physician Co-Signing Physician Notes Patient is an 89-year-old male with history of advanced dementia, hypertension, CVA, CKD stage III and other medical problems presents from [facility] with bilateral lower extremity swelling, pain, erythema and generalized weakness. History could not be obtained from the patient given advanced dementia. Most of the history is obtained from ER physician, staff at [facility] and [facility]. Please review HPI for complete details of presentation. He was noted to be in A. fib RVR while in ED. He was considered not a candidate for long-term anticoagulation during prior admission. Chronic anemia, renal insufficiency noted on labs at baseline functional status. No leukocytosis, normal lactate levels noted. Currently afebrile. Venous Dopplers negative for any acute DVT. On exam patient is elderly, no apparent distress, dementia, normocephalic atraumatic, lungs normal breath sounds, scattered wheezes, irregularly irregular rhythm, tachycardia, bilateral lower extremity edema, abdomen-firm, distended, normal bowel sounds, no tenderness, alert, awake, not oriented, grossly moves all extremities, bilateral lower extremity erythema, warmth, edematous. Patient is admitted for management of bilateral lower extremity cellulitis and A. fib RVR. Venous Dopplers negative for DVT. Agree with Rocephin, doxycycline. Blood cultures obtained. Will increase home dose of metoprolol to 25 mg twice daily. IV Lopressor as needed. Given advanced dementia and comorbidities, not a candidate for anticoagulation as per cardiology. Monitor renal function and decrease electrolytes as needed. Closely monitor volume status. I personally reviewed the record. Patient is interviewed and examined at bedside. Patient's care is coordinated with Amelia Daley PA-C. Please refer to the documentation above for details of patient's presentation and for discussion of other issues.
[2020-07-18 17:08] LABS: Appearance Urine Clear (Clear); Bacteria Urine Automated Negative (Negative); Bilirubin Urine Negative (Negative); Blood Urine Trace (Negative); Color Urine Yellow; Glucose Urine UA Negative (Negative); Ketones Urine Negative (Negative); Leukocyte Esterase Urine Negative (Negative); Nitrite Urine Negative (Negative); Protein Urine Negative (Negative); RBC Urine Automated 0-4 /hpf (0-4); Specific Gravity Urine 1.018 (1.000-1.030); Urobilinogen Urine Negative (Negative); WBC Urine Automated 0 /hpf (0-5)
[2020-07-18] MEDS: DOXYCYCLINE HYCLATE 100 MG in DEXTROSE 5% 100 ML IV SCH (18:08)
[2020-07-18] MEDS ORDERED: ONDANSETRON INJ 2 MG/ML 2 ML VIAL IV PRN (19:09)
[2020-07-18] MEDS ORDERED: ACETAMINOPHEN 325 MG TAB PO PRN (19:09)
[2020-07-18] MEDS ORDERED: METOPROLOL TARTRATE 1 MG/ML VIAL IV PRN (19:53)
[2020-07-18] MEDS: TERAZOSIN HCL 5 MG CAP PO SCH (20:29)
[2020-07-18] MEDS: METOPROLOL TARTRATE 25 MG TAB PO SCH (20:29)
[2020-07-18] MEDS: HEPARIN SOD 5,000 UNIT/0.5 ML VIAL SQ SCH (20:33)
--- NOTE | 2020-07-18 22:03 | Electrocardiogram Report ---
Test Reason : Blood Pressure : / mmHG Vent. Rate : 117 BPM Atrial Rate : 110 BPM P-R Int : 000 ms QRS Dur : 084 ms QT Int : 300 ms P-R-T Axes : 000 -64 104 degrees QTc Int : 418 ms Poor data quality, interpretation may be adversely affected Atrial fibrillation with rapid ventricular response Left axis deviation Septal infarct , age undetermined Abnormal ECG When compared with ECG of 16-AUG-2019 06:37, Atrial fibrillation has replaced Sinus rhythm Vent. rate has increased BY 53 BPM Nonspecific T wave abnormality, worse in Lateral leads Confirmed by Zack Peraza ([id number]) on 07/18/2020 10:02:48 PM Referred By: Confirmed By:Zack Peraza
[2020-07-19] MEDS: DOXYCYCLINE HYCLATE 100 MG in DEXTROSE 5% 100 ML IV SCH ×2 (04:49→17:18)
[2020-07-19] MEDS: ALBUTEROL HFA 8 GM INHALER INH PRN (05:00)
[2020-07-19 05:58] LABS: Hematocrit (blood only) 27.4 % (42-52); Hemoglobin 8.5 g/dL (14.0-18.0); Mean Corpuscular Hemoglobin 29.8 pg (25-34); Mean Corpuscular Volume 96.1 fL (80-100); Mean Platelet Volume 10.3 fL (7.4-10.4); Platelet Count 171 K/uL (130-400); RDW Coefficient of Variation 16.7 % (11.5-14.5); RDW Standard Deviation 58.2 fL (36.4-46.3); Red Blood Count 2.85 M/uL (4.7-6.1); White Blood Count 5.15 K/uL (4.8-10.8)
[2020-07-19] MEDS: HEPARIN SOD 5,000 UNIT/0.5 ML VIAL SQ SCH ×2 (06:08→20:12)
[2020-07-19 06:33] LABS: Calcium 7.7 mg/dl (8.5-10.1); Creatinine Clr Calc Pharmacy 39.6 ml/min; Est GFR (African American) 43.9; Est GFR (Non-African American) 37.9; Magnesium 2.3 mg/dl (1.8-2.4); Potassium 3.7 mmol/L (3.5-5.1)
--- NOTE | 2020-07-19 08:06 | XRay Report ---
KUB HISTORY: Acute generalized abdominal pain with distention abd distention COMPARISON: Abdominal radiographs 10/05/2013 FINDINGS: Gas-filled distended loops of large bowel measure up to 6.9 cm. Moderate fecal retention. N o definite small bowel distention. No urolith. No pneumatosis or pneumoperitoneum. Degenerative nunez es of the spine, pelvis and hips. Vascular calcifications of the pelvis. Cardiomegaly. IMPRESSION: 1. Distended gas-filled loops of large bowel are suggestive of colonic ileus. 2. Moderate fecal retention. 3. No pneumoperitoneum. ACT 112: Negative or not required by law. The above report was generated using voice recognition software. It may contain grammatical, syntax o r spelling errors. Electronically signed by: Christ Fernandez M.D. 07/19/2020 8:05 AM
[2020-07-19] MEDS: ATORVASTATIN 40 MG TAB PO SCH (08:15)
[2020-07-19] MEDS: FERROUS SULFATE 325 MG TAB PO SCH ×2 (08:15→17:18)
[2020-07-19] MEDS: ASPIRIN 81 MG ECTAB PO SCH (08:15)
[2020-07-19] MEDS: LORATADINE 10 MG TAB PO SCH (08:16)
[2020-07-19] MEDS: FINASTERIDE 5 MG TAB PO SCH (08:17)
[2020-07-19] MEDS: VITAMIN B COMPLEX TAB PO SCH (08:17)
[2020-07-19] MEDS: PANTOprazole 40 MG TAB PO SCH (08:17)
[2020-07-19] MEDS: CLOPIDOGREL BISULFATE 75 MG TAB PO SCH (08:18)
[2020-07-19] MEDS: METOPROLOL TARTRATE 25 MG TAB PO SCH ×2 (08:28→20:09)
[2020-07-19] MEDS ORDERED: ACETAMINOPHEN 325 MG TAB PO PRN (08:31)
--- NOTE | 2020-07-19 08:46 | Hospitalist Progress Note ---
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 Some improvement with topical antibiotic cream. Patient was given Rocephin in ED and while continue Rocephin, doxycycline also added. -No evidence of deep venous thrombus within the bilateral lower extremities although venous doppler study on 07/18/2020 compromised by suboptimal penetration. -07/19/2020 AM hospitalist evaluation The patient seen and examined at bedside. He is breathing on room air, does not appear to be short of breath. His heart rhythm on telemetry continues to be in atrial fibrillation but generally controlled in the low 100s. As consistent with patient's reported history of dementia, he is a poor historian and does not answer questions well in general - He could not tell me where he lives (notes document that patient is from [facility] Patient's history and phy sical reports of chronic lower extremity edema due to venous insufficiency, however on my exam as current hospitalist the bilateral lower extremity appears to be substantial. Patient's blood pressure is low normotensive measured as 95/59. Nurse gave the typical oral home dose of furosmide 20 mg daily in the AM. However, patient may benefit from more Lasix. The hospital notes in [place] past reports that patient's is a not a anticoagulation candidate because of history of falls. His leg swelling does not help with ambulation and the swelling increases risks of inflammation or leg cellulitus. At this time, hospitalist to schedule Lasix as 20 mg IV TID starting at 2 PM on 07/19/2020. Cardiology consult also pending. -continue current ceftriaxone and Doxycycline, PT/OT evaluations (2) Atrial fibrillation with RVR: -admission EKG with A. fib with RVR with HR of 117. Previously admitted with atrial fibrillation in July 2019 and converted to sinus rhythm at that time after IV fluids and Cardizem -admitting physician on 07/19/2020 increased home dose metoprolol tartrate to 25mg BID. PRN IV Lopressor 2.5mg Q6H for HR >110. Admitting team also reported that they "Discussed anticoagulation with cardiology, who feel patient is a poor candidate for anticoagulation due to dementia, fall risk and likely chronic A fib" -Monitor on telemetry (3) Diastolic dysfunction: Chronic diastolic heart failure, 2D echo in 08/12 with EF 60-65%, normal wall motion. Grade 2 diastolic dysfunction, moderate aortic valve sclerosis, trace aortic regurg, moderate tricuspid regurg noted previously -Bilateral lower extremity edema reported to be chronic, per chart review. Continue home lasix (4) Dementia: Alert and oriented to self. Mood stable (5) History of CVA (cerebrovascular accident): -history left MCA CVA in 2017 with residual dysarthria. -Follows with [facility] neurology -Continue aspirin, Plavix, Lipitor (6) Hyperlipidemia: Continue statin (7) Hypertension: -on metoprolol, monitor for low blood pressures (8) CKD (chronic kidney disease), stage III: -monitor the renal function (9) Iron deficiency anemia: -Continue iron supplement and daily CBC (10) BPH (benign prostatic hyperplasia): -Continue finasteride and terazosin DVT Ppx: SQ heparin Code status: DNR/DNI per chart review as per admitting hospitalist team PCP: Jaime trejo - Admission and Anticipated Discharge Date Admission Date: July 18, 2020 Subjective The patient seen and examined at bedside. He is breathing on room air, does not appear to be short of breath. His heart rhythm on telemetry continues to be in atrial fibrillation but generally controlled in the low 100s. As consistent with patient's reported history of dementia, he is a poor historian and does not answer questions well in general - He could not tell me where he lives (notes document that patient is from [facility]). Patient's history and physical reports of chronic lower extremity edema due to venous insufficiency, however on my exam as current hospitalist the bilateral lower extremity appears to be substantial. Patient's blood pressure is low normotensive measured as 95/59. Nurse gave the typical oral home dose of furosmide 20 mg daily in the AM. However, patient may benefit from more Lasix. The hospital notes in [place] past reports that patient's is a not a anticoagulation candidate because of history of falls. His leg swelling does not help with ambulation and the swelling increases risks of inflammation or leg cellulitus. At this time, hospitalist to schedule Lasix as 20 mg IV TID starting at 2 PM on 07/19/2020. Cardiology co nsult also pending. Review of Systems Review of Systems: Unobtainable due to cognitive status Physical Exam Constitutional: comfortable Eyes: PERRL, conjunctivae normal, anicteric sclerae EOM intact bilaterally ENMT: external ear and nose normal, oropharynx normal Neck: normal visual inspection Cardiovascular: Rate/Rhythm: + irregularly irregular (heart rates in the low 100s) Gastrointestinal (Abdomen): normal bowel sounds, soft, nontender, no hepatosplenomegaly Musculoskeletal: Head/Neck/Chest: normocephalic and head atraumatic Extremities: + lower leg abnormality (bilateral lower extremity swelling, some red erythema of the skin) Neurologic: PERRL, EOMI, accommodation nl, no face palsy, no dysarthria Psychiatric: Orientation: alert Results & Data Results & Data ([facility]) Vital Signs (Past 12 Hours) Vital Signs Temp Pulse Pulse Pulse Resp BP Pulse Ox 07/19/20 07:17 36.7 C 100 H 20 95/59 L 97 07/19/20 05:00 91 H 18 95 07/19/20 03:18 36.8 C 102 H 20 119/63 98 07/19/20 00:44 127 H 07/18/20 23:42 37.0 C 89 20 152/78 H 92
[2020-07-19] MEDS ORDERED: FUROSEMIDE 20 MG TAB PO SCH (09:00)
[2020-07-19] MEDS ORDERED: METOPROLOL TARTRATE 25 MG TAB PO STA (10:15)
--- NOTE | 2020-07-19 10:25 | Cardiology Consultation ---
Date of Consultation July 19, 2020 Assessment & Plan (1) Atrial fibrillation with rapid ventricular response: (2) Cellulitis: (3) Dementia: (4) Anemia: 89-year-old patient admitted with weakness and cellulitis. ECG/telemetry demonstrates atrial fibrillation with rapid ventricular response. Patient is unaware of his dysrhythmia. He is not a candidate for long-term anticoagulation due to dementia, fall risk with visible ecchymosis, chronic anemia, and frailty. Recommend rate control strategy. He did not receive a.m. dose of metoprolol. I have ordered a 25 mg dose to be given now. Continue metoprolol tartrate 25 mg twice daily. Continue low-dose aspirin 81 mg daily. He was prescribed dual antiplatelet therapy in the setting of cerebrovascular accident by neurology. Continue gentle IV diuretic therapy with furosemide as ordered. Follow daily weight, fluid balance, edema, GFR, and electrolytes. Thank you for allowing to participate in the care of your patient. History of Present Illness Reason for Consultation: Atrial fibrillation with rapid ventricular response Requesting Physician: Dr. Lopez Attending Physician: Sonny Lopez MD History of Present Illness 89-year-old patient presented from [facility] with weakness and worsening lower extremity edema. Atrial fibrillation with rapid ventricular response noted on admission. Patient diagnosed with lower extremity cellulitis. Previously evaluated for atrial fibrillation in 2019 and deemed not a candidate for chronic anticoagulation due to dementia, fall risk, frailty, and anemia. Patient seen and examined at the bedside. He is a poor historian due to underlying dementia. He is oriented to person only. Denies chest pain or palpitations. No lightheadedness, dizziness, syncope, or near syncope. Moves all extremities. There are visible bilateral upper extremity ecchymosis as well as ecchymosis involving his posterior right shoulder. A.m. dose of metoprolol was not given due to a systolic blood pressure of 95mmHg. Allergies Allergy/AdvReac Type Severity Reaction Status Date / Time No Known Allergies Allergy Unverified 07/18/20 15:00 Home Medications Medication Instructions Recorded Confirmed Type aspirin [Aspirin Low Dose] 81 mg PO QAM 05/15/18 07/18/20 History finasteride 5 mg PO QAM 05/15/18 07/18/20 History loratadine 10 mg PO QAM 05/15/18 07/18/20 History pantoprazole 40 mg PO QAM 05/15/18 07/18/20 History clopidogrel 75 mg PO QAM #90 tab 05/18/18 07/18/20 Rx atorvastatin [Lipitor] 40 mg PO QAM 11/12/18 07/18/20 History ferrous sulfate 325 mg PO BIDM #60 tab 06/09/19 07/18/20 Rx vitamin B complex 1 cap PO QAM 08/14/19 07/18/20 History terazosin 10 mg PO HS #0 cap 08/22/19 07/18/20 Rx albuterol sulfate 2 puff INHALATION Q4H PRN 07/18/20 07/18/20 History furosemide 20 mg PO QAM 07/18/20 07/18/20 History metoprolol tartrate 12.5 mg PO BID 07/18/20 07/18/20 History Patient History Medical History Anemia BPH (benign prostatic hyperplasia) CKD (chronic kidney disease), stage III Diastolic dysfunction History of ischemic left MCA stroke Hyperlipidemia Hypertension Surgical History History of hernia surgery (2014) History of shoulder surgery Hx of cataract surgery (2013) Family History Other Hypertension Social History Smoking Status: Unknown if ever smoked Hx Alcohol Use: No Hx Substance Use: No Preferred Language: Maori Communication Ability: Impaired 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 Beliefs That Will Affect Care: None marital status: Current Living Situation: Senior Living Current Living Situation Comment: [facility] current occupational status: retired Other Information That Helps Us Care for You: No Feels Safe at Home: Yes Safety Concerns: Feels Safe At This Time Assistive Devices: Glasses and Walker Review of Systems Review of Systems: Unobtainable due to cognitive status Physical Exam Constitutional: well developed, well nourished and + obese Respiratory: no respiratory distress and no labored breathing Auscultation: lungs clear to auscultation bilaterally; no crackles, no rales, no rhonchi and no wheezes Cardiovascular: Rate/Rhythm: + tachycardic and + irregularly irregular Heart Sounds: normal S1, normal S2 and + murmur (2/6 systolic murmur heard best at the cardiac base) Vessels: no JVD and no carotid bruit Extremities: + edema (Bilateral lower extremity pretibial edema with erythema) Gastrointestinal (Abdomen): Inspection/Auscultation: normal bowel sounds; abdomen not distended Percussion/Palpation: abdomen soft; abdomen nontender, no guarding and abdomen not rigid Skin: no rashes, warm and dry Neurologic: moves all extremities and + confused; no focal motor deficits Motor/Sensory: no tremor Results & Data ([facility]) Vital Signs (Past 12 Hours) Vital Signs Temp Pulse Pulse Pulse Resp BP Pulse Ox 07/19/20 07:17 36.7 C 100 H 20 95/59 L 97 07/19/20 05:00 91 H 18 95 07/19/20 03:18 36.8 C 102 H 20 119/63 98 07/19/20 00:44 127 H 07/18/20 23:42 37.0 C 89 20 152/78 H 92 (1) Cellulitis Laterality: unspecified laterality Site of cellulitis: extremity Site of cellulitis of extremity: lower extremity Qualified Code(s): L03.119 - Cellulitis of unspecified part of limb
[2020-07-19] MEDS: FUROSEMIDE 20 MG in SYRINGE 0 ML IV SCH ×2 (14:15→20:13)
[2020-07-19] MEDS: cefTRIAXone SODIUM 2,000 MG in DEXTROSE 5% 50 ML IV SCH (16:37)
[2020-07-19] MEDS: TERAZOSIN HCL 5 MG CAP PO SCH (20:09)
[2020-07-20] MEDS: DOXYCYCLINE HYCLATE 100 MG in DEXTROSE 5% 100 ML IV SCH (05:53)
[2020-07-20 08:02] LABS: Hematocrit (blood only) 27.4 % (42-52); Hemoglobin 8.6 g/dL (14.0-18.0); Mean Corpuscular Hemoglobin 29.7 pg (25-34); Mean Corpuscular Hgb Conc 31.4 g/dL (32-36); Mean Corpuscular Volume 94.5 fL (80-100); Mean Platelet Volume 10.8 fL (7.4-10.4); Platelet Count 186 K/uL (130-400); RDW Coefficient of Variation 16.7 % (11.5-14.5); RDW Standard Deviation 58.2 fL (36.4-46.3); White Blood Count 4.87 K/uL (4.8-10.8)
[2020-07-20] MEDS: ATORVASTATIN 40 MG TAB PO SCH (08:21)
[2020-07-20] MEDS: METOPROLOL TARTRATE 25 MG TAB PO SCH ×2 (08:21→21:39)
[2020-07-20] MEDS: ASPIRIN 81 MG ECTAB PO SCH (08:21)
[2020-07-20] MEDS: VITAMIN B COMPLEX TAB PO SCH (08:21)
[2020-07-20] MEDS: PANTOprazole 40 MG TAB PO SCH (08:22)
[2020-07-20] MEDS: CLOPIDOGREL BISULFATE 75 MG TAB PO SCH (08:22)
[2020-07-20] MEDS: FERROUS SULFATE 325 MG TAB PO SCH ×2 (08:22→16:49)
[2020-07-20] MEDS: FUROSEMIDE 20 MG in SYRINGE 0 ML IV SCH (08:22)
[2020-07-20] MEDS: HEPARIN SOD 5,000 UNIT/0.5 ML VIAL SQ SCH ×2 (08:26→21:39)
[2020-07-20] MEDS: FINASTERIDE 5 MG TAB PO SCH (08:27)
[2020-07-20 09:02] LABS: Calcium 7.5 mg/dl (8.5-10.1); Creatinine Clr Calc Pharmacy 33.1 ml/min; Est GFR (African American) 35.7; Est GFR (Non-African American) 30.8; Magnesium 2.2 mg/dl (1.8-2.4); Potassium 3.4 mmol/L (3.5-5.1)
--- NOTE | 2020-07-20 10:32 | Hospitalist Progress Note ---
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 Some improvement with topical antibiotic cream. Patient was given Rocephin in ED and while continue Rocephin, doxycycline also added. -No evidence of deep venous thrombus within the bilateral lower extremities although venous doppler study on 07/18/2020 compromised by suboptimal penetration. -07/19/2020 AM hospitalist evaluation The patient seen and examined at bedside. He is breathing on room air, does not appear to be short of breath. His heart rhythm on telemetry continues to be in atrial fibrillation but generally controlled in the low 100s. As consistent with patient's reported history of dementia, he is a poor historian and does not answer questions well in general - He could not tell me where he lives (notes document that patient is from [facility]). Patient's history and physical reports of chronic lower extremity edema due to venous insufficiency, however on my exam as current hospitalist the bilateral lower extremity appears to be substantial. Patient's blood pressure is low normotensive measured as 95/59. Nurse gave the typical oral home dose of furosmide 20 mg daily in the AM. However, patient may benefit from more Lasix. The hospital notes in [place] past reports that patient's is a not a anticoagulation candidate because of history of falls. His leg swelling does not help with ambulation and the swelling increases risks of inflammation or leg cellulitus. At this time, hospitalist to schedule Lasix as 20 mg IV TID starting at 2 PM on 07/19/2020. continue current ceftriaxone and Doxycycline, PT/OT evaluations 07/20/2020 AM hospitalist evaluation Patient seen and examined while sitting up in wheelchair when therapy service also came to the room. Patient's cordoba with dark orange urine suggestive of hematuria. Patient has dementia, patient cannot participate in full review of systems, and when specifically asked whether he he bladder or belly pain, he cannot give a good verbal answer. He is not in distress. He is breathing on room air. On telemetry he continues to be in atrial fibrillation but better heart rate control compared to yesterday as he is currently on metoprolol 25 mg BID.The lower extremities appear to have less erythema compared to yesterday but still lot of swelling of lower extremities. Plan will be to discontinue the cordoba and send urine for analysis. Likely that hematuria orion be from trauma due to cordoba use. Bladder scan q shift to rule out any urinary retention. The creatinine is rising to 1.9 so Lasix will be switched from TID to BID dosing of 20 mg IV Lasix. Antibiotics switch from ceftriaxone IV and Doxycycline IV to oral Keflex and oral Doxycycline to reduce IV fluid volume from medications. (2) Atrial fibrillation with RVR: -admission EKG with A. fib with RVR with HR of 117. Previously admitted with atrial fibrillation in July 2019 and converted to sinus rhythm at that time after IV fluids and Cardizem -admitting physician on 07/19/2020 increased home dose metoprolol tartrate to 25mg BID. PRN IV Lopressor 2.5mg Q6H for HR >110. Admitting team also reported that they "Discussed anticoagulation with cardiology, who feel patient is a poor candidate for anticoagulation due to dementia, fall risk and likely chronic A fib" -Monitor on telemetry -currently rate controlled with metoprolol 25 mg BID (3) Diastolic dysfunction: Chronic diastolic heart failure, 2D echo in 08/12 with EF 60-65%, normal wall motion. Grade 2 diastolic dysfunction, moderate aortic valve sclerosis, trace aortic regurg, moderate tricuspid regurg noted previously -Bilateral lower extremity edema reported to be chronic, per chart review. -Lasix management as above (4) Dementia: -Alert and oriented to self. 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 -Follows with [facility] neurology -Continue aspirin, Plavix, Lipitor (6) Hyperlipidemia: Continue statin (7) Hypertension: -on metoprolol (8) CKD (chronic kidney disease), stage III: -monitor the renal function (9) Iron deficiency anemia: -Continue iron supplement and daily CBC (10) BPH (benign prostatic hyperplasia): -Continue finasteride and terazosin DVT Ppx: SQ heparin Code status: DNR/DNI per chart review as per admitting hospitalist team PCP: Jaime trejo Admission and Anticipated Discharge Date Admission Date: July 18, 2020 Subjective Patient seen and examined while sitting up in wheelchair when therapy service also came to the room. Patient's cordoba with dark orange urine suggestive of hematuria. Patient has dementia, patient cannot participate in full review of systems, and when specifically asked whether he he bladder or belly pain, he cannot give a good verbal answer. He is not in distress. He is breathing on room air. On telemetry he continues to be in atrial fibrillation but better heart rate control compared to yesterday as he is currently on metoprolol 25 mg BID.The lower extremities appear to have less erythema compared to yesterday but still lot of swelling of lower extremities. Plan will be to discontinue the cordoba and send urine for analysis. Likely that hematuria orion be from trauma due to cordoba use. Bladder scan q shift to rule out any urinary retention. The creatinine is rising to 1.9 so Lasix will be switched from TID to BID dosing of 20 mg IV Lasix. Antibiotics switch from ceftriaxone IV and Doxycycline IV to oral Keflex and oral Doxycycline to reduce IV fluid volume from medications. Review of Systems Review of Systems: Unobtainable due to cognitive status Physical Exam Constitutional: comfortable Eyes: PERRL, conjunctivae normal, anicteric sclerae EOM intact bilaterally ENMT: external ear and nose normal, oropharynx normal Neck: normal visual inspection Cardiovascular: Rate/Rhythm: regular rate and + irregularly irregular Gastrointestinal (Abdomen): normal bowel sounds, soft, nontender, no hepatosplenomegaly Musculoskeletal: Head/Neck/Chest: normocephalic and head atraumatic Extremities: + lower leg abnormality (bilateral lower extremity swelling) Neurologic: PERRL, EOMI, accommodation nl, no face palsy, no dysarthria Psychiatric: Orientation: alert Genitourinary: + penis abnormality (cordoba with urine appears darkish orange suggestive of hematuria) Results & Data Results & Data ([facility]) Vital Signs (Past 12 Hours) Vital Signs Temp Pulse Pulse Resp BP BP Pulse Ox 07/20/20 09:34 97 07/20/20 07:17 36.8 C 87 18 109/62 96 07/20/20 03:12 36.9 C 94 H 16 105/62 96 07/20/20 00:00 103 H 07/19/20 23:46 37.0 C 109 H 23 105/61 96
--- NOTE | 2020-07-20 11:33 | Cardiology Progress Note ---
Date of Service July 20, 2020 Assessment & Plan (1) Atrial fibrillation with rapid ventricular response: (2) Cellulitis: (3) Dementia: (4) Anemia: Fluid balance minimally negative over the past 24 hours. Edema unchanged. Recommend titration of Lasix to 40 mg twice daily. Heart rate improved with titration of metoprolol. Continue 25 mg twice daily. He is not a candidate for long-term anticoagulation due to dementia, fall risk with visible ecchymosis, chronic anemia, and frailty. Admission and Anticipated Discharge Date Admission Date: July 18, 2020 Subjective Patient seen and examined at the bedside. Lower extremity edema unchanged. Fluid balance -90 cc over the past 24 hours. Patient is a poor historian due to underlying dementia. Telemetry reveals atrial fibrillation with a heart rate averaging in the 80s. Patient denies palpitations or chest discomfort. Review of Systems Review of Systems: Unobtainable due to cognitive status Physical Exam Constitutional: well developed, well nourished and + obese Respiratory: no respiratory distress and no labored breathing Auscultation: lungs clear to auscultation bilaterally; no crackles, no rales, no rhonchi and no wheezes Cardiovascular: Rate/Rhythm: + tachycardic and + irregularly irregular Heart Sounds: normal S1, normal S2 and + murmur (2/6 systolic murmur heard best at the cardiac base) Vessels: no JVD and no carotid bruit Extremities: + edema (Bilateral lower extremity pretibial edema with erythema) Gastrointestinal (Abdomen): Inspection/Auscultation: normal bowel sounds; abdomen not distended Percussion/Palpation: abdomen soft; abdomen nontender, no guarding and abdomen not rigid Skin: no rashes, warm and dry Neurologic: moves all extremities and + confused; no focal motor deficits Motor/Sensory: no tremor Results & Data ([facility]) Vital Signs (Past 12 Hours) Vital Signs Temp Pulse Pulse Resp BP BP Pulse Ox 07/20/20 11:12 36.4 C L 69 20 116/60 97 07/20/20 09:34 97 07/20/20 07:17 36.8 C 87 18 109/62 96 07/20/20 03:12 36.9 C 94 H 16 105/62 96 07/20/20 00:00 103 H 07/19/20 23:46 37.0 C 109 H 23 105/61 96 (1) Cellulitis Laterality: unspecified laterality Site of cellulitis: extremity Site of cellulitis of extremity: lower extremity Qualified Code(s): L03.119 - Cellulitis of unspecified part of limb
[2020-07-20] MEDS: cephALEXin 500 MG CAP PO SCH ×2 (13:17→21:39)
[2020-07-20] MEDS: LORATADINE 10 MG TAB PO SCH (13:17)
[2020-07-20] MEDS: cefTRIAXone SODIUM 2,000 MG in DEXTROSE 5% 50 ML IV SCH (16:48)
[2020-07-20 18:59] LABS: Appearance Urine Clear (Clear); Bilirubin Urine Negative (Negative); Blood Urine 3+ (Negative); Color Urine Amber; Glucose Urine UA Negative (Negative); Ketones Urine Negative (Negative); Leukocyte Esterase Urine Trace (Negative); Nitrite Urine Negative (Negative); Protein Urine 2+ (Negative); Urobilinogen Urine Negative (Negative)
[2020-07-20 19:02] LABS: RBC Urine >30 /hpf (0-4)
[2020-07-20 19:03] LABS: Bacteria Urine 1+ (Negative)
[2020-07-20 19:06] LABS: Mucus Urine Present (None Prsent)
[2020-07-20] MEDS: ALBUTEROL HFA 8 GM INHALER INH PRN (19:06)
[2020-07-20] MEDS ORDERED: FUROSEMIDE 20 MG in SYRINGE 0 ML IV SCH (21:00)
[2020-07-20] MEDS: FUROSEMIDE 40 MG in SYRINGE 0 ML IV SCH (21:39)
[2020-07-20] MEDS: DOXYCYCLINE HYCLATE 100 MG CAP PO SCH (21:39)
[2020-07-20] MEDS: TERAZOSIN HCL 5 MG CAP PO SCH (21:39)
--- NOTE | 2020-07-20 22:18 | Electrocardiogram Report ---
Test Reason : Blood Pressure : / mmHG Vent. Rate : 094 BPM Atrial Rate : 102 BPM P-R Int : 000 ms QRS Dur : 092 ms QT Int : 302 ms P-R-T Axes : 000 -37 130 degrees QTc Int : 377 ms Atrial fibrillation Left axis deviation Nonspecific T wave abnormality Abnormal ECG When compared with ECG of 18-JUL-2020 13:41, No significant change was found Confirmed by Maldonado Zelaya ([id number]) on 07/20/2020 10:17:56 PM Referred By: [facility] Confirmed By:Maldonado Zelaya
[2020-07-21] MEDS: DOXYCYCLINE HYCLATE 100 MG CAP PO SCH ×2 (08:17→20:31)
[2020-07-21] MEDS: METOPROLOL TARTRATE 25 MG TAB PO SCH ×2 (08:17→20:31)
[2020-07-21] MEDS: FUROSEMIDE 40 MG in SYRINGE 0 ML IV SCH ×2 (08:18→20:29)
[2020-07-21] MEDS: ASPIRIN 81 MG ECTAB PO SCH (08:18)
[2020-07-21] MEDS: FERROUS SULFATE 325 MG TAB PO SCH ×2 (08:18→16:48)
[2020-07-21] MEDS: CLOPIDOGREL BISULFATE 75 MG TAB PO SCH (08:19)
[2020-07-21] MEDS: PANTOprazole 40 MG TAB PO SCH (08:19)
[2020-07-21] MEDS: FINASTERIDE 5 MG TAB PO SCH (08:19)
[2020-07-21] MEDS: ATORVASTATIN 40 MG TAB PO SCH (08:21)
[2020-07-21] MEDS: LORATADINE 10 MG TAB PO SCH (08:21)
[2020-07-21] MEDS: HEPARIN SOD 5,000 UNIT/0.5 ML VIAL SQ SCH ×2 (08:22→20:30)
[2020-07-21] MEDS: VITAMIN B COMPLEX TAB PO SCH (08:22)
[2020-07-21] MEDS: cephALEXin 500 MG CAP PO SCH ×2 (08:23→20:31)
[2020-07-21 08:34] LABS: Albumin Level 2.7 gm/dl (3.4-5.0); BUN Creatinine Ratio 22.5 (10-20); Calcium 7.9 mg/dl (8.5-10.1); Creatinine Clr Calc Pharmacy 36.7 ml/min; Est GFR (African American) 40.8; Est GFR (Non-African American) 35.2; Magnesium 2.1 mg/dl (1.8-2.4); Potassium 3.7 mmol/L (3.5-5.1)
[2020-07-21 08:38] LABS: Albumin Globulin Ratio 0.8 (0.9-2); Bilirubin,Total 0.6 mg/dl (0.2-1); Globulin 3.5 gm/dl (2.5-4.0); Total Protein 6.2 gm/dl (6.4-8.2)
--- NOTE | 2020-07-21 09:14 | Hospitalist Progress Note ---
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 Some improvement with topical antibiotic cream. Patient was given Rocephin in ED and while continue Rocephin, doxycycline also added. -No evidence of deep venous thrombus within the bilateral lower extremities although venous doppler study on 07/18/2020 compromised by suboptimal penetration. -07/19/2020 AM hospitalist evaluation The patient seen and examined at bedside. He is breathing on room air, does not appear to be short of breath. His heart rhythm on telemetry continues to be in atrial fibrillation but generally controlled in the low 100s. As consistent with patient's reported history of dementia, he is a poor historian and does not answer questions well in general - He could not tell me where he lives (notes document that patient is from [facility]). Patient's history and physical reports of chronic lower extremity edema due to venous insufficiency, however on my exam as current hospitalist the bilateral lower extremity appears to be substantial. Patient's blood pressure is low normotensive measured as 95/59. Nurse gave the typical oral home dose of furosmide 20 mg daily in the AM. However, patient may benefit from more Lasix. The hospital notes in [place] past reports that patient's is a not a anticoagulation candidate because of history of falls. His leg swelling does not help with ambulation and the swelling increases risks of inflammation or leg cellulitus. At this time, hospitalist to schedule Lasix as 20 mg IV TID starting at 2 PM on 07/19/2020. continue current ceftriaxone and Doxycycline, PT/OT evaluations -07/20/2020: Patient's cordoba with dark orange urine suggestive of hematuria. discussed with cordoba removal from nurse who reported patient was tugging on cordoba but condom cath not likely able to be placed and so cordoba was retained while on increased IV Lasix 40 mg IV BID as per cardiology service. creatinine noted to be 1.9 in the AM labs -07/21/2020 Patient's cordoba with yellow urine draining and while on the current Lasix IV 40 mg BID the creatinine on AM labs improved of 1.7. Can Continue current cordoba use and IV Lasix dosing. Patient continues to have bilateral lower extremity with some redness of the shins still persistent. He is talking more to physician today and he denies other symptoms on review of systems - continues to be on room air breathing comfortably and he denies any acute pain anywhere. (2) Atrial fibrillation with RVR: -admission EKG with A. fib with RVR with HR of 117. Previously admitted with atrial fibrillation in July 2019 and converted to sinus rhythm at that time after IV fluids and Cardizem -admitting physician on 07/19/2020 increased home dose metoprolol tartrate to 25mg BID. PRN IV Lopressor 2.5mg Q6H for HR >110. Admitting team also reported that they "Discussed anticoagulation with cardiology, who feel patient is a poor candidate for anticoagulation due to dementia, fall risk and likely chronic A fib" -Monitor on telemetry -currently rate controlled with metoprolol 25 mg BID (3) Diastolic dysfunction: Chronic diastolic heart failure, 2D echo in 08/12 with EF 60-65%, normal wall motion. Grade 2 diastolic dysfunction, moderate aortic valve sclerosis, trace aortic regurg, moderate tricuspid regurg noted previously -Bilateral lower extremity edema reported to be chronic, per chart review. -Lasix management as above (4) Dementia: -Alert and oriented to self. 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 -Follows with [facility] neurology -Continue aspirin, Plavix, Lipitor (6) Hyperlipidemia: Continue statin (7) Hypertension: -on metoprolol (8) CKD (chronic kidney disease), stage III: -monitor the renal function (9) Iron deficiency anemia: -Continue iron supplement and daily CBC (10) BPH (benign prostatic hyperplasia): -Continue finasteride and terazosin DVT Ppx: SQ heparin Code status: DNR/DNI per chart review as per admitting hospitalist team PCP: Jaime dexter Admission and Anticipated Discharge Date Admission Date: July 18, 2020 Subjective -07/21/2020 Patient's cordoba with yellow urine draining and while on the current Lasix IV 40 mg BID the creatinine on AM labs improved of 1.7. Can Continue current cordoba use and IV Lasix dosing. Patient continues to have bilateral lower extremity with some redness of the shins still persistent. He is talking more to physician today and he denies other symptoms on review of systems - continues to be on room air breathing comfortably and he denies any acute pain anywhere. Review of Systems Review of Systems: All systems reviewed & are unremarkable except as noted in Subjective Physical Exam Constitutional: comfortable Eyes: PERRL, conjunctivae normal, anicteric sclerae EOM intact bilaterally ENMT: external ear and nose normal, oropharynx normal Neck: normal visual inspection Cardiovascular: Rate/Rhythm: regular rate and + irregularly irregular Gastrointestinal (Abdomen): normal bowel sounds, soft, nontender, no hepatosplenomegaly Musculoskeletal: Head/Neck/Chest: normocephalic and head atraumatic Extremities: + lower leg abnormality (bilateral lower extremity swelling) Neurologic: PERRL, EOMI, accommodation nl, no face palsy, no dysarthria Psychiatric: Orientation: alert Genitourinary: + penis abnormality (cordoba with yellow urine)) Results & Data Results & Data ([facility]) Vital Signs (Past 12 Hours) Vital Signs Temp Pulse Pulse Resp BP BP Pulse Ox 07/21/20 08:18 37.1 C 74 19 97/60 L 99 07/21/20 03:40 37.0 C 86 19 98/60 L 94 07/21/20 01:43 78 07/20/20 22:54 36.6 C 80 19 95/57 L 95 07/20/20 21:38 97 H 112/67
--- NOTE | 2020-07-21 12:00 | Cardiology Progress Note ---
Date of Service July 21, 2020 Assessment & Plan (1) Atrial fibrillation with rapid ventricular response: Heart rate improved with titration of metoprolol. Continue 25 mg twice daily. He is not a candidate for long-term anticoagulation due to dementia, fall risk with visible ecchymosis, chronic anemia, and frailty. (2) Diastolic dysfunction: Bilateral lower extremity edema present. Patient has responded to increased diuretics and rate slowing with greater than 2 L diuresis. Renal function remaining stable would continue as ordered (3) Cellulitis: (4) Dementia: (5) Anemia: Admission and Anticipated Discharge Date Admission Date: July 18, 2020 Subjective Patient seen and examined, chart, medications, telemetry reviewed. No accurate history obtained due to underlying dementia. Patient denies acute complaints. Telemetry demonstrates persistent atrial fibrillation though with good rate control. Review of Systems Review of Systems: Unobtainable due to cognitive status Physical Exam Constitutional: well developed, well nourished and + obese Respiratory: no respiratory distress and no labored breathing Auscultation: lungs clear to auscultation bilaterally; no crackles, no rales, no rhonchi and no wheezes Cardiovascular: Rate/Rhythm: + irregularly irregular Heart Sounds: normal S1, normal S2 and + murmur (2/6 systolic murmur heard best at the cardiac base) Vessels: no JVD and no carotid bruit Extremities: + edema (Bilateral lower extremity pretibial edema with erythema, 3+) Gastrointestinal (Abdomen): Inspection/Auscultation: normal bowel sounds; abdomen not distended Percussion/Palpation: abdomen soft; abdomen nontender, no guarding and abdomen not rigid Skin: no rashes, warm and dry Neurologic: moves all extremities and + confused; no focal motor deficits Motor/Sensory: no tremor Results & Data ([facility]) Vital Signs (Past 12 Hours) Vital Signs Temp Pulse Pulse Resp BP BP Pulse Ox 07/21/20 08:18 37.1 C 74 19 97/60 L 99 07/21/20 03:40 37.0 C 86 19 98/60 L 94 07/21/20 01:43 78 Laboratory Results Laboratory Results - last 24 hr 07/20/20 07/21/20 18:38 07:40 Sodium 140 Potassium 3.7 Chloride 105 Carbon Dioxide 29 Anion Gap 6.0 BUN 38 H Creatinine 1.70 H Est Cr Clr Drug Dosing 36.7 Est GFR ( Amer) 40.8 Est GFR (Non-Af Amer) 35.2 BUN/Creatinine Ratio 22.5 H Glucose 92 Calcium 7.9 L Magnesium 2.1 Total Bilirubin 0.6 AST 26 ALT 13 Alkaline Phosphatase 63 Total Protein 6.2 L Albumin 2.7 L Globulin 3.5 Albumin/Globulin Ratio 0.8 L Urine Color [place] Urine Appearance Clear Urine pH 5.0 Ur Specific [place] 1.020 Urine Protein 2+ H Urine Glucose (UA) Negative Urine Ketones Negative Urine Blood 3+ H Urine Nitrite Negative Urine Bilirubin Negative Urine Urobilinogen Negative Ur Leukocyte Esterase Trace H Urine RBC >30 H Urine WBC 10-30 H Ur Epithelial Cells 5-10 H Urine Bacteria 1+ H Urine Mucus Present A (1) Cellulitis Laterality: unspecified laterality Site of cellulitis: extremity Site of cellulitis of extremity: lower extremity Qualified Code(s): L03.119 - Cellulitis of unspecified part of limb
[2020-07-21] MEDS: TERAZOSIN HCL 5 MG CAP PO SCH (20:30)
[2020-07-22 08:19] LABS: Basophils # (auto) 0.01 K/uL (0-0.2); Basophils % (auto) 0.2 %; Eosinophils # (auto) 0.41 K/uL (0-0.5); Eosinophils % (auto) 9.1 %; Hematocrit (blood only) 27.7 % (42-52); Hemoglobin 8.7 g/dL (14.0-18.0); Immature Granulocytes # (auto) 0.02 K/uL (0.00-0.02); Immature Granulocytes % (auto) 0.4 %; Lymphocytes # (auto) 0.28 K/uL (1.2-3.4); Lymphocytes % (auto) 6.2 %; Mean Corpuscular Hemoglobin 29.6 pg (25-34); Mean Corpuscular Hgb Conc 31.4 g/dL (32-36); Mean Corpuscular Volume 94.2 fL (80-100); Mean Platelet Volume 9.9 fL (7.4-10.4); Monocytes % (auto) 15.6 %; Neutrophils # (auto) 3.08 K/uL (1.4-6.5); Neutrophils % (auto) 68.5 %; Platelet Count 215 K/uL (130-400); RDW Coefficient of Variation 16.2 % (11.5-14.5); RDW Standard Deviation 56.1 fL (36.4-46.3); Red Blood Count 2.94 M/uL (4.7-6.1)
[2020-07-22 08:39] LABS: BUN Creatinine Ratio 23.9 (10-20); Creatinine Clr Calc Pharmacy 38.2 ml/min; Est GFR (Non-African American) 37.1; Magnesium 2.1 mg/dl (1.8-2.4); Potassium 3.3 mmol/L (3.5-5.1)
[2020-07-22] MEDS ORDERED: POTASSIUM CHLORIDE CRTAB 20 MEQ TABCR PO STA (09:15)
--- NOTE | 2020-07-22 09:24 | Hospitalist Progress Note ---
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 Some improvement with topical antibiotic cream. Patient was given Rocephin in ED and while continue Rocephin, doxycycline also added. -No evidence of deep venous thrombus within the bilateral lower extremities although venous doppler study on 07/18/2020 compromised by suboptimal penetration. -07/19/2020 AM hospitalist evaluation The patient seen and examined at bedside. He is breathing on room air, does not appear to be short of breath. His heart rhythm on telemetry continues to be in atrial fibrillation but generally controlled in the low 100s. As consistent with patient's reported history of dementia, he is a poor historian and does not answer questions well in general - He could not tell me where he lives (notes document that patient is from [facility]). Patient's history and physical reports of chronic lower extremity edema due to venous insufficiency, however on my exam as current hospitalist the bilateral lower extremity appears to be substantial. Patient's blood pressure is low normotensive measured as 95/59. Nurse gave the typical oral home dose of furosmide 20 mg daily in the AM. However, patient may benefit from more Lasix. The hospital notes in the past reports that patient's is a not a anticoagulation candidate because of history of falls. His leg swelling does not help with ambulation and the swelling increases risks of inflammation or leg cellulitus. At this time, hospitalist to schedule Lasix as 20 mg IV TID starting at 2 PM on 07/19/2020. continue current ceftriaxone and Doxycycline, PT/OT evaluations -07/20/2020: Patient's cordoba with dark orange urine suggestive of hematuria. discussed with cordoba removal from nurse who reported patient was tugging on cordoba but condom cath not likely able to be placed and so cordoba was retained while on increased IV Lasix 40 mg IV BID as per cardiology service. creatinine noted to be 1.9 in the AM labs. Transitioned from IV ceftriaxone daily and IV Doxycyline BID to oral Keflex and oral Doxycycline to reduce IV fluid volume -07/21/2020 Patient's cordoba with yellow urine draining and while on the current Lasix IV 40 mg BID the creatinine on AM labs improved of 1.7. Can Continue current cordoba use and IV Lasix dosing. Patient continues to have bilateral lower extremity with some redness of the shins still persistent. continue oral antibiotics. He is talking more to physician today and he denies other symptoms on review of systems - continues to be on room air breathing comfortably and he denies any acute pain anywhere. -07/22/2020: Patient continues to have cordoba with yellow draining urine. serum potassium 3.3 and additional potassium ordered. creatinine 1.63. can continue current IV Lasix 40 mg BID dosing. Patient continues to have bilateral lower extremity with some redness of the shins still persistent. continue oral antibiotics. He denies other symptoms on review of systems - continues to be on room air breathing comfortably and he denies any acute pain anywhere (2) Atrial fibrillation with RVR: -admission EKG with A. fib with RVR with HR of 117. Previously admitted with atrial fibrillation in July 2019 and converted to sinus rhythm at that time after IV fluids and Cardizem -admitting physician on 07/19/2020 increased home dose metoprolol tartrate to 25mg BID. PRN IV Lopressor 2.5mg Q6H for HR >110. Admitting team also reported that they "Discussed anticoagulation with cardiology, who feel patient is a poor candidate for anticoagulation due to dementia, fall risk and likely chronic A fib" -Monitor on telemetry -currently rate controlled with metoprolol 25 mg BID (3) Diastolic dysfunction: Chronic diastolic heart failure, 2D echo in 08/12 with EF 60-65%, normal wall motion. Grade 2 diastolic dysfunction, moderate aortic valve sclerosis, trace aortic regurg, moderate tricuspid regurg noted previously -Bilateral lower extremity edema reported to be chronic, per chart review. -Lasix management as above (4) Dementia: -Alert and oriented to self. 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 -Follows with [facility] neurology -Continue aspirin, Plavix, Lipitor (6) Hyperlipidemia: Continue statin (7) Hypertension: -on metoprolol (8) CKD (chronic kidney disease), stage III: -monitoring the renal function (9) Iron deficiency anemia: -Continue iron supplement and daily CBC (10) BPH (benign prostatic hyperplasia): -Continue finasteride and terazosin DVT Ppx: SQ heparin Code status: DNR/DNI per chart review as per admitting hospitalist team PCP: Jaime trejo Admission and Anticipated Discharge Date Admission Date: July 18, 2020 Subjective -07/22/2020: Patient continues to have cordoba with yellow draining urine. serum potassium 3.3 and additional potassium ordered. creatinine 1.63. can continue current IV Lasix 40 mg BID dosing. Patient continues to have bilateral lower extremity with some redness of the shins still persistent. continue oral antibiotics. He denies other symptoms on review of systems - continues to be on room air breathing comfortably and he denies any acute pain anywhere no dizziness. no nausea. no vomiting. no other symptoms as per patient Review of Systems Review of Systems: All systems reviewed & are unremarkable except as noted in Subjective Physical Exam Constitutional: comfortable Eyes: PERRL, conjunctivae normal, anicteric sclerae EOM intact bilaterally ENMT: external ear and nose normal, oropharynx normal Neck: normal visual inspection Respiratory: normal respiratory effort Cardiovascular: Rate/Rhythm: regular rate and + irregularly irregular Gastrointestinal (Abdomen): normal bowel sounds, soft, nontender, no hepatosplenomegaly Musculoskeletal: Head/Neck/Chest: normocephalic and head atraumatic Extremities: + lower leg abnormality (bilateral lower extremity swelling) Neurologic: PERRL, EOMI, accommodation nl, no face palsy, no dysarthria Psychiatric: Orientation: alert Genitourinary: + penis abnormality (cordoba with yellow urine)) Results & Data Results & Data ([facility]) Vital Signs (Past 12 Hours) Vital Signs Temp Pulse Resp BP BP Pulse Ox 07/22/20 07:22 36.6 C 84 20 98/60 L 98 07/22/20 04:21 36.5 C 101 H 16 104/58 L 95 07/21/20 23:35 36.8 C 92 H 18 96/61 L 96
[2020-07-22] MEDS: FUROSEMIDE 40 MG in SYRINGE 0 ML IV SCH ×2 (09:40→21:02)
[2020-07-22] MEDS: cephALEXin 500 MG CAP PO SCH ×2 (09:41→21:03)
[2020-07-22] MEDS: DOXYCYCLINE HYCLATE 100 MG CAP PO SCH ×2 (09:41→21:02)
[2020-07-22] MEDS: METOPROLOL TARTRATE 25 MG TAB PO SCH ×2 (09:41→21:03)
[2020-07-22] MEDS: FERROUS SULFATE 325 MG TAB PO SCH ×2 (09:42→17:20)
[2020-07-22] MEDS: ATORVASTATIN 40 MG TAB PO SCH (09:42)
[2020-07-22] MEDS: ASPIRIN 81 MG ECTAB PO SCH (09:42)
[2020-07-22] MEDS: VITAMIN B COMPLEX TAB PO SCH (09:42)
[2020-07-22] MEDS: FINASTERIDE 5 MG TAB PO SCH (09:42)
[2020-07-22] MEDS: HEPARIN SOD 5,000 UNIT/0.5 ML VIAL SQ SCH ×2 (09:43→21:04)
[2020-07-22] MEDS: CLOPIDOGREL BISULFATE 75 MG TAB PO SCH (09:43)
[2020-07-22] MEDS: LORATADINE 10 MG TAB PO SCH (09:43)
--- NOTE | 2020-07-22 11:00 | Cardiology Progress Note ---
Date of Service July 22, 2020 Assessment & Plan (1) Atrial fibrillation with rapid ventricular response: Heart rate improved with titration of metoprolol. Continue 25 mg twice daily. He is not a candidate for long-term anticoagulation due to dementia, fall risk with visible ecchymosis, chronic anemia, and frailty. (2) Diastolic dysfunction: Bilateral lower extremity edema present but improved from day prior. Patient has responded to increased diuretics and heart rate slowing with greater than 2 L diuresis once again renal function remaining stable would continue as ordered (3) Cellulitis: (4) Dementia: (5) Anemia: Admission and Anticipated Discharge Date Admission Date: July 18, 2020 Subjective Patient seen and examined, chart, medications, telemetry reviewed. No accurate history obtained due to underlying dementia. Patient pleasantly confused, denies acute complaints. Telemetry demonstrates persistent atrial fibrillation though with good rate control. Good diuresis overnight Physical Exam Constitutional: well developed, well nourished and + obese Respiratory: no respiratory distress and no labored breathing Auscultation: lungs clear to auscultation bilaterally; no crackles, no rales, no rhonchi and no wheezes Cardiovascular: Rate/Rhythm: + irregularly irregular Heart Sounds: normal S1, normal S2 and + murmur (2/6 systolic murmur heard best at the cardiac base) Vessels: no JVD and no carotid bruit Extremities: + edema (Bilateral lower extremity pretibial edema with erythema, 23+) Gastrointestinal (Abdomen): Inspection/Auscultation: normal bowel sounds; abdomen not distended Percussion/Palpation: abdomen soft; abdomen nontender, no guarding and abdomen not rigid Skin: no rashes, warm and dry Neurologic: moves all extremities and + confused; no focal motor deficits Motor/Sensory: no tremor Results & Data ([facility]) Vital Signs (Past 12 Hours) Vital Signs Temp Pulse Resp BP BP Pulse Ox 07/22/20 09:49 78 110/63 07/22/20 07:22 36.6 C 84 20 98/60 L 98 07/22/20 04:21 36.5 C 101 H 16 104/58 L 95 07/21/20 23:35 36.8 C 92 H 18 96/61 L 96 (1) Cellulitis Laterality: unspecified laterality Site of cellulitis: extremity Site of cellulitis of extremity: lower extremity Qualified Code(s): L03.119 - Cellulitis of unspecified part of limb
[2020-07-22] MEDS: PANTOprazole 40 MG TAB PO SCH (11:10)
[2020-07-22] MEDS: TERAZOSIN HCL 5 MG CAP PO SCH (21:02)
[2020-07-23] MEDS: CLOPIDOGREL BISULFATE 75 MG TAB PO SCH (07:47)
[2020-07-23] MEDS: METOPROLOL TARTRATE 25 MG TAB PO SCH ×2 (07:47→21:27)
[2020-07-23] MEDS: FINASTERIDE 5 MG TAB PO SCH (07:48)
[2020-07-23] MEDS: ATORVASTATIN 40 MG TAB PO SCH (07:48)
[2020-07-23] MEDS: LORATADINE 10 MG TAB PO SCH (07:48)
[2020-07-23] MEDS: VITAMIN B COMPLEX TAB PO SCH (07:48)
[2020-07-23] MEDS: ASPIRIN 81 MG ECTAB PO SCH (07:48)
[2020-07-23] MEDS: PANTOprazole 40 MG TAB PO SCH (07:48)
[2020-07-23] MEDS: cephALEXin 500 MG CAP PO SCH ×2 (07:48→21:27)
[2020-07-23] MEDS: FERROUS SULFATE 325 MG TAB PO SCH ×2 (07:48→17:45)
[2020-07-23] MEDS: DOXYCYCLINE HYCLATE 100 MG CAP PO SCH ×2 (07:48→21:26)
[2020-07-23] MEDS: HEPARIN SOD 5,000 UNIT/0.5 ML VIAL SQ SCH ×2 (07:49→21:28)
[2020-07-23] MEDS: FUROSEMIDE 40 MG in SYRINGE 0 ML IV SCH (07:51)
[2020-07-23 08:35] LABS: BUN Creatinine Ratio 24.1 (10-20); Calcium 8.2 mg/dl (8.5-10.1); Creatinine Clr Calc Pharmacy 35.7 ml/min; Est GFR (Non-African American) 34.5; Potassium 3.6 mmol/L (3.5-5.1)
--- NOTE | 2020-07-23 10:44 | Hospitalist Progress Note ---
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 Some improvement with topical antibiotic cream. Patient was given Rocephin in ED and while continue Rocephin, doxycycline also added. -No evidence of deep venous thrombus within the bilateral lower extremities although venous doppler study on 07/18/2020 compromised by suboptimal penetration. -07/19/2020 AM hospitalist evaluation The patient seen and examined at bedside. He is breathing on room air, does not appear to be short of breath. His heart rhythm on telemetry continues to be in atrial fibrillation but generally controlled in the low 100s. As consistent with patient's reported history of dementia, he is a poor historian and does not answer questions well in general - He could not tell me where he lives (notes document that patient is from [facility]). Patient's history and physical reports of chronic lower extremity edema due to venous insufficiency, however on my exam as current hospitalist the bilateral lower extremity appears to be substantial. Patient's blood pressure is low normotensive measured as 95/59. Nurse gave the typical oral home dose of furosmide 20 mg daily in the AM. However, patient may benefit from more Lasix. The hospital notes in the past reports that patient's is a not a anticoagulation candidate because of history of falls. His leg swelling does not help with ambulation and the swelling increases risks of inflammation or leg cellulitus. At this time, hospitalist to schedule Lasix as 20 mg IV TID starting at 2 PM on 07/19/2020. continue current ceftriaxone and Doxycycline, PT/OT evaluations -07/20/2020: Patient's cordoba with dark orange urine suggestive of hematuria. discussed with cordoba removal from nurse who reported patient was tugging on cordoba but condom cath not likely able to be placed and so cordoba was retained while on increased IV Lasix 40 mg IV BID as per cardiology service. creatinine noted to be 1.9 in the AM labs. Transitioned from IV ceftriaxone daily and IV Doxycyline BID to oral Keflex and oral Doxycycline to reduce IV fluid volume -07/21/2020 Patient's cordoba with yellow urine draining and while on the current Lasix IV 40 mg BID the creatinine on AM labs improved of 1.7. Can Continue current cordoba use and IV Lasix dosing. Patient continues to have bilateral lower extremity with some redness of the shins still persistent. continue oral antibiotics. He is talking more to physician today and he denies other symptoms on review of systems - continues to be on room air breathing comfortably and he denies any acute pain anywhere. -07/22/2020: Patient continues to have cordoba with yellow draining urine. serum potassium 3.3 and additional potassium ordered. creatinine 1.63. can continue current IV Lasix 40 mg BID dosing. Patient continues to have bilateral lower extremity with some redness of the shins still persistent. continue oral antibiotics. He denies other symptoms on review of systems - continues to be on room air breathing comfortably and he denies any acute pain anywhere -07/23/2020: Patient seen and examined. remains on room air. no acute distress. he denies pain. no other symptoms on review of systems. creatinine 1.73 and as per discussion with cardiology Dr. Ramirez that patient currently diuresing well on current Lasix IV 40 mg BID, the size of his legs appears to have decreased significantly but still bilateral lower extremity edema - any associated redness of the legs appears overall improved. Discussed with Dr. Ramirez what he would consider as a reasonable oral diuretic dosing for when patient returns to [facility] with - Dr. Ramirez reports he will further evaluate and make further recommendations (2) Atrial fibrillation with RVR: -admission EKG with A. fib with RVR with HR of 117. Previously admitted with atrial fibrillation in July 2019 and converted to sinus rhythm at that time after IV fluids and Cardizem -admitting physician on 07/19/2020 increased home dose metoprolol tartrate to 25mg BID. PRN IV Lopressor 2.5mg Q6H for HR >110. Admitting team also reported that they "Discussed anticoagulation with cardiology, who feel patient is a poor candidate for anticoagulation due to dementia, fall risk and likely chronic A fib" -Monitor on telemetry -currently rate controlled with metoprolol 25 mg BID (3) Diastolic dysfunction: Chronic diastolic heart failure, 2D echo in 08/12 with EF 60-65%, normal wall motion. Grade 2 diastolic dysfunction, moderate aortic valve sclerosis, trace aortic regurg, moderate tricuspid regurg noted previously -Bilateral lower extremity edema reported to be chronic, per chart review. -Lasix management as above (4) Dementia: -Alert and oriented to self. 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 -Follows with [facility] neurology -Continue aspirin, Plavix, Lipitor (6) Hyperlipidemia: Continue statin (7) Hypertension: -on metoprolol (8) CKD (chronic kidney disease), stage III: -monitoring the renal function (9) Iron deficiency anemia: -Continue iron supplement and daily CBC (10) BPH (benign prostatic hyperplasia): -Continue finasteride and terazosin DVT Ppx: SQ heparin Code status: DNR/DNI per chart review as per admitting hospitalist team PCP: [facility] Admission and Anticipated Discharge Date Admission Date: July 18, 2020 Subjective Patient seen and examined. remains on room air. no acute distress. he denies pain. no other symptoms on review of systems. creatinine 1.73 and as per discussion with cardiology Dr. Ramirez that patient currently diuresing well on current Lasix IV 40 mg BID, the size of his legs appears to have decreased significantly but still bilateral lower extremity edema - any associated redness of the legs appears overall improved. Discussed with Dr. Ramirez what he would consider as a reasonable oral diuretic dosing for when patient returns to [facility] with - Dr. Ramirez reports he will further evaluate and make further recommendations Review of Systems Review of Systems: All systems reviewed & are unremarkable except as noted in Subjective Physical Exam Constitutional: comfortable Eyes: PERRL, conjunctivae normal, anicteric sclerae EOM intact bilaterally ENMT: external ear and nose normal, oropharynx normal Neck: normal visual inspection Respiratory: normal respiratory effort Cardiovascular: Rate/Rhythm: regular rate and + irregularly irregular Gastrointestinal (Abdomen): normal bowel sounds, soft, nontender, no hep atosplenomegaly Musculoskeletal: Head/Neck/Chest: normocephalic and head atraumatic Extremities: + lower leg abnormality (bilateral lower extremity swelling) Neurologic: PERRL, EOMI, accommodation nl, no face palsy, no dysarthria Psychiatric: Orientation: alert Genitourinary: + penis abnormality (cordoba with yellow urine)) Results & Data Results & Data ([facility]) Vital Signs (Past 12 Hours) Vital Signs Temp Pulse Pulse Resp BP Pulse Ox 07/23/20 08:00 36.5 C 78 92 H 16 131/88 95 07/23/20 07:51 80 07/23/20 04:07 36.9 C 55 L 18 136/62 95 07/23/20 00:02 36.6 C 63 16 136/70 94
--- NOTE | 2020-07-23 11:59 | Cardiology Progress Note ---
Date of Service July 23, 2020 Assessment & Plan (1) Atrial fibrillation with rapid ventricular response: Heart rate improved with titration of metoprolol. Continue 25 mg twice daily. He is not a candidate for long-term anticoagulation due to dementia, fall risk with visible ecchymosis, chronic anemia, and frailty. (2) Diastolic dysfunction: Bilateral lower extremity edema present but continues to improve substantially. We will switch furosemide to oral regimen at 40 mg p.o. twice daily. Optimally would like to add spironolactone to her regimen however degree of renal insufficiency relative contraindication Blood pressure trending slightly lower, if persists would reduce Terazosin dosing. Decision will need to be made regarding ongoing use of Aleman (3) Cellulitis: Clinically improving (4) Dementia: (5) Anemia: Admission and Anticipated Discharge Date Admission Date: July 18, 2020 Subjective Patient seen and examined, chart, medications, telemetry reviewed. No accurate history obtained due to underlying dementia. Patient pleasantly confused, looks somewhat brighter today. Telemetry demonstrates persistent atrial fibrillation though with good rate control. Good diuresis overnight Leg edema improved weight down at least 4 to 5 kg Physical Exam Constitutional: well developed, well nourished and + obese Respiratory: no respiratory distress and no labored breathing Auscultation: lungs clear to auscultation bilaterally; no crackles, no rales, no rhonchi and no wheezes Cardiovascular: Rate/Rhythm: + irregularly irregular Heart Sounds: normal S1, normal S2 and + murmur (2/6 systolic murmur heard best at the cardiac base) Vessels: no JVD and no carotid bruit Extremities: + edema (Bilateral lower extremity pretibial edema with erythema, 23+) Gastrointestinal (Abdomen): Inspection/Auscultation: normal bowel sounds; abdomen not distended Percussion/Palpation: abdomen soft; abdomen nontender, no guarding and abdomen not rigid Skin: no rashes, warm and dry Neurologic: moves all extremities and + confused; no focal motor deficits Motor/Sensory: no tremor Results & Data ([facility]) Vital Signs (Past 12 Hours) Vital Signs Temp Pulse Pulse Resp BP Pulse Ox 07/23/20 11:34 36.7 C 87 18 97/57 L 97 07/23/20 08:00 36.5 C 78 92 H 16 131/88 95 07/23/20 07:51 80 07/23/20 04:07 36.9 C 55 L 18 136/62 95 07/23/20 00:02 36.6 C 63 16 136/70 94 Laboratory Results Laboratory Results - last 24 hr 07/23/20 07:29 Sodium 140 Potassium 3.6 Chloride 103 Carbon Dioxide 33 H Anion Gap 4.0 BUN 42 H Creatinine 1.73 H Est Cr Clr Drug Dosing 35.7 Est GFR ( Amer) 40.0 Est GFR (Non-Af Amer) 34.5 BUN/Creatinine Ratio 24.1 H Glucose 95 Calcium 8.2 L (1) Cellulitis Laterality: unspecified laterality Site of cellulitis: extremity Site of cellulitis of extremity: lower extremity Qualified Code(s): L03.119 - Cellulitis of unspecified part of limb
[2020-07-23] MEDS: FUROSEMIDE 40 MG TAB PO SCH (17:44)
[2020-07-23] MEDS: TERAZOSIN HCL 5 MG CAP PO SCH (21:26)
[2020-07-24] MEDS: METOPROLOL TARTRATE 25 MG TAB PO SCH (08:38)
[2020-07-24] MEDS: CLOPIDOGREL BISULFATE 75 MG TAB PO SCH (08:39)
[2020-07-24] MEDS: ASPIRIN 81 MG ECTAB PO SCH (08:39)
[2020-07-24] MEDS: FERROUS SULFATE 325 MG TAB PO SCH ×2 (08:39→17:17)
[2020-07-24] MEDS: ATORVASTATIN 40 MG TAB PO SCH (08:39)
[2020-07-24] MEDS: VITAMIN B COMPLEX TAB PO SCH (08:39)
[2020-07-24] MEDS: cephALEXin 500 MG CAP PO SCH (08:39)
[2020-07-24] MEDS: FUROSEMIDE 40 MG TAB PO SCH ×2 (08:39→17:17)
[2020-07-24] MEDS: LORATADINE 10 MG TAB PO SCH (08:39)
[2020-07-24] MEDS: FINASTERIDE 5 MG TAB PO SCH (08:39)
[2020-07-24] MEDS: DOXYCYCLINE HYCLATE 100 MG CAP PO SCH (08:39)
[2020-07-24] MEDS: PANTOprazole 40 MG TAB PO SCH (08:39)
[2020-07-24] MEDS: HEPARIN SOD 5,000 UNIT/0.5 ML VIAL SQ SCH (08:40)
--- NOTE | 2020-07-24 09:04 | Hospitalist Progress Note ---
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 Some improvement with topical antibiotic cream. Patient was given Rocephin in ED and while continue Rocephin, doxycycline also added. -No evidence of deep venous thrombus within the bilateral lower extremities although venous doppler study on 07/18/2020 compromised by suboptimal penetration. -07/19/2020 AM hospitalist evaluation The patient seen and examined at bedside. He is breathing on room air, does not appear to be short of breath. His heart rhythm on telemetry continues to be in atrial fibrillation but generally controlled in the low 100s. As consistent with patient's reported history of dementia, he is a poor historian and does not answer questions well in general - He could not tell me where he lives (notes document that patient is from [facility]). Patient's history and physical reports of chronic lower extremity edema due to venous insufficiency, however on my exam as current hospitalist the bilateral lower extremity appears to be substantial. Patient's blood pressure is low normotensive measured as 95/59. Nurse gave the typical oral home dose of furosmide 20 mg daily in the AM. However, patient may benefit from more Lasix. The hospital notes in the past reports that patient's is a not a anticoagulation candidate because of history of falls. His leg swelling does not help with ambulation and the swelling increases risks of inflammation or leg cellulitus. At this time, hospitalist to schedule Lasix as 20 mg IV TID starting at 2 PM on 07/19/2020. continue current ceftriaxone and Doxycycline, PT/OT evaluations -07/20/2020: Patient's cordoba with dark orange urine suggestive of hematuria. discussed with cordoba removal from nurse who reported patient was tugging on cordoba but condom cath not likely able to be placed and so cordoba was retained while on increased IV Lasix 40 mg IV BID as per cardiology service. creatinine noted to be 1.9 in the AM labs. Transitioned from IV ceftriaxone daily and IV Doxycyline BID to oral Keflex and oral Doxycycline to reduce IV fluid volume -07/21/2020 Patient's cordoba with yellow urine draining and while on the current Lasix IV 40 mg BID the creatinine on AM labs improved of 1.7. Can Continue current cordoba use and IV Lasix dosing. Patient continues to have bilateral lower extremity with some redness of the shins still persistent. continue oral antibiotics. He is talking more to physician today and he denies other symptoms on review of systems - continues to be on room air breathing comfortably and he denies any acute pain anywhere. -07/22/2020: Patient continues to have cordoba with yellow draining urine. serum potassium 3.3 and additional potassium ordered. creatinine 1.63. can continue current IV Lasix 40 mg BID dosing. Patient continues to have bilateral lower extremity with some redness of the shins still persistent. continue oral antibiotics. He denies other symptoms on review of systems - continues to be on room air breathing comfortably and he denies any acute pain anywhere -07/23/2020: Patient seen and examined. remains on room air. no acute distress. he denies pain. no other symptoms on review of systems. creatinine 1.73 and as per discussion with cardiology Dr. Ramirez that patient currently diuresing well on current Lasix IV 40 mg BID, the size of his legs appears to have decreased significantly but still bilateral lower extremity edema - any associated redness of the legs appears overall improved. Discussed with Dr. Ramirez what he would consider as a reasonable oral diuretic dosing for when patient returns to [facility] with - Dr. Ramirez reports he will further evaluate and make further recommendations 07/24/2020 updates: The patient was transitioned to oral Lasix 40 mg BID started on 07/23/2020, his legs still have some residual edema bilaterally but there are more wrinkles of the legs to show that his admission skin distention of the legs are much improved. No acute erythema suggestive of cellulitis at this time and antibiotics can be stopped at this time. Patient has been making urine after cordoba removed on 07/23/2020. Patient with baseline dementia, his skin care of buttock reviewed and no ulcers, patient will benefit from frequent positioning when he is on the bed. In the hospital stay, he has been moved from bed to chair at times. Discussed with behavioral health case manager that patient appears medically ready for hospital discharge on oral diuretics. manager costing requires PT/OT assessment on 07/24/2020 cardiology appointment scheduled for 08/06/2020 3:00 PM Provider Thom Black PA-C Department Cardiology, [facility] (2) Atrial fibrillation with RVR: -admission EKG with A. fib with RVR with HR of 117. Previously admitted with atrial fibrillation in July 2019 and converted to sinus rhythm at that time after IV fluids and Cardizem -admitting physician on 07/19/2020 increased home dose metoprolol tartrate to 25mg BID. PRN IV Lopressor 2.5mg Q6H for HR >110. Admitting team also reported that they "Discussed anticoagulation with cardiology, who feel patient is a poor candidate for anticoagulation due to dementia, fall risk and likely chronic A fib" -Monitor on telemetry -currently rate controlled with metoprolol 25 mg BID, chronic (persistent) atrial fibrillation on telemetry (3) Diastolic dysfunction: Chronic diastolic heart failure, 2D echo in 08/12 with EF 60-65%, normal wall motion. Grade 2 diastolic dysfunction, moderate aortic valve sclerosis, trace aortic regurg, moderate tricuspid regurg noted previously -Bilateral lower extremity edema reported to be chronic, per chart review. -Lasix management as above (4) Dementia: -Alert and oriented to self. 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 -Follows with [facility] neurology -Continue aspirin, Plavix, Lipitor (6) Hyperlipidemia: Continue statin (7) Hypertension: -on metoprolol (8) CKD (chronic kidney disease), stage III: -renal function stable (9) Iron deficiency anemia: -Continue iron supplement and daily CBC (10) BPH (benign prostatic hyperplasia): -Continue finasteride and terazosin DVT Ppx: SQ heparin while in the hospital setting only Code status: DNR/DNI per chart review as per admitting hospitalist team PCP: Jaime trejo negative COVID-19 screening test on 07/18/2020 Admission and Anticipated Discharge Date Admission Date: July 18, 2020 Subjective The patient was transitioned to oral Lasix 40 mg BID started on 07/23/2020, his legs still have some residual edema bilaterally but there are more wrinkles of the legs to show that his admission skin distention of the legs are much improved. No acute erythema suggestive of cellulitis at this time and an tibiotics can be stopped. Patient has been making urine after cordoba removed on 07/23/2020. Patient with baseline dementia, his skin care of buttock reviewed and no ulcers, patient will benefit from frequent positioning when he is on the bed. In the hospital stay, he has been moved from bed to chair at times. Discussed with behavioral health case manager that patient appears medically ready for hospital discharge on oral diuretics. manager costing requires PT/OT assessment on 07/24/2020 No acute distress by patient. remains on room air. no chest pain. no dizziness. no headache. no nausea. no vomiting. no other symptoms. chronic atrial fibrillation on telemetry Review of Systems Review of Systems: Unobtainable due to cognitive status Physical Exam Constitutional: comfortable Eyes: PERRL, conjunctivae normal, anicteric sclerae EOM intact bilaterally ENMT: external ear and nose normal, oropharynx normal Neck: normal visual inspection Respiratory: normal respiratory effort Cardiovascular: Rate/Rhythm: regular rate and + irregularly irregular Gastrointestinal (Abdomen): normal bowel sounds, soft, nontender, no hepatosplenomegaly Musculoskeletal: Head/Neck/Chest: normocephalic and head atraumatic Extremities: + lower leg abnormality (bilateral lower extremity swelling generally reduced in size) Skin: some skin changes of lower back but no actual ulcer Neurologic: PERRL, EOMI, accommodation nl, no face palsy, no dysarthria Psychiatric: Orientation: alert Genitourinary: + penis abnormality (cordoba with yellow urine)) Results & Data Results & Data ([facility]) Vital Signs (Past 12 Hours) Vital Signs Temp Pulse Pulse Resp BP Pulse Ox 07/24/20 07:32 36.4 C L 71 18 100/52 L 94 07/24/20 07:29 64 07/24/20 04:00 36.6 C 84 18 105/61 94 07/24/20 00:00 36.8 C 91 H 18 104/67 95 07/23/20 22:18 102 H
--- NOTE | 2020-07-24 10:49 | Cardiology Progress Note ---
Date of Service July 24, 2020 Assessment & Plan (1) Atrial fibrillation with rapid ventricular response: Heart rate improved with titration of metoprolol. Continue 25 mg twice daily. He is not a candidate for long-term anticoagulation due to dementia, fall risk with visible ecchymosis, chronic anemia, and frailty. (2) Diastolic dysfunction: Responding to oral diuretics with furosemide 40 mg twice per day. Would add potassium supplement 10 mEq daily on discharge. Will need BMP in 3 days (3) Cellulitis: Clinically improving (4) Dementia: (5) Anemia: Admission and Anticipated Discharge Date Admission Date: July 18, 2020 Subjective Patient seen and examined, chart, medications, telemetry reviewed. No accurate history obtained due to underlying dementia. Overall no complaints. Leg edema continues to improve, weight decline Physical Exam Constitutional: well developed, well nourished and + obese Respiratory: no respiratory distress and no labored breathing Auscultation: lungs clear to auscultation bilaterally; no crackles, no rales, no rhonchi and no wheezes Cardiovascular: Rate/Rhythm: + irregularly irregular Heart Sounds: normal S1, normal S2 and + murmur (2/6 systolic murmur heard best at the cardiac base) Vessels: no JVD and no carotid bruit Extremities: + edema (Bilateral lower extremity edema reduced, 1-2+) Gastrointestinal (Abdomen): Inspection/Auscultation: normal bowel sounds; abdomen not distended Percussion/Palpation: abdomen soft; abdomen nontender, no guarding and abdomen not rigid Skin: no rashes, warm and dry Neurologic: moves all extremities and + confused; no focal motor deficits Motor/Sensory: no tremor Results & Data ([facility]) Vital Signs (Past 12 Hours) Vital Signs Temp Pulse Pulse Resp BP Pulse Ox 07/24/20 07:32 36.4 C L 71 18 100/52 L 94 07/24/20 07:29 64 07/24/20 04:00 36.6 C 84 18 105/61 94 07/24/20 00:00 36.8 C 91 H 18 104/67 95 (1) Cellulitis Laterality: unspecified laterality Site of cellulitis: extremity Site of cellulitis of extremity: lower extremity Qualified Code(s): L03.119 - Cellulitis of unspecified part of limb
--- NOTE | 2020-07-24 12:20 | Discharge Summary ---
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 Patient has advanced dementia, so history limited. No family at bedside. Per phone discussion with staff, patient has been having more frequent falls with increased lower extremity swelling over the past month. Ambulates with walker. Was last seen by provider at the beginning of June and was started on Lasix 20 mg, atorvastatin 40 mg and aspirin 81 mg daily. Over the past week or so, patient has been complaining of lower extremity pain with some redness and warmth as well. Staff has been applying topical antibiotic cream with some improvement. Denies any chest pain, shortness of breath, abdominal pain or pain in legs at this time. ROS otherwise limited due to cognitive state. In ED, patient is afebrile and saturating at 97% on room air. EKG with A. fib with RVR with HR of 117. Previously admitted with atrial fibrillation in July 2019. At that time, patient was determined to be a poor candidate for anticoagulation due to dementia and fall risk. CXR with stable mild cardiomegaly and left basilar linear densities favor scarring or subsegmental atelectasis. Bilateral venous Dopplers without evidence of DVT. Creatinine of 1.75, which is at baseline. COVID screen is negative. Potassium of 4, magnesium of 2.4. TSH elevated at 7.4 but free T4 within normal range. Principal Diagnosis Bilateral lower leg cellulitis with Bilateral Lower extremity edema from chronic venous insufficiency atrial fibrillation with Rapid Ventricular Response Chronic diastolic heart failure, CKD (chronic kidney disease), stage III BPH (benign prostatic hyperplasia): Dementia (with history of CVA in the past) Discharge Exam Constitutional comfortable Eyes PERRL, conjunctivae normal, anicteric sclerae EOM intact bilaterally ENMT external ear and nose normal, oropharynx normal Neck normal visual inspection Respiratory normal respiratory effort Cardiovascular Rate/Rhythm: regular rate and + irregularly irregular Gastrointestinal (Abdomen) normal bowel sounds, soft, nontender, no hepatosplenomegaly Musculoskeletal Head/Neck/Chest: normocephalic and head atraumatic Extremities: + lower leg abnormality (bilateral lower extremity swelling generally reduced in size) Neurologic PERRL, EOMI, accommodation nl, no face palsy, no dysarthria Psychiatric Orientation: alert Discharge Data Allergies Allergy/AdvReac Type Severity Reaction Status Date / Time No Known Allergies Allergy Unverified 07/18/20 15:00 Consultations 07/18/20 16:23 ED Decision to Admit Stat 07/18/20 19:09 Consult Case Management - Discharge Planning Routine 07/19/20 07:02 Consult Cardiology Routine Ordered Studies 07/18/20 14:08 US venous doppler LE Stat Hospital Course (1) Bilateral lower leg cellulitis: with Bilateral Lower extremity edema from chronic venous insufficiency -As per 07/18/2020 History and physical that "This is an 89-year-old male with PMH of advanced dementia, hypertension, 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 Some improvement with topical antibiotic cream. Patient was given Rocephin in ED and while continue Rocephin, doxycycline also added. -No evidence of deep venous thrombus within the bilateral lower extremities although venous doppler study on 07/18/2020 compromised by suboptimal penetration. -07/19/2020 AM hospitalist evaluation The patient seen and examined at bedside. He is breathing on room air, does not appear to be short of breath. His heart rhythm on telemetry continues to be in atrial fibrillation but generally controlled in the low 100s. As consistent with patient's reported history of dementia, he is a poor historian and does not answer questions well in general - He could not tell me where he lives (notes document that patient is from [facility]). Patient's history and physical reports of chronic lower extremity edema due to venous insufficiency, however on my exam as current hospitalist the bilateral lower extremity appears to be substantial. Patient's blood pressure is low normotensive measured as 95/59. Nurse gave the typical oral home dose of furosmide 20 mg daily in the AM. However, patient may benefit from more Lasix. The hospital notes in the past reports that patient's is a not a anticoagulation candidate because of history of falls. His leg swelling does not help with ambulation and the swelling increases risks of inflammation or leg cellulitus. At this time, hospitalist to schedule Lasix as 20 mg IV TID starting at 2 PM on 07/19/2020. continue current ceftriaxone and Doxycycline, PT/OT evaluations -07/20/2020: Patient's cordoba with dark orange urine suggestive of hematuria. discussed with cordoba removal from nurse who reported patient was tugging on cordoba but condom cath not likely able to be placed and so cordoba was retained while on increased IV Lasix 40 mg IV BID as per cardiology service. creatinine noted to be 1.9 in the AM labs. Transitioned from IV ceftriaxone daily and IV Doxycyline BID to oral Keflex and oral Doxycycline to reduce IV fluid volume -07/21/2020 Patient's cordoba with yellow urine draining and while on the current Lasix IV 40 mg BID the creatinine on AM labs improved of 1.7. Can Continue current cordoba use and IV Lasix dosing. Patient continues to have bilateral lower extremity with some redness of the shins still persistent. continue oral antibiotics. He is talking more to physician today and he denies other symptoms on review of systems - continues to be on room air breathing comfortably and he denies any acute pain anywhere. -07/22/2020: Patient continues to have cordoba with yellow draining urine. serum potassium 3.3 and additional potassium ordered. creatinine 1.63. can continue current IV Lasix 40 mg BID dosing. Patient continues to have bilateral lower extremity with some redness of the shins still persistent. continue oral antibiotics. He denies other symptoms on review of systems - continues to be on room air breathing comfortably and he denies any acute pain anywhere -07/23/2020: Patient seen and examined. remains on room air. no acute distress. he denies pain. no other symptoms on review of systems. creatinine 1.73 and as per discussion with cardiology Dr. Ramirez that patient currently diuresing well on current Lasix IV 40 mg BID, the size of his legs appears to have decreased significantly but still bilateral lower extremity edema - any associated redness of the legs appears overall improved. Discussed with Dr. Ramirez what he would consider as a reasonable oral diuretic dosing for when patient returns to [facility] with - Dr. Ramirez reports he will further evaluate and make further recommendations 07/24/2020 updates: The patient was transitioned to oral Lasix 40 mg BID started on 07/23/2020, his legs still have some residual edema bilaterally but there are more wrinkles of the legs to show that his admission skin distention of the legs are much improved. No acute erythema suggestive of cellulitis at this time and antibiotics can be stopped at this time. Patient has been making urine after cordoba removed on 07/23/2020. Patient with baseline dementia, his skin care of buttock reviewed and no ulcers, patient will benefit from frequent positioning when he is on the bed. In the hospital stay, he has been moved from bed to chair at times. Discussed with telehealth case manager that patient appears medically ready for hospital discharge on oral diuretics. discharge to [facility] Will need follow up with primary care doctor discharge medications after this hospital assessment sent to [facility] [address] [place] [address] of furosemide 40 mg BID and metoprolol 25 mg BID Patient can have comprehensive metabolic panel checked by primary care doctor or at cardiology clinic cardiology appointment scheduled for 08/06/2020 3:00 PM Provider Thom Black PA-C Department Cardiology, [facility] (2) Atrial fibrillation with RVR: -admission EKG with A. fib with RVR with HR of 117. Previously admitted with atrial fibrillation in July 2019 and converted to sinus rhythm at that time after IV fluids and Cardizem -admitting physician on 07/19/2020 increased home dose metoprolol tartrate to 25mg BID. PRN IV Lopressor 2.5mg Q6H for HR >110. Admitting team also reported that they "Discussed anticoagulation with cardiology, who feel patient is a poor candidate for anticoagulation due to dementia, fall risk and likely chronic A fib" -Monitor on telemetry -currently rate controlled with metoprolol 25 mg BID, chronic (persistent) atrial fibrillation on telemetry (3) Diastolic dysfunction: Chronic diastolic heart failure, 2D echo in 08/12 with EF 60-65%, normal wall motion. Grade 2 diastolic dysfunction, moderate aortic valve sclerosis, trace aortic regurg, moderate tricuspid regurg noted previously -Bilateral lower extremity edema reported to be chronic, per chart review. -Lasix management as above (4) Dementia: -Alert and oriented to self. 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 -[facility] -Continue aspirin, Plavix, Lipitor (6) Hyperlipidemia: Continue statin (7) Hypertension: -on metoprolol (8) CKD (chronic kidney disease), stage III: -renal function stable (9) Iron deficiency anemia: -Continue iron supplement and daily CBC (10) BPH (benign prostatic hyperplasia): -Continue finasteride and terazosin DVT Ppx: SQ heparin while in the hospital setting only Code status: DNR/DNI per chart review as per admitting hospitalist team PCP: Jaime trejo negative COVID-19 screening test on 07/18/2020 and also negative on 07/24/2020 Total Time Total Time Spent Total Time Spent (In Minutes): 40 minutes Total Time Includes: Examination of the Patient, Discharge Planning, Medication Reconciliation and Communication With Other Providers Discharge Plan Discharge Items Patient Disposition: Trans Resident Long-Term Care Reason For Visit: A FIB WITH RVR Discharge Diagnosis: Bilateral lower leg cellulitis with Bilateral Lower extremity edema from chronic venous insufficiency atrial fibrillation with Rapid Ventricular Response Chronic diastolic heart failure, CKD (chronic kidney disease), stage III BPH (benign prostatic hyperplasia): Dementia (with history of CVA in the past) Condition on Discharge: Fair Activity: Resume your previous activity Non-emergency contact: Primary Care Provider and [employer] Operator Call non-emergency contact if: you have any medication questions Follow-up/Referrals: JAIME TREJOELLERSLIE ADDIE [Primary Care Provider] - Diet: Heart Healthy Diet Comment: minced, moist diet Addtl Attending Provider Instructions: discharge to [facility] Will need follow up with primary care doctor discharge medications after this hospital assessment sent to [facility] [address] [place] [address] of furosemide 40 mg BID and metoprolol 25 mg BID Patient can have comprehensive metabolic panel checked by primary care doctor or at cardiology clinic cardiology appointment scheduled for 08/06/2020 3:00 PM Provider Thom Black PA-C Department Cardiology, [facility] Pending Studies at Discharge: No Stand-Alone Forms: My [facility] Skilled Items Patient informed of condition?: Yes DNR: Yes Discharge Level of Care: Other Communicable Disease: No Discharge Prognosis: Stable Lines: None Urinary Catheter: No Medications and DC Order Prescriptions: New furosemide 40 mg Tablet 40 mg PO BID 30 Days Qty: 60 RF: 0 metoprolol tartrate 25 mg Tablet 25 mg PO BID 30 Days Qty: 60 RF: 0 Continued pantoprazole 40 mg tablet,delayed release (DR/EC) 40 mg PO QAM RF: 0 finasteride 5 mg tablet 5 mg PO QAM RF: 0 loratadine 10 mg Tablet 10 mg PO QAM RF: 0 aspirin [Aspirin Low Dose] 81 mg Tablet,Delayed Release (Dr/Ec) 81 mg PO QAM RF: 0 clopidogrel 75 mg Tablet 75 mg PO QAM Qty: 90 RF: 0 albuterol sulfate 90 mcg/actuation HFA aerosol inhaler 2 puff INHALATION Q4H PRN (Reason: Wheezing and SOB) RF: 0 atorvastatin [Lipitor] 40 mg tablet 40 mg PO QAM RF: 0 ferrous sulfate 325 mg (65 mg iron) Tablet,Delayed Release (Dr/Ec) 325 mg PO BIDM Qty: 60 RF: 1 vitamin B complex Capsule 1 cap PO QAM RF: 0 terazosin 10 mg capsule 10 mg PO HS Qty: 0 RF: 0 Discontinued furosemide 20 mg Tablet 20 mg PO QAM RF: 0 metoprolol tartrate 25 mg Tablet 12.5 mg PO BID RF: 0 Discharge Orders: Discharge Order (Routine); Ordered 07/24/20 Ordered By: Sonny Lopez Admission Data Admit Date/Time: 07/18/20 16:56 Attending Provider: Sonny Lopez Admit Provider: Michael Velez Primary Care Provider: JARED ALATORRE [facility] Other Providers: Michael Velez ; Fernando Juarez
== END 2020-07-24 18:26 | disposition home or self-care (01) | DRG 300 ==
LOC: ED 13:32 → SUATTDRO 16:56 → 2N 16:56